=== PATIENT | female | born 1965 | race Caucasian/White ===

== ENCOUNTER 2017-06-27 18:18 | Emergency (ER) | payer MEDICAID ==
[2017-06-27] MEDS ORDERED: Ketorolac 30 MG/ML SDV IVPUSH ONE (18:46)
[2017-06-27] MEDS ORDERED: Sodium Chloride 0.9% 10 ML Syringe FLUSH PRN (18:46)
[2017-06-27] MEDS ORDERED: Haloperidol Lactate 5 MG/ML SDV IVPUSH ONE (18:46)
[2017-06-27] MEDS ORDERED: hydrOXYzine HCl 25 MG/ML SDV IM ONE (18:56)
[2017-06-27] MEDS ORDERED: Sodium Chloride 0.9% 1,000 ML IV ONE (18:57)
[2017-06-27] MEDS ORDERED: Haloperidol Lactate 5 MG/ML SDV IM ONE (19:15)
[2017-06-27] MEDS ORDERED: Ketorolac 60 MG/2 ML SDV IM ONE (19:20)
--- NOTE | 2017-06-27 19:24 | EDM.PDOC ---
ED HPI GENERAL MEDICAL PROBLEM - General Chief Complaint: Headache Stated Complaint: HEADACHE Time Seen by Provider: 06/27/17 18:38 Source of Information: Reports: Patient History Limitations: Reports: No Limitations - History of Present Illness INITIAL COMMENTS - FREE TEXT/NARRATIVE: Patient is a 52-year-old female with a history of CVA, coronary artery disease, migraines, seizures, bipolar, OCD, PTSD, anxiety, and depression who presents to the ED complaining of left-sided migraine headache. Patient states this started approximately 4 days ago. She has taken Excedrin Migraine and also Imitrex with no relief. Headache is mild to moderate intensity similar to previous episodes. It is not described as the worst headache of her life. Patient walked into the ED on her own accord. Has some photosensitivity noted with no hyperacusis. Denies any focalized neurological deficits. No increased stress in life. Has recently moved from [facility] and does not have a PCP here locally. In addition patient suffered a stroke twice last year and has left-sided facial droop with no other lasting effects. She denies any fever, stiff neck, chest pain, shortness of breath, numbness or tingling to extremities , dysuria, abdominal pain, or any additional complaints. She is on no anticoagulants. Treatments PUBLIC HOUSING INTERVIEWER: Reports: Other (see below) Other Treatments PUBLIC HOUSING INTERVIEWER: excedrin Left Headache Pain Score (Numeric/FACES): 9 - Related Data Allergies Allergy/AdvReac Type Severity Reaction Status Date / Time amitriptyline Allergy Cannot Verified 12/13/14 20:30 Remember ammonia Allergy Cannot Verified 05/01/15 10:29 Remember diphenhydramine HCl Allergy Cannot Verified 12/13/14 20:30 [From Benadryl] Remember divalproex sodium Allergy Other Verified 06/27/17 18:34 [From Depakote] gabapentin [From Neurontin] Allergy Cannot Verified 12/13/14 20:30 Remember latex Allergy Shortness Verified 12/13/14 20:30 of Breath perfume Allergy Cannot Verified 04/30/15 13:50 Remember soap Allergy Cannot Verified 04/30/15 13:50 Remember fiberglass luggage molder Allergy Cannot Uncoded 04/30/15 13:50 Remember Home Meds: Home Meds Omeprazole [Prilosec] 20 mg PO DAILY 04/30/15 [History] cloNIDine HCl [Catapres] 0.1 mg PO DAILY 04/30/15 [History] clonazePAM [Clonazepam] 0.5 mg PO BEDTIME 04/30/15 [History] Doxepin [SINEquan] 300 mg PO BEDTIME 06/27/17 [History] Lurasidone HCl [Latuda] 60 mg PO DAILY 06/27/17 [History] QUEtiapine [SEROquel] 300 mg PO DAILY 06/27/17 [History] SUMAtriptan [Imitrex] 1 injection INJECT DAILY PRN 06/27/17 [History] Past Medical History HEENT History: Reports: Impaired Vision Other HEENT History: otitis media, eye surgery, glasses Cardiovascular History: Reports: Hypertension Other Cardiovascular History: angioplasty Respiratory History: Reports: Asthma Gastrointestinal History: Reports: GERD, Hiatal Hernia Genitourinary History: Reports: Urinary Incontinence CUT FILER History: Reports: Other OB/BYN History: cervical mass, chlamydia in 1989; currently S/P TVH Other Musculoskeletal History: Degenerative joint disease, talupes cavus, R Side low back pain and sciatica, back surgery x 2 Neurological History: Reports: CVA, Migraines, Seizure Other Neuro History: hx of seizures; last seizure was 09/2014; not a seizure diagnosis per EEG, but a seizure caused by medications; stroke x 2 a year ago Psychiatric History: Reports: Bipolar, OCD, PTSD Other Psychiatric History: insomnia; Pt. has tremors noted to her head, neck and arms. Pt. states the tremors are from the medication she is on. Dermatologic History: Reports: Decubitus Ulcer Other Dermatologic History: Previously healed decubitus ulcers on thighs due to neuropathy and treated by [facility] in [place], [place]. Decubitus ulcer on heel of right foot treated by legal arbitrator in [place], [place]. A "crack" is noted to very dry skin or callous to Pt.'s heel is still noted - Past Surgical History Female Surgical History: Reports: Endometrial Ablation, Tubal Ligation Social & Family History - Family History HEENT: Reports: Cataract Cardiac: Reports: [place] GI: Reports: Inflammatory Bowel Disease, Other (See Below) Other GI Family History: colitis OBGYN: Reports: Other (See Below) Other OBGYN Family History: cervical cancer Psychiatric: Reports: ADHD, Bipolar, Schizophrenia Endocrine/Metabolic: Reports: Other (See Below) Other Endocrine/Metabolic Family History: several family members with diabetes Oncologic: Reports: Cervix, Uterine - Tobacco Use Smoking Status *Q: Never Smoker Years of Tobacco use: 13 Used Tobacco, but Quit: No Second Hand Smoke Exposure: No - Caffeine Use Caffeine Use: Reports: None - Alcohol Use Days Per Week of Alcohol Use: 0 - Recreational Drug Use Recreational Drug Use: No Drug Use in Last 12 Months: Yes Recreational Drug Type: Reports: Marijuana/Hashish Recreational Drug Use Frequency: Rarely ED ROS GENERAL - Review of Systems Review Of Systems: ROS reveals no pertinent complaints other than HPI. - Physical Exam Exam: See Below Exam Limited By: No Limitations General Appearance: Alert, WD/WN, Mild Distress Eye Exam: Bilateral Eye: EOMI, PERRL Ears: Hearing Grossly Normal Nose: Normal Inspection Throat/Mouth: Normal Inspection, Normal Oropharynx, Normal Voice, No Airway Compromise Head Exam: Atraumatic, Normocephalic. No: Scalp Tenderness, Facial Tenderness Neck: Normal Inspection, Supple, Non-Tender, Full Range of Motion Respiratory/Chest: No Respiratory Distress, Lungs Clear, Normal Breath Sounds, No Accessory Muscle Use Cardiovascular: Normal Peripheral Pulses, Regular Rate, Rhythm GI/Abdominal: Normal Bowel Sounds, Soft, Non-Tender, No Organomegaly, No Distention Neuro Exam (Abbreviated): Alert, Oriented, CN II-XII Intact, Normal Cognition, Normal Gait, No Motor/Sensory Deficits, Other (Patient has mild left-sided facial droop secondary to 2 strokes this past year. Patient has no slurred speech, due with the swelling, uvula deviation, weakness discrepancy is to the upper and lower extremities. Cerebellar function intact including: Finger-nose, rapid alternating movements, and [id number].) Back Exam: Normal Inspection Extremities: Normal Inspection, Normal Range of Motion, Non-Tender, Normal Capillary Refill Psychiatric: Normal Affect, Normal Mood Skin Exam: Warm, Dry, Intact, Normal Color Course - Vital Signs Last Recorded V/S: Last Vital Signs Temp 97.1 F 06/27/17 18:30 Pulse 121 H 06/27/17 18:30 Resp 20 06/27/17 18:30 BP 140/90 06/27/17 20:35 Pulse Ox 99 06/27/17 18:30 - Orders/Labs/Meds Orders: Active Orders 24 hr Category Date Time Status EKG 12 Lead [EKG Documentation Completion] [RC] STAT Care 06/27/17 18:58 Active Peripheral IV Care [RC] . DIRECTED Care 06/27/17 18:46 Inactive Meds: Medications Discontinued Medications Generic Name Dose Route Start Last Admin Trade Name Freq PRN Reason Stop Dose Admin Haloperidol Lactate 5 mg 06/27/17 18:46 Haldol IVPUSH 06/27/17 18:47 ONETIME ONE Haloperidol Lactate 5 mg 06/27/17 19:15 06/27/17 19:28 Haldol IM 06/27/17 19:16 5 mg ONETIME ONE Administration Hydroxyzine HCl 25 mg 06/27/17 18:56 06/27/17 19:29 Vistaril IM 06/27/17 18:57 25 mg ONETIME ONE Administration Sodium Chloride 1,000 mls @ 999 mls/hr 06/27/17 18:57 Normal Saline IV 06/27/17 19:57 ONETIME ONE Ketorolac Tromethamine 30 mg 06/27/17 18:46 Toradol IVPUSH 06/27/17 18:47 ONETIME ONE Ketorolac Tromethamine 60 mg 06/27/17 19:20 06/27/17 19:33 Toradol IM 06/27/17 19:21 60 mg ONETIME ONE Administration Lisinopril 10 mg 06/28/17 20:23 Prinivil PO 06/28/17 20:24 DAILY ONE Lisinopril 10 mg 06/27/17 20:23 06/27/17 20:35 Prinivil PO 06/27/17 20:24 10 mg DAILY ONE Administration Sodium Chloride 10 ml 06/27/17 18:46 Saline Flush FLUSH ASDIRECTED PRN Keep Vein Open - Re-Assessments/Exams Free Text/Narrative Re-Assessment/Exam: EKG obtained sinus rhythm with one PVC. Right atrial hypertrophy. Diffuse early repolarization pattern. No signs of ischemia. QTC 431. For abortive therapy Will go ahead with albuterol 5 mg IM, hydroxyzine 25 mg IM , and Toradol 60 mg IM. No imaging will be obtained at this time. Again this is not the worst headache of her life. Similar to previous episodes. Refractory to home medication therapy. 2007 Reassessment: Patient states the headache has significantly improved. She is ready be discharged home. She does have a ride arranged. Discharge instructions as documented. Pt's BP prior to discharge was 162/101. States she is on lisinopril 10 mg everyday. Will increase to 20mg everyday. Additional 10mg's given in the E.D. Departure - Departure Time of Disposition: 20:09 Disposition: Home, Self-Care 01 Condition: Good Clinical Impression: Migraine - Discharge Information Instructions: Migraine Headache, [id number] Referrals: PCP,Not In Area [Primary Care Provider] - Forms: ED Department Discharge Additional Instructions: Blood pressure continued to be elevated with admission to the ED. Will increase your lisinopril from 10 mg every day to 20 mg every day. Push the fluids. In addition will have you go home find a dark room to sleep with no distractions. May utilize Aleve 1-2 tabs twice a day and also Tylenol 650 mg every 4-6 hours for headache. Take Zofran 4 mg ODT every 6 hours as needed for nausea vomiting. Follow-up with your primary care provider this week for reevaluation. Suggest taking your blood pressure once daily with a log. BRing the log and also blood pressure machine with you to your next appointment. Take the blood pressure at the same time and same way every day for consistency. Return to the ED if you develop any new or worsening symptoms. - My Orders Last 24 Hours: My Active Orders 06/27/17 18:46 Peripheral IV Care [RC] . DIRECTED 06/27/17 18:58 EKG 12 Lead [EKG Documentation Completion] [RC] STAT - Assessment/Plan Last 24 Hours: My Active Orders 06/27/17 18:46 Peripheral IV Care [RC] . DIRECTED 06/27/17 18:58 EKG 12 Lead [EKG Documentation Completion] [RC] STAT
[2017-06-27] MEDS ORDERED: Lisinopril 10 MG Tab PO ONE (20:23)
[2017-06-27 20:37] VITALS: BP 140/90
[2017-06-28] MEDS ORDERED: Lisinopril 10 MG Tab PO ONE (20:23)
== END 2017-06-27 20:35 | disposition home or self-care (01) ==
LOC: JD.ED 18:18
DX: G43.909 Migraine, unspecified, not intractable, without status migrainosus (principal); I10 Essential (primary) hypertension; Z86.73 Personal history of transient ischemic attack (TIA), and cerebral infarction without residual deficits; Z88.8 Allergy status to other drugs, medicaments and biological substances; Z91.040 Latex allergy status; Z91.048 Other nonmedicinal substance allergy status; Z79.899 Other long term (current) drug therapy
CPT/HCPCS: 93005; 96372; 99284; A9270; J1885; J3410; 93010; J1630

== ENCOUNTER 2017-08-26 15:10 | Emergency (ER) | payer MEDICAID ==
[2017-08-26 15:22] VITALS: BP 197/101
[2017-08-26] MEDS ORDERED: Sodium Chloride 0.9% 10 ML Syringe FLUSH PRN (15:38)
[2017-08-26] MEDS ORDERED: Aspirin 81 MG Tab.Chew PO ONE (15:38)
--- NOTE | 2017-08-26 15:39 | EDM.PDOC ---
ED HPI GENERAL MEDICAL PROBLEM - General Chief Complaint: Cardiovascular Problem Stated Complaint: CHEST PAIN Time Seen by Provider: 08/26/17 15:18 Source of Information: Reports: Patient History Limitations: Reports: No Limitations - History of Present Illness INITIAL COMMENTS - FREE TEXT/NARRATIVE: The patient presents with left sided chest pain. This started about 3 weeks ago. The pain is on the left side up to her arm and shoulder. She has no shortness of breath with it. The pain is there most of the time. It is worse at night. She have reflux at night with more pain. She has no fever, chills, cough, abdominal pain, nausea or vomiting. She has no history of asthma and HTN. She also had angioplasty. She has a history of hiatal hernia. Onset: Gradual Duration: Week(s): (3) Location: Reports: Chest Quality: Reports: Sharp Severity: Moderate Improves with: Reports: None Worsens with: Reports: None Associated Symptoms: Reports: Chest Pain. Denies: Cough, Fever/Chills, Headaches, Nausea/Vomiting, Shortness of Breath - Related Data Allergies Allergy/AdvReac Type Severity Reaction Status Date / Time amitriptyline Allergy Cannot Verified 08/26/17 15:22 Remember ammonia Allergy Cannot Verified 08/26/17 15:22 Remember diphenhydramine HCl Allergy Cannot Verified 08/26/17 15:22 [From Benadryl] Remember divalproex sodium Allergy Other Verified 08/26/17 15:22 [From Depakote] gabapentin [From Neurontin] Allergy Cannot Verified 08/26/17 15:22 Remember latex Allergy Shortness Verified 08/26/17 15:22 of Breath perfume Allergy Cannot Verified 08/26/17 15:22 Remember soap Allergy Cannot Verified 08/26/17 15:22 Remember pier hand helper Allergy Cannot Uncoded 08/26/17 15:22 Remember Home Meds: Home Meds Omeprazole [Prilosec] 20 mg PO DAILY 04/30/15 [History] cloNIDine HCl [Catapres] 0.1 mg PO DAILY 04/30/15 [History] clonazePAM [Clonazepam] 0.5 mg PO BEDTIME 04/30/15 [History] Doxepin [SINEquan] 300 mg PO BEDTIME 06/27/17 [History] Lurasidone HCl [Latuda] 60 mg PO DAILY 06/27/17 [History] QUEtiapine [SEROquel] 300 mg PO DAILY 06/27/17 [History] SUMAtriptan [Imitrex] 1 injection INJECT DAILY PRN 06/27/17 [History] Desvenlafaxine Succinate [Pristiq ER] 25 mg PO DAILY 08/26/17 [History] Lisinopril 20 mg PO DAILY 08/26/17 [History] Metoclopramide HCl [Reglan] 5 mg PO Q6HR #30 tablet 08/26/17 [Rx] Sucralfate [Carafate] 1 gm PO Q6H PRN #300 ml 08/26/17 [Rx] Past Medical History HEENT History: Reports: Impaired Vision Other HEENT History: otitis media, eye surgery, glasses Cardiovascular History: Reports: Hypertension Other Cardiovascular History: angioplasty Respiratory History: Reports: Asthma Gastrointestinal History: Reports: GERD, Hiatal Hernia Genitourinary History: Reports: Urinary Incontinence 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 has tremors noted to her head, neck and arms. Pt. states the tremors are from the medication she is on. Endocrine/Metabolic History: Reports: Obesity/BMI 30+ Dermatologic History: Reports: Decubitus Ulcer Other Dermatologic History: Previously healed decubitus ulcers on thighs due to neuropathy and treated by [facility] in [place], [place]. Decubitus ulcer on heel of right foot treated by acoustic intelligence specialist in [place], [place]. A "crack" is noted to very dry skin or callous to Pt.'s heel is still noted - Past Surgical History Female Surgical History: Reports: Endometrial Ablation, Tubal Ligation Social & Family History - Family History HEENT: Reports: Cataract Cardiac: Reports: [place] GI: Reports: Inflammatory Bowel Disease, Other (See Below) Other GI Family History: colitis OBGYN: Reports: Other (See Below) Other OBGYN Family History: cervical cancer Psychiatric: Reports: ADHD, Bipolar, Schizophrenia Endocrine/Metabolic: Reports: Other (See Below) Other Endocrine/Metabolic Family History: several family members with diabetes Oncologic: Reports: Cervix, Uterine - Tobacco Use Smoking Status *Q: Never Smoker Second Hand Smoke Exposure: No - Caffeine Use Caffeine Use: Reports: Coffee - Recreational Drug Use Recreational Drug Use: No ED ROS GENERAL - Review of Systems Review Of Systems: See Below Constitutional: Reports: No Symptoms HEENT: Reports: No Symptoms Respiratory: Reports: No Symptoms Cardiovascular: Reports: Chest Pain Endocrine: Reports: No Symptoms GI/Abdominal: Reports: No Symptoms : Reports: No Symptoms Musculoskeletal: Reports: No Symptoms ED EXAM, GENERAL - Physical Exam Exam: See Below Exam Limited By: No Limitations General Appearance: Alert, No Apparent Distress Ears: Normal External Exam Nose: Normal Inspection Head: Atraumatic, Normocephalic Neck: Normal Inspection Respiratory/Chest: No Respiratory Distress, Lungs Clear, Normal Breath Sounds Cardiovascular: Regular Rate, Rhythm, No Edema, No Murmur GI/Abdominal: Soft, Non-Tender, No Organomegaly, No Mass Back Exam: Normal Inspection Extremities: Normal Inspection Neurological: Alert, Oriented, No Motor/Sensory Deficits EKG INTERPRETATION EKG Date: 08/26/17 Time: 15:17 Rhythm: Other (sinus tachycardia) Rate (Beats/Min): 102 [place]: Normal P-Wave: Present QRS: Normal ST-T: Normal QT: Normal EKG Interpretation Comments: PVC Course - Vital Signs Last Recorded V/S: Last Vital Signs Temp 97.8 F 08/26/17 15:15 Pulse 104 H 08/26/17 15:15 Resp 22 H 08/26/17 15:15 BP 197/101 H 08/26/17 15:15 Pulse Ox 98 08/26/17 15:15 - Orders/Labs/Meds Orders: Active Orders 24 hr Category Date Time Status Cardiac Monitoring [RC] . DIRECTED Care 08/26/17 15:38 Active EKG Documentation Completion [RC] STAT Care 08/26/17 15:30 Active Peripheral IV Care [RC] . DIRECTED Care 08/26/17 15:39 Active Sodium Chloride 0.9% [Saline Flush] Med 08/26/17 15:38 Active 10 ml FLUSH ASDIRECTED PRN Peripheral IV Insertion Adult [OM.PC] Stat Oth 08/26/17 15:38 Ordered Medication Orders Sodium Chloride (Saline Flush) 10 ml FLUSH ASDIRECTED PRN PRN Reason: Keep Vein Open Last Admin: 08/26/17 16:00 Dose: 0.01 ml Labs: Laboratory Tests 08/26/17 08/26/17 08/26/17 Range/Units 15:50 15:50 15:50 WBC 7.45 (3.98-10.04) K/mm3 RBC 4.97 (3.98-5.22) M/mm3 Hgb 13.8 (11.2-15.7) gm/L Hct 42.8 (34.1-44.9) % MCV 86.1 (79.4-94.8) fl MCH 27.8 (25.6-32.2) pg MCHC 32.2 (32.2-35.5) g/dl RDW Std Deviation 44.3 (36.4-46.3) fL Plt Count 264 (182-369) K/mm3 MPV 10.2 (9.4-12.3) fl Neut % (Auto) 46.3 (34.0-71.1) % Lymph % (Auto) 39.6 (19.3-51.7) % [place] % (Auto) 6.4 (4.7-12.5) % Eos % (Auto) 6.8 H (0.7-5.8) Baso % (Auto) 0.4 (0.1-1.2) % Neut # (Auto) 3.44 (1.56-6.13) K/mm3 Lymph # (Auto) 2.95 (1.18-3.74) K/mm3 [place] # (Auto) 0.48 H (0.24-0.36) K/mm3 Eos # (Auto) 0.51 H (0.04-0.36) K/mm3 Baso # (Auto) 0.03 (0.01-0.08) K/mm3 D-Dimer, Quantitative 0.39 (0.19-0.50) mg/L Sodium 139 (136-145) mEq/L Potassium 4.0 (3.5-5.1) mEq/L Chloride 103 (98-107) mEq/L Carbon Dioxide 28 (21-32) mEq/L Anion Gap 12.0 (5-15) BUN 14 (7-18) mg/dL Creatinine 1.3 H (0.55-1.02) mg/dL Est Cr Clr Drug Dosing 57.75 mL/min Estimated GFR (MDRD) 43 (>60) mL/min BUN/Creatinine Ratio 10.8 L (14-18) Glucose 96 (74-106) mg/dL Calcium 8.8 (8.5-10.1) mg/dL Total Bilirubin 0.4 (0.2-1.0) mg/dL AST 17 (15-37) U/L ALT 22 (14-59) U/L Alkaline Phosphatase 118 H (46-116) U/L Troponin I < 0.017 (0.00-0.056) ng/mL Total Protein 8.0 (6.4-8.2) g/dl Albumin 3.8 (3.4-5.0) g/dl Globulin 4.2 gm/dL Albumin/Globulin Ratio 0.9 L (1-2) H. pylori IgG Antibody (NEGATIVE) 08/26/17 Range/Units 15:50 WBC (3.98-10.04) K/mm3 RBC (3.98-5.22) M/mm3 Hgb (11.2-15.7) gm/L Hct (34.1-44.9) % MCV (79.4-94.8) fl MCH (25.6-32.2) pg MCHC (32.2-35.5) g/dl RDW Std Deviation (36.4-46.3) fL Plt Count (182-369) K/mm3 MPV (9.4-12.3) fl Neut % (Auto) (34.0-71.1) % Lymph % (Auto) (19.3-51.7) % [place] % (Auto) (4.7-12.5) % Eos % (Auto) (0.7-5.8) Baso % (Auto) (0.1-1.2) % Neut # (Auto) (1.56-6.13) K/mm3 Lymph # (Auto) (1.18-3.74) K/mm3 [place] # (Auto) (0.24-0.36) K/mm3 Eos # (Auto) (0.04-0.36) K/mm3 Baso # (Auto) (0.01-0.08) K/mm3 D-Dimer, Quantitative (0.19-0.50) mg/L Sodium (136-145) mEq/L Potassium (3.5-5.1) mEq/L Chloride (98-107) mEq/L Carbon Dioxide (21-32) mEq/L Anion Gap (5-15) BUN (7-18) mg/dL Creatinine (0.55-1.02) mg/dL Est Cr Clr Drug Dosing mL/min Estimated GFR (MDRD) (>60) mL/min BUN/Creatinine Ratio (14-18) Glucose (74-106) mg/dL Calcium (8.5-10.1) mg/dL Total Bilirubin (0.2-1.0) mg/dL AST (15-37) U/L ALT (14-59) U/L Alkaline Phosphatase (46-116) U/L Troponin I (0.00-0.056) ng/mL Total Protein (6.4-8.2) g/dl Albumin (3.4-5.0) g/dl Globulin gm/dL Albumin/Globulin Ratio (1-2) H. pylori IgG Antibody Negative (NEGATIVE) Meds: Medications Generic Name Dose Route Start Last Admin Trade Name Frealis PRN Reason Stop Dose Admin Sodium Chloride 10 ml 08/26/17 15:38 08/26/17 16:00 Saline Flush FLUSH 0.01 ml ASDIRECTED PRN Administration Keep Vein Open Discontinued Medications Generic Name Dose Route Start Last Admin Trade Name Abilio PRN Reason Stop Dose Admin Aspirin 324 mg 08/26/17 15:38 08/26/17 16:00 Aspirin PO 08/26/17 15:39 324 mg ONETIME ONE Administration Al Hydroxide/Mg Hydroxide 30 0 ml 08/26/17 16:48 ml/ Lidocaine HCl 15 ml PO 08/26/17 16:49 ONETIME ONE - Re-Assessments/Exams Free Text/Narrative Re-Assessment/Exam: 08/26/17 16:37 I ordered an IV saline lock, EKG, CXR, labs, and aspirin. Her EKG shows a sinus tachycardia with no acute changes. Her CXR looks good. I am waiting on her labs work. 08/26/17 16:53 Her CBC and CMP look good. Her troponin and H-pylori are negative. I will give her a GI cocktail. I feel this is all GI related. I will get her on reglan. She says that has helped in the past. I will also have her take some carafate and prilosec and some pepcid. Departure - Departure Time of Disposition: 16:55 Disposition: Home, Self-Care 01 Condition: Good Clinical Impression: GERD (gastroesophageal reflux disease) Qualifiers: Esophagitis presence: with esophagitis Qualified Code(s): K21.0 - Gastro- esophageal reflux disease with esophagitis Prescriptions: Metoclopramide HCl [Reglan] 5 mg PO Q6HR #30 tablet Sucralfate [Carafate] 1 gm PO Q6H PRN #300 ml PRN Reason: Abdominal Pain Referrals: Taryn Tran SPRING MAKER [Primary Care Provider] - Juan M Sweet MD [Physician] - 1 Week Forms: ED Department Discharge Additional Instructions: Take the reglan every 6 hours as needed. You may also take the carafate every 6 hours. Take pepcid daily for at least 2 weeks. You may also try some prilosec OTC for at least 2 weeks. Follow up with Dr Sweet. You may need a scope of your stomach. Try to not eat late or eat large amounts of food late. Stay upright sitting or standing for about an hour after eating. Please return if you are worse. - My Orders Last 24 Hours: My Active Orders 08/26/17 15:30 EKG Documentation Completion [RC] STAT 08/26/17 15:38 Cardiac Monitoring [RC] . DIRECTED Sodium Chloride 0.9% [Saline Flush] 10 ml FLUSH ASDIRECTED PRN Peripheral IV Insertion Adult [OM.PC] Stat 08/26/17 15:39 Peripheral IV Care [RC] . DIRECTED - Assessment/Plan Last 24 Hours: My Active Orders 08/26/17 15:30 EKG Documentation Completion [RC] STAT 08/26/17 15:38 Cardiac Monitoring [RC] . DIRECTED Sodium Chloride 0.9% [Saline Flush] 10 ml FLUSH ASDIRECTED PRN Peripheral IV Insertion Adult [OM.PC] Stat 08/26/17 15:39 Peripheral IV Care [RC] . DIRECTED
--- NOTE | 2017-08-26 16:26 | CR ---
Chest: Portable view of the chest was obtained. Comparison: Prior chest x-ray of 12/13/14. Heart size and mediastinum are within normal limits for portable technique. Lungs are clear. Slightly prominent costochondral calcification is seen within the first right rib. Bony structures are grossly intact. Impression: 1. Nothing acute is seen on portable chest x-ray. Diagnostic code #2
[2017-08-26] MEDS ORDERED: Alum Hydrox/Mag Hydrox/Simeth 30 ML, Lidocaine 2% 15 ML PO ONE ×2 (16:48)
== END 2017-08-26 17:19 | disposition home or self-care (01) ==
LOC: JD.ED 15:10
DX: K21.0 Gastro-esophageal reflux disease with esophagitis (principal); I10 Essential (primary) hypertension; E66.9 Obesity, unspecified; Z88.8 Allergy status to other drugs, medicaments and biological substances; Z91.040 Latex allergy status; Z79.899 Other long term (current) drug therapy
CPT/HCPCS: 36415; 71045; 80053; 84484; 85025; 85379; 86677; 93005; 99285; A9270; J7050; 93010; 99283

== ENCOUNTER 2017-09-02 18:46 | Inpatient (IN) | payer MEDICAID ==
--- NOTE | 2017-09-02 19:10 | EDM.PDOC ---
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 21:19 nurses report temperatures spiked to 105.4. She'll be placed on a cooling blanket to help bring her temperature down. Will also add Tylenol 975 mg to her treatment plan. 09/02/17: 22:30 Urinalysis obtained by catheterization showed shows 2+ proteinuria 1+ occult blood positive nitrates 2+ leukocyte esterase with 10-20 WBCs per high-power field and a few urine blood cell clumps. Moderate bacteria appreciated. Therefore source of sepsis may well be urinary tract in origin. Urine culture ordered Departure - Departure Time of Disposition: 22:00 Disposition: Admitted As Inpatient 65 Condition: Serious Clinical Impression: Acute febrile illness, Infected open wound Urinary tract infection Qualifiers: Urinary tract infection type: site unspecified Hematuria presence: without hematuria Qualified Code(s): N39.0 - Urinary tract infection, site not specified - Discharge Information - My Orders Last 24 Hours: My Active Orders 09/02/17 19:00 CULTURE BLOOD [BC] Stat 09/02/17 19:10 Chest 1V Frontal [CR] Stat CULTURE BLOOD [BC] Stat 09/02/17 19:11 Foot Comp Min 3V Rt [CR] Stat Blood Culture x2 Reflex Set [OM.PC] Stat 09/02/17 19:15 Sodium Chloride 0.9% [Normal Saline] 1,000 ml IV ASDIRECTED 09/02/17 21:21 Admission Status [Patient Status] [ADT] Routine - Assessment/Plan Last 24 Hours: My Active Orders 09/02/17 19:00 CULTURE BLOOD [BC] Stat 09/02/17 19:10 Chest 1V Frontal [CR] Stat CULTURE BLOOD [BC] Stat 09/02/17 19:11 Foot Comp Min 3V Rt [CR] Stat Blood Culture x2 Reflex Set [OM.PC] Stat 09/02/17 19:15 Sodium Chloride 0.9% [Normal Saline] 1,000 ml IV ASDIRECTED 09/02/17 21:21 Admission Status [Patient Status] [ADT] Routine
[2017-09-02] MEDS ORDERED: Ibuprofen 800 MG Tab PO ONE (19:13)
[2017-09-02] MEDS: Sodium Chloride 0.9% 1,000 ML IV SCH ×2 (19:19→22:57)
[2017-09-02] MEDS ORDERED: Clindamycin Phosphate 900 MG in Sodium Chloride 0.9% 100 ML IV ONE (19:33)
[2017-09-02] MEDS ORDERED: Alum Hydrox/Mag Hydrox/Simeth 30 ML, Lidocaine 2% 15 ML PO ONE ×2 (20:26)
[2017-09-02] MEDS ORDERED: HYDROmorphone 0.5 MG/0.5 ML SYRINGE IVPUSH ONE (20:48)
[2017-09-02] MEDS ORDERED: Metoclopramide 10 MG/2 ML SDV IVPUSH ONE (20:49)
[2017-09-02] MEDS ORDERED: Acetaminophen 325 MG Tab PO ONE (21:19)
[2017-09-02] MEDS ORDERED: Sucralfate Suspension 1 GM/10 ML Cup PO PRN (21:30)
[2017-09-02] MEDS ORDERED: Metoprolol Tartrate 5 MG/5 ML SDV IVPUSH PRN (21:31)
[2017-09-02] MEDS ORDERED: LORazepam 2 MG/ML SDV IVPUSH PRN (21:31)
[2017-09-02] MEDS ORDERED: Docusate Sodium 100 MG Cap PO PRN (21:42)
[2017-09-02] MEDS ORDERED: Promethazine 12.5 MG in Sodium Chloride 0.9% 50 ML IV PRN (21:42)
[2017-09-02] MEDS ORDERED: Temazepam 15 MG Cap PO PRN (21:42)
[2017-09-02] MEDS ORDERED: LORazepam 2 MG/ML SDV IV PRN (21:42)
[2017-09-02] MEDS ORDERED: Albuterol/Ipratropium 3.0-0.5 MG/3 ML Neb Soln NEB PRN (21:42)
[2017-09-02] MEDS ORDERED: Bisacodyl 5 MG Tab PO PRN (21:42)
[2017-09-02] MEDS ORDERED: Polyethylene Glycol 3350 Powder 17 GM Packet PO PRN (21:42)
[2017-09-02] MEDS ORDERED: Ondansetron 4 MG/2 ML SDV IV PRN (21:42)
[2017-09-02] MEDS ORDERED: Vancomycin 500 MG SDV IV SCH (21:45)
--- NOTE | 2017-09-02 22:03 | PCM.HP ---
H&P History of Present Illness - General Date of Service: 09/02/17 Admit Problem/Dx: Admission Diagnosis/Problem Admission Diagnosis/Problem Acute febrile illness Source of Information: Patient, Family, Old Records, Provider, RN Notes Reviewed History Limitations: Reports: Physical Impairment - History of Present Illness Initial Comments - Free Text/Narative: This is a 51-year-old morbidly obese white female with past medical history of Impaired Vision, HTN, HLD, Angioplasty, Asthma, GERD, Hiatal hernia, Urinary Incontinence, S/p TVH, DJD, Talipes Cavus, LBP with Sciatica S/p Surgery x2, Hx/ o CVA, Migraines, Seizures, BPD, OCD, PTSD, Insomnia, Essential Tremors, and Morbid Obesity with BMI of 40+ who comes in the evaluation of increased right lower extremity spasm/pain. She rates her pain at 8-9/10 on pain scale. Her chief complaint is associated with fever,chills, nausea, vomiting, and severe pyrosis/reflux disease. Patient reports having an ulcerated lesion localized to her right heel that has been going on for 6 weeks now. She states having bilateral lower extremity peripheral neuropathy R>>L and paresis after her second back surgery. Her initial workup in emergency department shows a CBC remarkable for WBC of 15.53, neutrophils of 91%, lymphocytes of 5%, and ESR of 1.3. Her chemistry is significant for potassium of 3.4, BUN of 25, creatinine of 1.8, glucose of 142, alkaline phosphatase of 238, CRP of 37.1, proBNP of 238, and albumin of 2.9. Chest and foot x-rays both show no acute abnormal findings. Since being admitted for sepsis secondary to right foot ulcer. She is full code. Right Upper Leg Pain Score (Numeric/FACES): 7 - Related Data Allergies/Adverse Reactions: Allergies Allergy/AdvReac Type Severity Reaction Status Date / Time amitriptyline Allergy Cannot Verified 09/02/17 19:02 Remember ammonia Allergy Cannot Verified 09/02/17 19:02 Remember diphenhydramine HCl Allergy Cannot Verified 09/02/17 19:02 [From Benadryl] Remember divalproex sodium Allergy Other Verified 09/02/17 19:02 [From Depakote] gabapentin [From Neurontin] Allergy Cannot Verified 09/02/17 19:02 Remember latex Allergy Shortness Verified 09/02/17 19:02 of Breath perfume Allergy Cannot Verified 09/02/17 19:02 Remember soap Allergy Cannot Verified 09/02/17 19:02 Remember 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 manager electronics Allergy Cannot Uncoded 08/26/17 15:22 Remember Home Medications: Home Meds cloNIDine HCl [Catapres] 0.1 mg PO DAILY 04/30/15 [History] clonazePAM [Clonazepam] 0.5 mg PO BEDTIME 04/30/15 [History] Lurasidone HCl [Latuda] 60 mg PO DAILY 06/27/17 [History] QUEtiapine [SEROquel] 300 mg PO DAILY 06/27/17 [History] SUMAtriptan [Imitrex] 1 injection INJECT DAILY PRN 06/27/17 [History] Desvenlafaxine Succinate [Pristiq ER] 25 mg PO DAILY 08/26/17 [History] Lisinopril 20 mg PO DAILY 08/26/17 [History] Metoclopramide HCl [Reglan] 5 mg PO Q6HR #30 tablet 08/26/17 [Rx] Sucralfate [Carafate] 1 gm PO Q6H PRN #300 ml 08/26/17 [Rx] Past Medical History HEENT History: Reports: Impaired Vision Other HEENT History: otitis media, eye surgery, glasses Cardiovascular History: Reports: High Cholesterol, Hypertension Other Cardiovascular History: angioplasty Respiratory History: Reports: Asthma Gastrointestinal History: Reports: GERD, Hiatal Hernia Genitourinary History: Reports: Urinary Incontinence 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 has tremors noted to her head, neck and arms. Pt. states the tremors are from the medication she is on. Endocrine/Metabolic History: Reports: Obesity/BMI 30+ Dermatologic History: Reports: Decubitus Ulcer Other Dermatologic History: Previously healed decubitus ulcers on thighs due to neuropathy and treated by [facility] in [place], [place]. Decubitus ulcer on heel of right foot treated by regulatory affairs analyst in [place], [place]. A "crack" is noted to very dry skin or callous to Pt.'s heel is still noted - Past Surgical History Female Surgical History: Reports: Endometrial Ablation, Tubal Ligation Social & Family History - Family History HEENT: Reports: Cataract Cardiac: Reports: DC GI: Reports: Inflammatory Bowel Disease, Other (See Below) Other GI Family History: colitis OBGYN: Reports: Other (See Below) Other OBGYN Family History: cervical cancer Psychiatric: Reports: ADHD, Bipolar, Schizophrenia Endocrine/Metabolic: Reports: Other (See Below) Other Endocrine/Metabolic Family History: several family members with diabetes Oncologic: Reports: Cervix, Uterine - Tobacco Use Smoking Status *Q: Never Smoker Second Hand Smoke Exposure: No - Caffeine Use Caffeine Use: Reports: Coffee - Recreational Drug Use Recreational Drug Use: No - Living Situation & Occupation Living situation: Reports: Single Occupation: Disabled H&P Review of Systems - Review of Systems: Review Of Systems: See Below General: Reports: Fever, Chills, Decreased Appetite HEENT: Reports: No Symptoms, Other (dry mouth) Pulmonary: Denies: Shortness of Breath Cardiovascular: Reports: Palpitations. Denies: Chest Pain, Dyspnea on Exertion , Lightheadedness Gastrointestinal: Reports: Nausea, Vomiting. Denies: Anorexia Genitourinary: Reports: No Symptoms Musculoskeletal: Reports: Muscle Pain, Other (bilateral lower extremity peripheral neuropathy and paresis; diffuse myalgia; wheel chair bound) Skin: Reports: Bruising, Other (deep ulcerated lesion on posterio aspect of her right foot). Denies: Cyanosis, Mottled, Pallor, Diaphoresis Psychiatric: Reports: Depression. Denies: Anxiety, Agitation, Hallucinations, Suicidal Ideation, Homicidal Ideation Neurological: Reports: Difficulty Walking, Weakness, Gait Disturbance. Denies: Confusion, Dizziness, Headache, Pre-Existing Deficit, Tremors Hematologic/Lymphatic: Reports: No Symptoms Immunologic: Reports: No Symptoms Exam - Exam Exam: See Below - Vital Signs Vital Signs: Last Vital Signs Temp 41.1 C H 09/02/17 21:26 Pulse 119 H 09/02/17 18:58 Resp 15 09/02/17 18:58 BP 165/91 H 09/02/17 18:58 Pulse Ox 97 09/02/17 18:58 Weight: 134.717 kg - Exam General: Alert, Oriented, Cooperative, Mild Distress, Other (Morbidly Obese) HEENT: Conjunctiva Clear, EACs Clear, EOMI, Hearing Intact, Mucosa Moist & [place] , Nares Patent, Normal Nasal Septum, Posterior Pharynx Clear, Pupils Equal, Pupils Reactive Neck: Supple, Trachea Midline, +2 Carotid Pulse wo Bruit, Full Range of Motion, Other (short neck) Lungs: Normal Respiratory Effort, Decreased Breath Sounds Cardiovascular: Regular Rhythm, Tachycardia GI/Abdominal Exam: Normal Bowel Sounds, Soft, Non-Tender, No Organomegaly, No Distention, No Abnormal Bruit, No Mass, Other (Obese) (Female) Exam: Deferred Rectal (Female) Exam: Deferred Back Exam: Normal Inspection, Decreased Range of Motion, Muscle Spasm, Vertebral Tenderness Extremities: Normal Range of Motion, Non-Tender, Normal Capillary Refill Peripheral Pulses: 3+: Posterior Tibial (L), Posterior Tibial (R), Dorsalis Pedis (L), Dorsalis Pedis (R) Skin: Warm, Dry, Intact, Ecchymosis (right thigh) Neuro Extensive - Mental Status: Oriented x3, Normal Cognition, Memory Intact Neuro Extensive - Motor, Sensory, Reflexes: Abnormal Gait, Abnormal Sensation ( on bilateral lower extremity), Abnormal Motor, Other (weakness and pain on right posterior thigh). No: Babinski Psychiatric: Alert, Normal Affect, Normal Mood - Patient Data Lab Results Last 24 hrs: Laboratory Results - last 24 hr 09/02/17 09/02/17 09/02/17 Range/Units 19:00 19:00 19:00 WBC 15.53 H (3.98-10.04) K/mm3 RBC 4.23 (3.98-5.22) M/mm3 Hgb 11.6 (11.2-15.7) gm/L Hct 36.0 (34.1-44.9) % MCV 85.1 (79.4-94.8) fl MCH 27.4 (25.6-32.2) pg MCHC 32.2 (32.2-35.5) g/dl RDW Std Deviation 44.0 (36.4-46.3) fL Plt Count 221 (182-369) K/mm3 MPV 11.0 (9.4-12.3) fl Neutrophils % (Manual) 91 H (40-60) % Band Neutrophils % 0 (0-10) % Lymphocytes % (Manual) 5 L (20-40) % Atypical Lymphs % 0 % Monocytes % (Manual) 4 (2-10) % Eosinophils % (Manual) 0 L (0.7-5.8) % Basophils % (Manual) 0 L (0.1-1.2) Platelet Estimate Adequate Plt Morphology Comment Normal RBC Morph Comment Normal ESR (0-20) mm/hr Sodium 137 (136-145) mEq/L Potassium 3.4 L (3.5-5.1) mEq/L Chloride 101 (98-107) mEq/L Carbon Dioxide 25 (21-32) mEq/L Anion Gap 14.4 (5-15) BUN 25 H (7-18) mg/dL Creatinine 1.8 H (0.55-1.02) mg/dL Est Cr Clr Drug Dosing 40.40 mL/min Estimated GFR (MDRD) 29 (>60) mL/min BUN/Creatinine Ratio 13.9 L (14-18) Glucose 142 H (74-106) mg/dL Lactic Acid 0.9 (0.4-2.0) mmol/L Calcium 8.5 (8.5-10.1) mg/dL Magnesium 2.1 (1.8-2.4) mg/dl Total Bilirubin 0.6 (0.2-1.0) mg/dL AST 32 (15-37) U/L ALT 41 (14-59) U/L Alkaline Phosphatase 238 H (46-116) U/L Creatine Kinase 133 (26-192) U/L C-Reactive Protein 37.1 H* (<1.0) mg/dL NT-Pro-B Natriuret Pep (0-125) pg/mL Total Protein 7.9 (6.4-8.2) g/dl Albumin 2.9 L (3.4-5.0) g/dl Globulin 5.0 gm/dL Albumin/Globulin Ratio 0.6 L (1-2) 18 09/02/17 Range/Units 19:00 19:00 WBC (3.98-10.04) K/mm3 RBC (3.98-5.22) M/mm3 Hgb (11.2-15.7) gm/L Hct (34.1-44.9) % MCV (79.4-94.8) fl MCH (25.6-32.2) pg MCHC (32.2-35.5) g/dl RDW Std Deviation (36.4-46.3) fL Plt Count (182-369) K/mm3 MPV (9.4-12.3) fl Neutrophils % (Manual) (40-60) % Band Neutrophils % (0-10) % Lymphocytes % (Manual) (20-40) % Atypical Lymphs % % Monocytes % (Manual) (2-10) % Eosinophils % (Manual) (0.7-5.8) % Basophils % (Manual) (0.1-1.2) Platelet Estimate Plt Morphology Comment RBC Morph Comment ESR 103 H (0-20) mm/hr Sodium (136-145) mEq/L Potassium (3.5-5.1) mEq/L Chloride (98-107) mEq/L Carbon Dioxide (21-32) mEq/L Anion Gap (5-15) BUN (7-18) mg/dL Creatinine (0.55-1.02) mg/dL Est Cr Clr Drug Dosing mL/min Estimated GFR (MDRD) (>60) mL/min BUN/Creatinine Ratio (14-18) Glucose (74-106) mg/dL Lactic Acid (0.4-2.0) mmol/L Calcium (8.5-10.1) mg/dL Magnesium (1.8-2.4) mg/dl Total Bilirubin (0.2-1.0) mg/dL AST (15-37) U/L ALT (14-59) U/L Alkaline Phosphatase (46-116) U/L Creatine Kinase (26-192) U/L C-Reactive Protein (<1.0) mg/dL NT-Pro-B Natriuret Pep 200 H (0-125) pg/mL Total Protein (6.4-8.2) g/dl Albumin (3.4-5.0) g/dl Globulin gm/dL Albumin/Globulin Ratio (1-2) Result Diagrams: 09/03/17 06:05 09/03/17 06:05 EKG INTERPRETATION EKG Date: 09/02/17 Time: 07:18 Rhythm: Other (Sinus Tachycardia) Rate (Beats/Min): 120 QT: Prolonged EKG Interpretation Comments: Q wave in V1-V2i Problem List Initiated/Reviewed/Updated: Yes Orders Last 24hrs: Active Orders 24 hr Category Date Time Status Admission Status [Patient Status] [ADT] Routine ADT 09/02/17 21:21 Active Cardiac Monitoring [RC] CONTINUOUS Care 09/02/17 21:43 Active EKG Documentation Completion [RC] STAT Care 09/02/17 19:11 Active Height and Weight [RC] DAILY Care 09/02/17 21:42 Active Intake and Output [RC] QSHIFT Care 09/02/17 21:43 Active Notify Provider Consults [RC] ASDIRECTED Care 09/02/17 21:53 Active Oxygen Therapy [RC] PRN Care 09/02/17 21:42 Active RT Aerosol Therapy [RC] ASDIRECTED Care 09/02/17 21:46 Active Up With Assistance [RC] ASDIRECTED Care 09/02/17 21:42 Active Up to Chair [RC] ASDIRECTED Care 09/02/17 21:42 Active VTE/DVT Education [RC] PER UNIT ROUTINE Care 09/02/17 21:42 Active Vital Signs [RC] Q4H Care 09/02/17 21:42 Active Consult to Case Management [CONS] Routine Cons 09/02/17 21:47 Active Consult to Public Health Technologist [CONS] Routine Cons 09/02/17 21:47 Active Consult to Physician [CONS] Routine Cons 09/02/17 21:52 Active Consult to Manager Wealth Management [CONS] Routine Cons 09/02/17 21:47 Active OT Evaluation and Treatment [CONS] Routine Cons 09/02/17 21:47 Active PT Evaluation and Treatment [CONS] Routine Cons 09/02/17 21:47 Active Heart Healthy Diet [DIET] Diet 09/02/17 Dinner Active Bone Scan 3 Phase [NM] Routine Exams 09/03/17 07:00 Ordered Chest 1V Frontal [CR] Stat Exams 09/02/17 19:10 Taken Foot Comp Min 3V Rt [CR] Stat Exams 09/02/17 19:11 Taken A1C [GLYCOSYLATED HEMOGLOBIN,HGBA1C] [CHEM] Stat Lab 09/02/17 19:00 Received BASIC METABOLIC PANEL,BMP [CHEM] AM Lab 09/03/17 05:11 Ordered BASIC METABOLIC PANEL,BMP [CHEM] AM Lab 09/04/17 05:11 Ordered BASIC METABOLIC PANEL,BMP [CHEM] AM Lab 09/05/17 05:11 Ordered BASIC METABOLIC PANEL,BMP [CHEM] AM Lab 09/06/17 05:11 Ordered C-REACTIVE PROTEIN [CHEM] AM Lab 09/03/17 05:11 Ordered C-REACTIVE PROTEIN [CHEM] AM Lab 09/04/17 05:11 Ordered C-REACTIVE PROTEIN [CHEM] AM Lab 09/05/17 05:11 Ordered C-REACTIVE PROTEIN [CHEM] AM Lab 09/06/17 05:11 Ordered C-REACTIVE PROTEIN [CHEM] AM Lab 09/07/17 05:11 Ordered CBC WITH AUTO DIFF [HEME] AM Lab 09/03/17 05:11 Ordered CBC WITH AUTO DIFF [HEME] AM Lab 09/04/17 05:11 Ordered CBC WITH AUTO DIFF [HEME] AM Lab 09/05/17 05:11 Ordered CBC WITH AUTO DIFF [HEME] AM Lab 09/06/17 05:11 Ordered CULTURE BLOOD [BC] Stat Lab 09/02/17 19:00 Received CULTURE BLOOD [BC] Stat Lab 09/02/17 19:10 Received CULTURE WOUND [RM] Routine Lab 09/02/17 21:55 Ordered MAGNESIUM [CHEM] AM Lab 09/03/17 05:11 Ordered MAGNESIUM [CHEM] AM Lab 09/04/17 05:11 Ordered MAGNESIUM [CHEM] AM Lab 09/05/17 05:11 Ordered MAGNESIUM [CHEM] AM Lab 09/06/17 05:11 Ordered MAGNESIUM [CHEM] AM Lab 09/07/17 05:11 Ordered T4 FREE [CHEM] Stat Lab 09/02/17 21:35 Ordered TSH [CHEM] Stat Lab 09/02/17 21:35 Ordered Acetaminophen [Tylenol] Med 09/02/17 21:42 Active 650 mg PO Q4H PRN Acetaminophen/HYDROcodone [[place] 325-5 MG] Med 09/02/17 21:42 Active 1 tab PO Q4H PRN Albuterol/Ipratropium [DuoNeb 3.0-0.5 MG/3 ML] Med 09/02/17 21:42 Active 3 ml NEB Q4H PRN Bisacodyl [Dulcolax] Med 09/02/17 21:42 Active 5 mg PO DAILY PRN ClonazePAM [KlonoPIN] Med 09/03/17 21:00 Active 0.5 mg PO BEDTIME Desvenlafaxine Succinate [Pristiq] Med 09/03/17 09:00 Pending 25 mg PO DAILY Docusate Sodium [Colace] Med 09/02/17 21:42 Active 100 mg PO BID PRN Docusate Sodium/Sennosides [Senna Plus] Med 09/02/17 21:42 Active 1 tab PO BID PRN HYDROmorphone [Dilaudid] Med 09/02/17 21:42 Ordered 0.5 mg IVPUSH Q2H PRN Heparin Sodium Med 09/02/17 21:45 Ordered 5,000 units SUBCUT Q8H LORazepam [Ativan] Med 09/02/17 21:42 Ordered 1 mg IV Q6H PRN LORazepam [Ativan] Med 09/02/17 21:31 Active 2 mg IVPUSH Q4H PRN Lisinopril [Prinivil] Med 09/03/17 09:00 Active 20 mg PO DAILY Lurasidone HCl [Latuda] Med 09/03/17 09:00 Pending 60 mg PO DAILY Magnesium Rep Pharmacy to Dose [Pharmacy to Dose - Med 09/02/17 21:45 Pending Magnesium Replacement] 1 dose .XX ASDIRECTED Metoclopramide [Reglan] Med 09/03/17 02:00 Active 5 mg PO Q6H Metoprolol Tartrate [Lopressor] Med 09/02/17 21:31 Active 5 mg IVPUSH Q4H PRN Ondansetron [Zofran] Med 09/02/17 21:42 Ordered 4 mg IV Q6H PRN Piperacillin/Tazobactam [Zosyn] 4.5 gm Med 09/02/17 22:00 Ordered Sodium Chloride 0.9% [Normal Saline] 100 ml IV Q8H Polyethylene Glycol 3350 [MiraLAX] Med 09/02/17 21:42 Ordered 17 gm PO DAILY PRN Potassium Chloride [Klor-Con M20] Med 09/02/17 21:45 Active 40 meq PO Q4H Potassium Rep Pharmacy to Dose [Pharmacy to Dose - Med 09/02/17 21:45 Pending Potassium Replacement] 1 dose .XX ASDIRECTED Promethazine [Phenergan] 12.5 mg Med 09/02/17 21:42 Active Sodium Chloride 0.9% [Normal Saline] 50 ml IV Q6H QUEtiapine [SEROquel] Med 09/03/17 09:00 Active 300 mg PO DAILY SUMAtriptan [Imitrex] Med 09/02/17 21:30 Active 6 mg SUBCUT DAILY PRN Saccharomyces Boulardii [Florastor] Med 09/03/17 09:00 Active 250 mg PO BID Sodium Chloride 0.9% [Normal Saline] 1,000 ml Med 09/02/17 19:15 Active IV ASDIRECTED Sucralfate [Carafate] Med 09/02/17 21:30 Active 1 gm PO Q6H PRN Temazepam [Restoril] Med 09/02/17 21:42 Active 15 mg PO BEDTIME PRN Vancomycin Med 09/02/17 21:45 Ordered 2,020.755 mg IV Q12H Vancomycin 2 gm Med 09/03/17 20:00 Active Sodium Chloride 0.9% [Normal Saline] 500 ml IV Q24H Vancomycin Pharmacy to Dose [Pharmacy to Dose - Med 09/02/17 21:45 Ordered Vancomycin] 1 dose .XX ASDIRECTED cloNIDine [Catapres] Med 09/03/17 09:00 Active 0.1 mg PO DAILY hydrALAZINE [Apresoline] Med 09/02/17 21:31 Active 20 mg IVPUSH Q4H PRN Blood Culture x2 Reflex Set [OM.PC] Stat Oth 09/02/17 19:11 Ordered Resuscitation Status Routine Resus Stat 09/02/17 21:42 Ordered Medication Orders Acetaminophen (Tylenol) 650 mg PO Q4H PRN PRN Reason: Pain (Mild 1-3)/fever Hydrocodone Bitart/Acetaminophen ([place] 325-5 Mg) 1 tab PO Q4H PRN PRN Reason: Pain (moderate 4-6) Albuterol/Ipratropium (Duoneb 3.0-0.5 Mg/3 Ml) 3 ml NEB Q4H PRN PRN Reason: Shortness Of Breath/wheezing Bisacodyl (Dulcolax) 5 mg PO DAILY PRN PRN Reason: Constipation Clonazepam (Klonopin) 0.5 mg PO BEDTIME [facility] Clonidine HCl (Catapres) 0.1 mg PO DAILY [facility] Docusate Sodium (Colace) 100 mg PO BID PRN PRN Reason: Constipation Heparin Sodium (Porcine) (Heparin Sodium) 5,000 units SUBCUT Q8H [facility] Hydralazine HCl (Apresoline) 20 mg IVPUSH Q4H PRN PRN Reason: Hypertension Hydromorphone HCl (Dilaudid) 0.5 mg IVPUSH Q2H PRN PRN Reason: Pain (severe 7-10) Sodium Chloride (Normal Saline) 1,000 mls @ 250 mls/hr IV ASDIRECTED [facility] Last Admin: 09/02/17 19:19 Dose: 250 mls/hr Promethazine HCl 12.5 mg/ (Sodium Chloride) 50.5 mls @ 100 mls/hr IV Q6H PRN PRN Reason: Nausea/Vomiting Piperacillin Sod/Tazobactam (Sod 4.5 gm/ Sodium Chloride) 100 mls @ 25 mls/hr IV Q8H [facility] Vancomycin HCl 2 gm/ Sodium (Chloride) 500 mls @ 250 mls/hr IV Q24H [facility] Lisinopril (Prinivil) 20 mg PO DAILY [facility] Lorazepam (Ativan) 2 mg IVPUSH Q4H PRN PRN Reason: Seizures Lorazepam (Ativan) 1 mg IV Q6H PRN PRN Reason: Anxiety Magnesium Sulfate (Pharmacy To Dose - Magnesium Replacement) 1 dose .XX ASDIRECTED [facility] Metoclopramide HCl (Reglan) 5 mg PO Q6H [facility] Metoprolol Tartrate (Lopressor) 5 mg IVPUSH Q4H PRN PRN Reason: Tachycardia Non-Formulary Medication (Desvenlafaxine Succinate [Pristiq]) 25 mg PO DAILY [facility] Non-Formulary Medication (Lurasidone Hcl [Latuda]) 60 mg PO DAILY [facility] Ondansetron HCl (Zofran) 4 mg IV Q6H PRN PRN Reason: Nausea/Vomiting Polyethylene Glycol (Miralax) 17 gm PO DAILY PRN PRN Reason: Constipation Potassium Chloride (Pharmacy To Dose - Potassium Replacement) 1 dose .XX ASDIRECTED [facility] Potassium Chloride (Klor-Con M20) 40 meq PO Q4H [facility] Stop: 09/03/17 01:46 Quetiapine Fumarate (Seroquel) 300 mg PO DAILY [facility] Saccharomyces Boulardii (Florastor) 250 mg PO BID [facility] Senna/Docusate Sodium (Senna Plus) 1 tab PO BID PRN PRN Reason: Constipation Sucralfate (Carafate) 1 gm PO Q6H PRN PRN Reason: Abdominal Pain Sumatriptan Succinate (Imitrex) 6 mg SUBCUT DAILY PRN PRN Reason: Headache Temazepam (Restoril) 15 mg PO BEDTIME PRN PRN Reason: Sleep Vancomycin HCl (Vancomycin) 2,020.755 mg 15 mg/kg (2020.755 mg) IV Q12H [facility] Vancomycin HCl (Pharmacy To Dose - Vancomycin) 1 dose .XX ASDIRECTED [facility] Assessment/Plan Comment:: Assessment/Plan: Acute: Sepsis 2/2 Right Non-Diabetic Foot Ulcer - Acute on chronic - Has peripheral neuropathy - Leukocytosis, Febrile Illness, Tachycardia and Elevated CRP of 37 - LA is normal - This has been going since her last back surgery; she stumps on it and it breaks her skin on - She has been trying to see a foot doctor scheduled fro tomorrow - Received IV Cleocin in ED; will start IV Vancomycin and Zosyn for pharmacy to dose - Wound culture, Bone scan in AM and GS/Podiatry consult Right Non-Diabetic Foot Ulcer - Awaiting Bone scan to r/o osteomyelitis - Treatment as above Leukocytosis - WBC 15K - 2/2 Above - Treatment as above Mild Hypokalemia - K 3.4 - Likely from inadequate intake - Replete and monitor Chronic: Impaired Vision HTN HLD Angioplasty Asthma GERD Hiatal hernia Urinary Incontinence S/p TVH DJD Talipes Cavus LBP with Sciatica S/p Surgery x2 Hx/o CVA Migraines Seizures BPD OCD PTSD Insomnia Essential Tremors Peripheral Neuropathy R>>L Morbid Obesity with BMI of 40+ Plan: Admit to [facility] with Tele Resume Home Meds Routine AM Labs IV fluids Dietary Consult for weight management Screen for DM and Hypothyroidism PT/OT consult Bone scan in AM GS/Podiatry consult SW/CM for d/c planning Additional orders as above Code status: 1
[2017-09-02] MEDS ORDERED: Piperacillin/Tazobactam 4.5 GM in Sodium Chloride 0.9% 100 ML IV ONE (22:30)
[2017-09-02] MEDS: Potassium Chloride 20 MEQ Tab.ER PO SCH (22:55)
[2017-09-02] MEDS: Heparin Sodium 5,000 Units/ML Vial SUBCUT SCH (22:56)
[2017-09-03] MEDS: Potassium Chloride 20 MEQ Tab.ER PO SCH (02:22)
[2017-09-03] MEDS: Metoclopramide 5 MG Tab PO SCH ×2 (02:22→08:03)
[2017-09-03] MEDS: Sodium Chloride 0.9% 1,000 ML IV SCH ×3 (02:23→22:01)
[2017-09-03] MEDS: Piperacillin/Tazobactam 4.5 GM in Sodium Chloride 0.9% 100 ML IV SCH ×3 (04:36→20:07)
[2017-09-03] MEDS: Acetaminophen 325 MG Tab PO PRN ×3 (06:42→20:53)
[2017-09-03] MEDS: Heparin Sodium 5,000 Units/ML Vial SUBCUT SCH ×3 (06:43→21:00)
[2017-09-03] MEDS ORDERED: Vancomycin 2 GM in Sodium Chloride 0.9% 500 ML IV SCH (08:00)
[2017-09-03] MEDS: Saccharomyces Boulardii (Probiotic) 250 MG Cap PO SCH ×2 (08:02→20:14)
[2017-09-03] MEDS: QUEtiapine 100 MG Tab PO SCH ×3 (08:02→20:10)
[2017-09-03] MEDS: Lisinopril 20 MG Tab PO SCH (08:03)
[2017-09-03] MEDS: cloNIDine 0.1 MG Tab PO SCH (08:03)
[2017-09-03] MEDS: Lurasidone Hcl [Latuda] 60 MG PO SCH (08:05)
[2017-09-03] MEDS: Desvenlafaxine Succinate [Pristiq] 25 MG PO SCH (08:05)
[2017-09-03] MEDS ORDERED: Vancomycin 1.5 GM in Sodium Chloride 0.9% 500 ML IV SCH ×2 (08:11→09:30)
--- NOTE | 2017-09-03 09:43 | PCM.PN ---
- General Info Date of Service: 09/03/17 Admission Dx/Problem (Free Text): Admission Diagnosis/Problem Admission Diagnosis/Problem Acute febrile illness Subjective Update: Follow Up Functional Status: Reports: Pain Controlled, Tolerating Diet, Ambulating, Urinating, New Symptoms Pain Score: 5 - Review of Systems General: Denies: Fever, Weakness, Fatigue, Malaise HEENT: Reports: No Symptoms Pulmonary: Denies: Shortness of Breath Cardiovascular: Denies: Chest Pain, Palpitations, Lightheadedness Gastrointestinal: Reports: Other (GERD). Denies: Abdominal Pain, Nausea, Vomiting Genitourinary: Reports: No Symptoms Musculoskeletal: Reports: Leg Pain (right posterior thigh but now higher or close to her gluteal ) Skin: Reports: Bruising Neurological: Reports: Weakness, Gait Disturbance. Denies: Confusion, Pre- Existing Deficit, Trouble Speaking, Difficulty Walking, Change in Speech Psychiatric: Denies: Depression, Anxiety, Agitation, Hallucinations Systems Review Comment:: Patient did not sleep good last night due to beeping noise from the IV machine. She reports having an episode of pyrosis this AM but improved with anti-acids. This is not new to her and she has had EGD x3 in the past. Her most recent eval was not too long ago in [place]. Her pain is controlled at 5/10 but her pain seemed to have moved up a little higher or closer to her right gluteal region. She has been afebrile and w/o leukocytosis this AM. However her blood culture came back pos for GNR x 2 with a UA suggestive of UTI. Patient appears comfortable and in no acute distress. - Patient Data Vitals - Most Recent: Last Vital Signs Temp 36.8 C 09/03/17 06:42 Pulse 97 09/03/17 04:41 Resp 18 09/03/17 04:41 BP 133/83 09/03/17 08:03 Pulse Ox 99 09/03/17 04:41 Weight - Most Recent: 140.659 kg I&O - Last 24 Hours: Intake & Output 09/02/17 09/03/17 09/03/17 22:59 06:59 14:59 Intake Total 1880 Output Total 1200 Balance 680 Lab Results Last 24 Hours: Laboratory Results - last 24 hr 09/02/17 09/02/17 09/02/17 Range/Units 19:00 19:00 19:00 WBC 15.53 H (3.98-10.04) K/mm3 RBC 4.23 (3.98-5.22) M/mm3 Hgb 11.6 (11.2-15.7) gm/L Hct 36.0 (34.1-44.9) % MCV 85.1 (79.4-94.8) fl MCH 27.4 (25.6-32.2) pg MCHC 32.2 (32.2-35.5) g/dl RDW Std Deviation 44.0 (36.4-46.3) fL Plt Count 221 (182-369) K/mm3 MPV 11.0 (9.4-12.3) fl Neut % (Auto) (34.0-71.1) % Lymph % (Auto) (19.3-51.7) % [place] % (Auto) (4.7-12.5) % Eos % (Auto) (0.7-5.8) Baso % (Auto) (0.1-1.2) % Neut # (Auto) (1.56-6.13) K/mm3 Lymph # (Auto) (1.18-3.74) K/mm3 [place] # (Auto) (0.24-0.36) K/mm3 Eos # (Auto) (0.04-0.36) K/mm3 Baso # (Auto) (0.01-0.08) K/mm3 Neutrophils % (Manual) 91 H (40-60) % Band Neutrophils % 0 (0-10) % Lymphocytes % (Manual) 5 L (20-40) % Atypical Lymphs % 0 % Monocytes % (Manual) 4 (2-10) % Eosinophils % (Manual) 0 L (0.7-5.8) % Basophils % (Manual) 0 L (0.1-1.2) Platelet Estimate Adequate Plt Morphology Comment Normal RBC Morph Comment Normal ESR (0-20) mm/hr Sodium 137 (136-145) mEq/L Potassium 3.4 L (3.5-5.1) mEq/L Chloride 101 (98-107) mEq/L Carbon Dioxide 25 (21-32) mEq/L Anion Gap 14.4 (5-15) BUN 25 H (7-18) mg/dL Creatinine 1.8 H (0.55-1.02) mg/dL Est Cr Clr Drug Dosing 40.40 mL/min Estimated GFR (MDRD) 29 (>60) mL/min BUN/Creatinine Ratio 13.9 L (14-18) Glucose 142 H (74-106) mg/dL Hemoglobin A1c (4.50-6.20) % Lactic Acid 0.9 (0.4-2.0) mmol/L Calcium 8.5 (8.5-10.1) mg/dL Magnesium 2.1 (1.8-2.4) mg/dl Total Bilirubin 0.6 (0.2-1.0) mg/dL AST 32 (15-37) U/L ALT 41 (14-59) U/L Alkaline Phosphatase 238 H (46-116) U/L Creatine Kinase 133 (26-192) U/L C-Reactive Protein 37.1 H* (<1.0) mg/dL NT-Pro-B Natriuret Pep (0-125) pg/mL Total Protein 7.9 (6.4-8.2) g/dl Albumin 2.9 L (3.4-5.0) g/dl Globulin 5.0 gm/dL Albumin/Globulin Ratio 0.6 L (1-2) Triglycerides (<150) mg/dL Cholesterol (<200) mg/dL LDL Cholesterol Direct (<100) mg/dL HDL Cholesterol (40-59) mg/dL Free T4 (0.76-1.46) ng/dL TSH 3rd Generation (0.358-3.74) uIU/mL Urine Color (Yellow) Urine Appearance (Clear) Urine pH (5.0-8.0) Ur Specific [place] (1.005-1.030) Urine Protein (Negative) Urine Glucose (UA) (Negative) Urine Ketones (Negative) Urine Occult Blood (Negative) Urine Nitrite (Negative) Urine Bilirubin (Negative) Urine Urobilinogen (0.2-1.0) Ur Leukocyte Esterase (Negative) Urine RBC (0-5) /hpf Urine WBC (0-5) /hpf Urine WBC Clumps (NOT SEEN) /hpf Ur Epithelial Cells (0-5) /hpf Urine Bacteria (FEW) /hpf Fine Granular Casts (0-5) /lpf Urine Mucus (FEW) /hpf 09/02/17 09/02/17 09/02/17 Range/Units 19:00 19:00 19:00 WBC (3.98-10.04) K/mm3 RBC (3.98-5.22) M/mm3 Hgb (11.2-15.7) gm/L Hct (34.1-44.9) % MCV (79.4-94.8) fl MCH (25.6-32.2) pg MCHC (32.2-35.5) g/dl RDW Std Deviation (36.4-46.3) fL Plt Count (182-369) K/mm3 MPV (9.4-12.3) fl Neut % (Auto) (34.0-71.1) % Lymph % (Auto) (19.3-51.7) % [place] % (Auto) (4.7-12.5) % Eos % (Auto) (0.7-5.8) Baso % (Auto) (0.1-1.2) % Neut # (Auto) (1.56-6.13) K/mm3 Lymph # (Auto) (1.18-3.74) K/mm3 [place] # (Auto) (0.24-0.36) K/mm3 Eos # (Auto) (0.04-0.36) K/mm3 Baso # (Auto) (0.01-0.08) K/mm3 Neutrophils % (Manual) (40-60) % Band Neutrophils % (0-10) % Lymphocytes % (Manual) (20-40) % Atypical Lymphs % % Monocytes % (Manual) (2-10) % Eosinophils % (Manual) (0.7-5.8) % Basophils % (Manual) (0.1-1.2) Platelet Estimate Plt Morphology Comment RBC Morph Comment ESR 103 H (0-20) mm/hr Sodium (136-145) mEq/L Potassium (3.5-5.1) mEq/L Chloride (98-107) mEq/L Carbon Dioxide (21-32) mEq/L Anion Gap (5-15) BUN (7-18) mg/dL Creatinine (0.55-1.02) mg/dL Est Cr Clr Drug Dosing mL/min Estimated GFR (MDRD) (>60) mL/min BUN/Creatinine Ratio (14-18) Glucose (74-106) mg/dL Hemoglobin A1c (4.50-6.20) % Lactic Acid (0.4-2.0) mmol/L Calcium (8.5-10.1) mg/dL Magnesium (1.8-2.4) mg/dl Total Bilirubin (0.2-1.0) mg/dL AST (15-37) U/L ALT (14-59) U/L Alkaline Phosphatase (46-116) U/L Creatine Kinase (26-192) U/L C-Reactive Protein (<1.0) mg/dL NT-Pro-B Natriuret Pep 200 H (0-125) pg/mL Total Protein (6.4-8.2) g/dl Albumin (3.4-5.0) g/dl Globulin gm/dL Albumin/Globulin Ratio (1-2) Triglycerides (<150) mg/dL Cholesterol (<200) mg/dL LDL Cholesterol Direct (<100) mg/dL HDL Cholesterol (40-59) mg/dL Free T4 0.85 (0.76-1.46) ng/dL TSH 3rd Generation 1.968 (0.358-3.74) uIU/mL Urine Color (Yellow) Urine Appearance (Clear) Urine pH (5.0-8.0) Ur Specific [place] (1.005-1.030) Urine Protein (Negative) Urine Glucose (UA) (Negative) Urine Ketones (Negative) Urine Occult Blood (Negative) Urine Nitrite (Negative) Urine Bilirubin (Negative) Urine Urobilinogen (0.2-1.0) Ur Leukocyte Esterase (Negative) Urine RBC (0-5) /hpf Urine WBC (0-5) /hpf Urine WBC Clumps (NOT SEEN) /hpf Ur Epithelial Cells (0-5) /hpf Urine Bacteria (FEW) /hpf Fine Granular Casts (0-5) /lpf Urine Mucus (FEW) /hpf 09/02/17 09/02/17 09/03/17 Range/Units 19:00 22:40 06:05 WBC 9.92 (3.98-10.04) K/mm3 RBC 4.07 (3.98-5.22) M/mm3 Hgb 11.1 L (11.2-15.7) gm/L Hct 34.9 (34.1-44.9) % MCV 85.7 (79.4-94.8) fl MCH 27.3 (25.6-32.2) pg MCHC 31.8 L (32.2-35.5) g/dl RDW Std Deviation 44.9 (36.4-46.3) fL Plt Count 196 (182-369) K/mm3 MPV 11.0 (9.4-12.3) fl Neut % (Auto) 82.2 H (34.0-71.1) % Lymph % (Auto) 10.6 L (19.3-51.7) % [place] % (Auto) 5.1 (4.7-12.5) % Eos % (Auto) 1.8 (0.7-5.8) Baso % (Auto) 0.1 (0.1-1.2) % Neut # (Auto) 8.15 H (1.56-6.13) K/mm3 Lymph # (Auto) 1.05 L (1.18-3.74) K/mm3 [place] # (Auto) 0.51 H (0.24-0.36) K/mm3 Eos # (Auto) 0.18 (0.04-0.36) K/mm3 Baso # (Auto) 0.01 (0.01-0.08) K/mm3 Neutrophils % (Manual) (40-60) % Band Neutrophils % (0-10) % Lymphocytes % (Manual) (20-40) % Atypical Lymphs % % Monocytes % (Manual) (2-10) % Eosinophils % (Manual) (0.7-5.8) % Basophils % (Manual) (0.1-1.2) Platelet Estimate Plt Morphology Comment RBC Morph Comment ESR (0-20) mm/hr Sodium (136-145) mEq/L Potassium (3.5-5.1) mEq/L Chloride (98-107) mEq/L Carbon Dioxide (21-32) mEq/L Anion Gap (5-15) BUN (7-18) mg/dL Creatinine (0.55-1.02) mg/dL Est Cr Clr Drug Dosing mL/min Estimated GFR (MDRD) (>60) mL/min BUN/Creatinine Ratio (14-18) Glucose (74-106) mg/dL Hemoglobin A1c 5.50 (4.50-6.20) % Lactic Acid (0.4-2.0) mmol/L Calcium (8.5-10.1) mg/dL Magnesium (1.8-2.4) mg/dl Total Bilirubin (0.2-1.0) mg/dL AST (15-37) U/L ALT (14-59) U/L Alkaline Phosphatase (46-116) U/L Creatine Kinase (26-192) U/L C-Reactive Protein (<1.0) mg/dL NT-Pro-B Natriuret Pep (0-125) pg/mL Total Protein (6.4-8.2) g/dl Albumin (3.4-5.0) g/dl Globulin gm/dL Albumin/Globulin Ratio (1-2) Triglycerides (<150) mg/dL Cholesterol (<200) mg/dL LDL Cholesterol Direct (<100) mg/dL HDL Cholesterol (40-59) mg/dL Free T4 (0.76-1.46) ng/dL TSH 3rd Generation (0.358-3.74) uIU/mL Urine Color Yellow (Yellow) Urine Appearance Clear (Clear) Urine pH 6.5 (5.0-8.0) Ur Specific [place] 1.020 (1.005-1.030) Urine Protein 2+ H (Negative) Urine Glucose (UA) Negative (Negative) Urine Ketones Negative (Negative) Urine Occult Blood 1+ H (Negative) Urine Nitrite Positive H (Negative) Urine Bilirubin Negative (Negative) Urine Urobilinogen 1.0 (0.2-1.0) Ur Leukocyte Esterase 2+ H (Negative) Urine RBC 0-5 (0-5) /hpf Urine WBC 10-20 H (0-5) /hpf Urine WBC Clumps Few (NOT SEEN) /hpf Ur Epithelial Cells 0-5 (0-5) /hpf Urine Bacteria Moderate H (FEW) /hpf Fine Granular Casts 0-5 (0-5) /lpf Urine Mucus Not seen (FEW) /hpf 09/03/17 Range/Units 06:05 WBC (3.98-10.04) K/mm3 RBC (3.98-5.22) M/mm3 Hgb (11.2-15.7) gm/L Hct (34.1-44.9) % MCV (79.4-94.8) fl MCH (25.6-32.2) pg MCHC (32.2-35.5) g/dl RDW Std Deviation (36.4-46.3) fL Plt Count (182-369) K/mm3 MPV (9.4-12.3) fl Neut % (Auto) (34.0-71.1) % Lymph % (Auto) (19.3-51.7) % [place] % (Auto) (4.7-12.5) % Eos % (Auto) (0.7-5.8) Baso % (Auto) (0.1-1.2) % Neut # (Auto) (1.56-6.13) K/mm3 Lymph # (Auto) (1.18-3.74) K/mm3 [place] # (Auto) (0.24-0.36) K/mm3 Eos # (Auto) (0.04-0.36) K/mm3 Baso # (Auto) (0.01-0.08) K/mm3 Neutrophils % (Manual) (40-60) % Band Neutrophils % (0-10) % Lymphocytes % (Manual) (20-40) % Atypical Lymphs % % Monocytes % (Manual) (2-10) % Eosinophils % (Manual) (0.7-5.8) % Basophils % (Manual) (0.1-1.2) Platelet Estimate Plt Morphology Comment RBC Morph Comment ESR (0-20) mm/hr Sodium 142 (136-145) mEq/L Potassium 3.5 (3.5-5.1) mEq/L Chloride 108 H (98-107) mEq/L Carbon Dioxide 25 (21-32) mEq/L Anion Gap 12.5 (5-15) BUN 22 H (7-18) mg/dL Creatinine 1.6 H (0.55-1.02) mg/dL Est Cr Clr Drug Dosing 45.45 mL/min Estimated GFR (MDRD) 34 (>60) mL/min BUN/Creatinine Ratio 13.8 L (14-18) Glucose 104 (74-106) mg/dL Hemoglobin A1c (4.50-6.20) % Lactic Acid (0.4-2.0) mmol/L Calcium 7.8 L (8.5-10.1) mg/dL Magnesium 2.3 (1.8-2.4) mg/dl Total Bilirubin (0.2-1.0) mg/dL AST (15-37) U/L ALT (14-59) U/L Alkaline Phosphatase (46-116) U/L Creatine Kinase (26-192) U/L C-Reactive Protein 30.9 H* (<1.0) mg/dL NT-Pro-B Natriuret Pep (0-125) pg/mL Total Protein (6.4-8.2) g/dl Albumin (3.4-5.0) g/dl Globulin gm/dL Albumin/Globulin Ratio (1-2) Triglycerides 77 (<150) mg/dL Cholesterol 151 (<200) mg/dL LDL Cholesterol Direct 79 (<100) mg/dL HDL Cholesterol 49.0 (40-59) mg/dL Free T4 (0.76-1.46) ng/dL TSH 3rd Generation (0.358-3.74) uIU/mL Urine Color (Yellow) Urine Appearance (Clear) Urine pH (5.0-8.0) Ur Specific [place] (1.005-1.030) Urine Protein (Negative) Urine Glucose (UA) (Negative) Urine Ketones (Negative) Urine Occult Blood (Negative) Urine Nitrite (Negative) Urine Bilirubin (Negative) Urine Urobilinogen (0.2-1.0) Ur Leukocyte Esterase (Negative) Urine RBC (0-5) /hpf Urine WBC (0-5) /hpf Urine WBC Clumps (NOT SEEN) /hpf Ur Epithelial Cells (0-5) /hpf Urine Bacteria (FEW) /hpf Fine Granular Casts (0-5) /lpf Urine Mucus (FEW) /hpf [place] Results Last 24 Hours: Microbiology 09/02/17 19:00 Anaerobic Blood Culture - Preliminary Blood - Venous Gram Negative Rods 09/02/17 19:10 Anaerobic Blood Culture - Preliminary Blood - Venous - Lab Draw Gram Negative Rods Med Orders - Current: Current Medications Acetaminophen (Tylenol) 650 mg PO Q4H PRN PRN Reason: Pain (Mild 1-3)/fever Last Admin: 09/03/17 06:42 Dose: 650 mg Hydrocodone Bitart/Acetaminophen ([place] 325-5 Mg) 1 tab PO Q4H PRN PRN Reason: Pain (moderate 4-6) Al Hydroxide/Mg Hydroxide (Mag-Al Plus) 30 ml PO Q4H PRN PRN Reason: Heartburn Albuterol/Ipratropium (Duoneb 3.0-0.5 Mg/3 Ml) 3 ml NEB Q4H PRN PRN Reason: Shortness Of Breath/wheezing Bisacodyl (Dulcolax) 5 mg PO DAILY PRN PRN Reason: Constipation Clonazepam (Klonopin) 0.5 mg PO BEDTIME [facility] Clonidine HCl (Catapres) 0.1 mg PO DAILY [facility] Last Admin: 09/03/17 08:03 Dose: 0.1 mg Docusate Sodium (Colace) 100 mg PO BID PRN PRN Reason: Constipation Heparin Sodium (Porcine) (Heparin Sodium) 5,000 units SUBCUT Q8H [facility] Last Admin: 09/03/17 06:43 Dose: 5,000 units Hydralazine HCl (Apresoline) 20 mg IVPUSH Q4H PRN PRN Reason: Hypertension Hydromorphone HCl (Dilaudid) 0.5 mg IVPUSH Q2H PRN PRN Reason: Pain (severe 7-10) Promethazine HCl 12.5 mg/ (Sodium Chloride) 50.5 mls @ 100 mls/hr IV Q6H PRN PRN Reason: Nausea/Vomiting Piperacillin Sod/Tazobactam (Sod 4.5 gm/ Sodium Chloride) 100 mls @ 25 mls/hr IV Q8H [facility] Last Admin: 09/03/17 04:36 Dose: 25 mls/hr Vancomycin HCl 1.5 gm/ Sodium (Chloride) 500 mls @ 250 mls/hr IV Q12H [facility] Sodium Chloride (Normal Saline) 1,000 mls @ 150 mls/hr IV ASDIRECTED [facility] Lisinopril (Prinivil) 20 mg PO DAILY [facility] Last Admin: 09/03/17 08:03 Dose: 20 mg Lorazepam (Ativan) 2 mg IVPUSH Q4H PRN PRN Reason: Seizures Lorazepam (Ativan) 1 mg IV Q6H PRN PRN Reason: Anxiety Magnesium Sulfate (Pharmacy To Dose - Magnesium Replacement) 1 dose .XX ASDIRECTED [facility] Metoclopramide HCl (Reglan) 5 mg PO Q6H [facility] Last Admin: 09/03/17 08:03 Dose: 5 mg Metoprolol Tartrate (Lopressor) 5 mg IVPUSH Q4H PRN PRN Reason: Tachycardia Ondansetron HCl (Zofran) 4 mg IV Q6H PRN PRN Reason: Nausea/Vomiting Desvenlafaxine Succinate [Pristiq] 25 Mg 0 each PO DAILY [facility] Last Admin: 09/03/17 08:05 Dose: Not Given Lurasidone Hcl [ (Latuda] 60 Mg) 0 each PO DAILY [facility] Last Admin: 09/03/17 08:05 Dose: Not Given Polyethylene Glycol (Miralax) 17 gm PO DAILY PRN PRN Reason: Constipation Potassium Chloride (Pharmacy To Dose - Potassium Replacement) 1 dose .XX ASDIRECTED [facility] Quetiapine Fumarate (Seroquel) 300 mg PO BEDTIME [facility] Saccharomyces Boulardii (Florastor) 250 mg PO BID [facility] Last Admin: 09/03/17 08:02 Dose: 250 mg Senna/Docusate Sodium (Senna Plus) 1 tab PO BID PRN PRN Reason: Constipation Sucralfate (Carafate) 1 gm PO Q6H PRN PRN Reason: Abdominal Pain Last Admin: 09/03/17 04:55 Dose: 1 gm Sumatriptan Succinate (Imitrex) 6 mg SUBCUT DAILY PRN PRN Reason: Headache Temazepam (Restoril) 15 mg PO BEDTIME PRN PRN Reason: Sleep Vancomycin HCl (Pharmacy To Dose - Vancomycin) 1 dose .XX ASDIRECTED [facility] Discontinued Medications Acetaminophen (Tylenol) 975 mg PO NOW ONE Stop: 09/02/17 21:20 Last Admin: 09/02/17 21:26 Dose: 975 mg Al Hydroxide/Mg Hydroxide 30 (ml/ Lidocaine HCl 15 ml) 0 ml PO ONETIME ONE Stop: 09/02/17 20:27 Last Admin: 09/02/17 20:29 Dose: 45 ml Hydromorphone HCl (Dilaudid) 0.5 mg IVPUSH ONETIME ONE Stop: 09/02/17 20:49 Last Admin: 09/02/17 21:11 Dose: 0.5 mg Sodium Chloride (Normal Saline) 1,000 mls @ 250 mls/hr IV ASDIRECTED [facility] Last Admin: 09/03/17 02:23 Dose: 250 mls/hr Clindamycin Phosphate 900 mg/ (Sodium Chloride) 106 mls @ 100 mls/hr IV ONETIME ONE Stop: 09/02/17 20:36 Last Admin: 09/02/17 20:02 Dose: 100 mls/hr Vancomycin HCl 2 gm/ Sodium (Chloride) 250 mls @ 250 mls/hr IV ONETIME ONE Stop: 09/02/17 20:33 Last Admin: 09/02/17 20:04 Dose: 250 mls/hr Vancomycin HCl 2 gm/ Sodium (Chloride) 500 mls @ 250 mls/hr IV Q12H [facility] Last Admin: 09/03/17 08:58 Dose: Not Given Piperacillin Sod/Tazobactam (Sod 4.5 gm/ Sodium Chloride) 100 mls @ 200 mls/hr IV ONETIME ONE Stop: 09/02/17 22:59 Last Admin: 09/02/17 22:57 Dose: 200 mls/hr Vancomycin HCl 1.5 gm/ Sodium (Chloride) 500 mls @ 250 mls/hr IV Q12H [facility] Ibuprofen (Motrin) 800 mg PO ONETIME ONE Stop: 09/02/17 19:14 Last Admin: 09/02/17 19:20 Dose: 800 mg Metoclopramide HCl (Reglan) 10 mg IVPUSH ONETIME ONE Stop: 09/02/17 20:50 Last Admin: 09/02/17 21:09 Dose: 10 mg Potassium Chloride (Klor-Con M20) 40 meq PO Q4H [facility] Stop: 09/03/17 01:46 Last Admin: 09/03/17 02:22 Dose: 40 meq Quetiapine Fumarate (Seroquel) 300 mg PO DAILY [facility] Last Admin: 09/03/17 08:06 Dose: Not Given Vancomycin HCl (Vancomycin) 2,020.755 mg 15 mg/kg (2020.755 mg) IV Q12H [facility] Last Admin: 09/03/17 08:58 Dose: Not Given - Exam General: Alert, Oriented, Cooperative, No Acute Distress, Other (Morbidly Obse) HEENT: Pupils Equal, Pupils Reactive, EOMI, Mucous Membr. 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 No: Erythema Neurological: No New Focal Deficit, Other (Baseline bilateral peripheral neuropathy). No: Normal Gait Psy/Mental Status: Alert, Normal Affect, Normal Mood - Problem List Review Problem List Initiated/Reviewed/Updated: Yes - My Orders Last 24 Hours: My Active Orders 09/02/17 21:30 SUMAtriptan [Imitrex] 6 mg SUBCUT DAILY PRN Sucralfate [Carafate] 1 gm PO Q6H PRN 09/02/17 21:31 LORazepam [Ativan] 2 mg IVPUSH Q4H PRN Metoprolol Tartrate [Lopressor] 5 mg IVPUSH Q4H PRN hydrALAZINE [Apresoline] 20 mg IVPUSH Q4H PRN 09/02/17 21:42 Height and Weight [RC] 04 Oxygen Therapy [RC] PRN Up With Assistance [RC] ASDIRECTED Up to Chair [RC] ASDIRECTED VTE/DVT Education [RC] DAILY Vital Signs [RC] Q4HR Acetaminophen [Tylenol] 650 mg PO Q4H PRN Acetaminophen/HYDROcodone [[place] 325-5 MG] 1 tab PO Q4H PRN Albuterol/Ipratropium [DuoNeb 3.0-0.5 MG/3 ML] 3 ml NEB Q4H PRN Bisacodyl [Dulcolax] 5 mg PO DAILY PRN Docusate Sodium [Colace] 100 mg PO BID PRN Docusate Sodium/Sennosides [Senna Plus] 1 tab PO BID PRN HYDROmorphone [Dilaudid] 0.5 mg IVPUSH Q2H PRN LORazepam [Ativan] 1 mg IV Q6H PRN Ondansetron [Zofran] 4 mg IV Q6H PRN Polyethylene Glycol 3350 [MiraLAX] 17 gm PO DAILY PRN Promethazine [Phenergan] 12.5 mg Sodium Chloride 0.9% [Normal Saline] 50 ml IV Q6H Temazepam [Restoril] 15 mg PO BEDTIME PRN Resuscitation Status Routine 09/02/17 21:43 Intake and Output [RC] 04,16 09/02/17 21:45 Magnesium Rep Pharmacy to Dose [Pharmacy to Dose - Magnesium Replacement] 1 dose .XX ASDIRECTED Potassium Rep Pharmacy to Dose [Pharmacy to Dose - Potassium Replacement] 1 dose .XX ASDIRECTED Vancomycin Pharmacy to Dose [Pharmacy to Dose - Vancomycin] 1 dose .XX ASDIRECTED 09/02/17 21:46 RT Aerosol Therapy [RC] ASDIRECTED 09/02/17 21:47 Consult to Case Management [CONS] Routine Consult to [employer] [CONS] Routine Consult to Product Specialist [CONS] Routine OT Evaluation and Treatment [CONS] Routine PT Evaluation and Treatment [CONS] Routine 09/02/17 21:52 Consult to Physician [CONS] Routine 09/02/17 21:53 Notify Provider Consults [RC] ASDIRECTED 09/02/17 22:00 Heparin Sodium 5,000 units SUBCUT Q8H 09/02/17 22:40 CULTURE URINE [RM] Routine UA W/MICROSCOPIC [URIN] Routine 09/02/17 22:50 CULTURE WOUND [RM] Routine 09/02/17 Dinner Heart Healthy Diet [DIET] 09/03/17 02:00 Metoclopramide [Reglan] 5 mg PO Q6H 09/03/17 04:00 Piperacillin/Tazobactam [Zosyn] 4.5 gm Sodium Chloride 0.9% [Normal Saline] 100 ml IV Q8H 09/03/17 06:05 Alum Hydrox/Mag Hydrox/Simeth [Mag-Al Plus] 30 ml PO Q4H PRN 09/03/17 07:00 Bone Scan 3 Phase [NM] Routine 09/03/17 08:30 Sodium Chloride 0.9% [Normal Saline] 1,000 ml IV ASDIRECTED 09/03/17 09:00 Lisinopril [Prinivil] 20 mg PO DAILY Patient's Own Medication [Ptom] 0 each PO DAILY Patient's Own Medication [Ptom] 0 each PO DAILY Saccharomyces Boulardii [Florastor] 250 mg PO BID cloNIDine [Catapres] 0.1 mg PO DAILY 09/03/17 09:21 CULTURE URINE [RM] Stat 09/03/17 09:30 Vancomycin 1.5 gm Sodium Chloride 0.9% [Normal Saline] 500 ml IV Q12H 09/03/17 21:00 ClonazePAM [KlonoPIN] 0.5 mg PO BEDTIME QUEtiapine [SEROquel] 300 mg PO BEDTIME 09/04/17 05:11 BASIC METABOLIC PANEL,BMP [CHEM] AM C-REACTIVE PROTEIN [CHEM] AM CBC WITH AUTO DIFF [HEME] AM MAGNESIUM [CHEM] AM 09/05/17 05:11 BASIC METABOLIC PANEL,BMP [CHEM] AM C-REACTIVE PROTEIN [CHEM] AM CBC WITH AUTO DIFF [HEME] AM MAGNESIUM [CHEM] AM 09/06/17 05:11 BASIC METABOLIC PANEL,BMP [CHEM] AM C-REACTIVE PROTEIN [CHEM] AM CBC WITH AUTO DIFF [HEME] AM MAGNESIUM [CHEM] AM 09/07/17 05:11 C-REACTIVE PROTEIN [CHEM] AM MAGNESIUM [CHEM] AM - Plan Plan:: Assessment/Plan: Acute: GNR Bacteremia - 2/2 Right Non-Diabetic Foot Ulcer vs UTI (More likely more UTI than Foot Ulcer) - Has peripheral neuropathy and UA is pos for UTI - Now afebrile w/o leukocytosis - CRP of 37--> now 30.9 - This has been going since her last back surgery; she stumps on it and it breaks her skin on - She has been trying to see a foot doctor scheduled for tomorrow - Received IV Cleocin in ED - Consider discontinuing IV Vancomycin - Continue IV Zosyn for pharmacy to dose for now until further evaluation by Dr. Kaur/Pelon - Wound culture, Bone scan in AM and GS/Podiatry consult Right Non-Diabetic Foot Ulcer - Awaiting Bone scan to r/o osteomyelitis scheduled to AM - Treatment as above Acute Renal Injury/Renal Insufficiency - Baseline GFR is 43 (Stage 3 08/26/2017);now 29 - BUN 25 and CR 1.8 - Had recent GI loss form nausea and vomiting Resolved: S/p Leukocytosis - WBC 15K - 2/2 Above - Treatment as above S/p Mild Hypokalemia - K 3.4--> 3.5 - Likely from inadequate intake - Replete and monitor Chronic: Impaired Vision HTN HLD, Lipid Panel:within normal limits Angioplasty Asthma GERD Hiatal hernia Urinary Incontinence S/p TVH DJD Talipes Cavus LBP with Sciatica S/p Surgery x2 Hx/o CVA Migraines Seizures BPD OCD PTSD Insomnia Essential Tremors Peripheral Neuropathy R>>L Morbid Obesity with BMI of 40+ Plan: She appears clinically better this morning Continue current treatment Routine AM Labs Thyroid panel- within normal limits A1C is 5.50 Continue PT/OT consult Bone scan to be completed today GS/Podiatry consult SW/CM for d/c planning Additional orders as above Code status: 1
--- NOTE | 2017-09-03 12:38 | PCM.PREANE ---
Preanesthetic Assessment - Anesthesia/Transfusion/Family Hx Anesthesia History: Prior Anesthesia Without Reaction Transfusion History: No Prior Transfusion(s) Intubation History: Unknown - Review of Systems General: Weakness, Fatigue, Malaise Pulmonary: No Symptoms (Asthma) Cardiovascular: No Symptoms (History of MA/angioplasty/HTN) Gastrointestinal: No Symptoms (GERD) Neurological: Headache (Migraines), Numbness (peripheral neuropathy resulting from past lumbar surgery), Seizure (Last seizure noted in 2014/CVA times two within past year (2016)), Tingling (Right lower back pain with sciatica/2002 lumbar spine surgery resulting in chronic spasticity) Other: Reports: Depression, Anxiety - Physical Assessment NPO Status Date: 09/02/17 Pulse: 97 O2 Sat by Pulse Oximetry: 99 Respiratory Rate: 18 Blood Pressure: 133/83 Temperature: 36.8 C Vital Signs: Last Vital Signs Temp 38.5 C H 09/03/17 20:53 Pulse 97 09/03/17 12:40 Resp 18 09/03/17 12:40 BP 133/83 09/03/17 12:40 Pulse Ox 99 09/03/17 12:40 Height: 1.8 m Weight: 140.659 kg ASA Class: 3E Mental Status: Alert & Oriented x3 - Lab Values: Laboratory Last Values WBC 9.92 K/mm3 (3.98-10.04) 09/03/17 06:05 RBC 4.07 M/mm3 (3.98-5.22) 09/03/17 06:05 Hgb 11.1 gm/L (11.2-15.7) L 09/03/17 06:05 Hct 34.9 % (34.1-44.9) 09/03/17 06:05 MCV 85.7 fl (79.4-94.8) 09/03/17 06:05 MCH 27.3 pg (25.6-32.2) 09/03/17 06:05 MCHC 31.8 g/dl (32.2-35.5) L 09/03/17 06:05 RDW Std Deviation 44.9 fL (36.4-46.3) 09/03/17 06:05 Plt Count 196 K/mm3 (182-369) 09/03/17 06:05 MPV 11.0 fl (9.4-12.3) 09/03/17 06:05 Neut % (Auto) 82.2 % (34.0-71.1) H 09/03/17 06:05 Lymph % (Auto) 10.6 % (19.3-51.7) L 09/03/17 06:05 Branch % (Auto) 5.1 % (4.7-12.5) 09/03/17 06:05 Eos % (Auto) 1.8 (0.7-5.8) 09/03/17 06:05 Baso % (Auto) 0.1 % (0.1-1.2) 09/03/17 06:05 Neut # (Auto) 8.15 K/mm3 (1.56-6.13) H 09/03/17 06:05 Lymph # (Auto) 1.05 K/mm3 (1.18-3.74) L 09/03/17 06:05 Branch # (Auto) 0.51 K/mm3 (0.24-0.36) H 09/03/17 06:05 Eos # (Auto) 0.18 K/mm3 (0.04-0.36) 09/03/17 06:05 Baso # (Auto) 0.01 K/mm3 (0.01-0.08) 09/03/17 06:05 Neutrophils % (Manual) 91 % (40-60) H 09/02/17 19:00 Band Neutrophils % 0 % (0-10) 09/02/17 19:00 Lymphocytes % (Manual) 5 % (20-40) L 09/02/17 19:00 Atypical Lymphs % 0 % 09/02/17 19:00 Monocytes % (Manual) 4 % (2-10) 09/02/17 19:00 Eosinophils % (Manual) 0 % (0.7-5.8) L 09/02/17 19:00 Basophils % (Manual) 0 (0.1-1.2) L 09/02/17 19:00 Platelet Estimate Adequate 09/02/17 19:00 Plt Morphology Comment Normal 09/02/17 19:00 RBC Morph Comment Normal 09/02/17 19:00 ESR 103 mm/hr (0-20) H 09/02/17 19:00 Sodium 142 mEq/L (136-145) 09/03/17 06:05 Potassium 3.5 mEq/L (3.5-5.1) 09/03/17 06:05 Chloride 108 mEq/L (98-107) H 09/03/17 06:05 Carbon Dioxide 25 mEq/L (21-32) 09/03/17 06:05 Anion Gap 12.5 (5-15) 09/03/17 06:05 BUN 22 mg/dL (7-18) H 09/03/17 06:05 Creatinine 1.6 mg/dL (0.55-1.02) H 09/03/17 06:05 Est Cr Clr Drug Dosing 45.45 mL/min 09/03/17 06:05 Estimated GFR (MDRD) 34 mL/min (>60) 09/03/17 06:05 BUN/Creatinine Ratio 13.8 (14-18) L 09/03/17 06:05 Glucose 104 mg/dL (74-106) 09/03/17 06:05 Hemoglobin A1c 5.50 % (4.50-6.20) 09/02/17 19:00 Lactic Acid 0.9 mmol/L (0.4-2.0) 09/02/17 19:00 Calcium 7.8 mg/dL (8.5-10.1) L 09/03/17 06:05 Magnesium 2.3 mg/dl (1.8-2.4) 09/03/17 06:05 Total Bilirubin 0.6 mg/dL (0.2-1.0) 09/02/17 19:00 AST 32 U/L (15-37) 09/02/17 19:00 ALT 41 U/L (14-59) 09/02/17 19:00 Alkaline Phosphatase 238 U/L (46-116) H 09/02/17 19:00 Creatine Kinase 133 U/L (26-192) 09/02/17 19:00 C-Reactive Protein 30.9 mg/dL (<1.0) H* 09/03/17 06:05 NT-Pro-B Natriuret Pep 200 pg/mL (0-125) H 09/02/17 19:00 Total Protein 7.9 g/dl (6.4-8.2) 09/02/17 19:00 Albumin 2.9 g/dl (3.4-5.0) L 09/02/17 19:00 Globulin 5.0 gm/dL 09/02/17 19:00 Albumin/Globulin Ratio 0.6 (1-2) L 09/02/17 19:00 Triglycerides 77 mg/dL (<150) 09/03/17 06:05 Cholesterol 151 mg/dL (<200) 09/03/17 06:05 LDL Cholesterol Direct 79 mg/dL (<100) 09/03/17 06:05 HDL Cholesterol 49.0 mg/dL (40-59) 09/03/17 06:05 Free T4 0.85 ng/dL (0.76-1.46) 09/02/17 19:00 TSH 3rd Generation 1.968 uIU/mL (0.358-3.74) 09/02/17 19:00 Urine Color Yellow (Yellow) 09/02/17 22:40 Urine Appearance Clear (Clear) 09/02/17 22:40 Urine pH 6.5 (5.0-8.0) 09/02/17 22:40 Ur Specific [place] 1.020 (1.005-1.030) 09/02/17 22:40 Urine Protein 2+ (Negative) H 09/02/17 22:40 Urine Glucose (UA) Negative (Negative) 09/02/17 22:40 Urine Ketones Negative (Negative) 09/02/17 22:40 Urine Occult Blood 1+ (Negative) H 09/02/17 22:40 Urine Nitrite Positive (Negative) H 09/02/17 22:40 Urine Bilirubin Negative (Negative) 09/02/17 22:40 Urine Urobilinogen 1.0 (0.2-1.0) 09/02/17 22:40 Ur Leukocyte Esterase 2+ (Negative) H 09/02/17 22:40 Urine RBC 0-5 /hpf (0-5) 09/02/17 22:40 Urine WBC 10-20 /hpf (0-5) H 09/02/17 22:40 Urine WBC Clumps Few /hpf (NOT SEEN) 09/02/17 22:40 Ur Epithelial Cells 0-5 /hpf (0-5) 09/02/17 22:40 Urine Bacteria Moderate /hpf (FEW) H 09/02/17 22:40 Fine Granular Casts 0-5 /lpf (0-5) 09/02/17 22:40 Urine Mucus Not seen /hpf (FEW) 09/02/17 22:40 Above lab values reviewed and noted. - Imaging/EKG Impressions: CXR: unremarkable EKG: Q waves noted in V1 and V2-old anteroseptal infarct, prolonged QT interval , Left atrial hypertrophy, rate= 120's - Allergies Allergies/Adverse Reactions: Allergies Allergy/AdvReac Type Severity Reaction Status Date / Time amitriptyline Allergy Cannot Verified 09/02/17 19:02 Remember ammonia Allergy Cannot Verified 09/02/17 19:02 Remember diphenhydramine HCl Allergy Cannot Verified 09/02/17 19:02 [From Benadryl] Remember divalproex sodium Allergy Other Verified 09/02/17 19:02 [From Depakote] gabapentin [From Neurontin] Allergy Cannot Verified 09/02/17 19:02 Remember latex Allergy Shortness Verified 09/02/17 19:02 of Breath perfume Allergy Cannot Verified 09/02/17 19:02 Remember soap Allergy Cannot Verified 09/02/17 19:02 Remember product representative Allergy Cannot Uncoded 08/26/17 15:22 Remember - Anesthesia Plan Pre-Op Medication Ordered: None - Acknowledgements Anesthesia Type Planned: MAC Pt an Appropriate Candidate for the Planned Anesthesia: Yes Alternatives and Risks of Anesthesia Discussed w Pt/Guardian: Yes Pt/Guardian Understands and Agrees with Anesthesia Plan: Yes PreAnesthesia Questionnaire HEENT History: Reports: Impaired Vision Other HEENT History: otitis media, eye surgery, glasses Cardiovascular History: Reports: High Cholesterol, Hypertension Other Cardiovascular History: angioplasty Respiratory History: Reports: Asthma Other Respiratory History: seasonal asthma Gastrointestinal History: Reports: GERD, Hiatal Hernia Other Gastrointestinal History: Chrons disease Genitourinary History: Reports: Urinary Incontinence TAX REPRESENTATIVE History: Reports: Other OB/BYN History: cervical mass, chlamydia in 1989; currently S/P TVH Other Musculoskeletal History: Degenerative joint disease, talupes cavus, R Side low back pain and sciatica, back surgery x 2 Neurological History: Reports: CVA, Migraines, Seizure Other Neuro History: hx of seizures; last seizure was 09/2014; not a seizure diagnosis per EEG, but a seizure caused by medications; stroke x 2 a year ago Psychiatric History: Reports: Bipolar, OCD, PTSD Other Psychiatric History: insomnia; Pt. has tremors noted to her head, neck and arms. Pt. states the tremors are from the medication she is on. Endocrine/Metabolic History: Reports: Obesity/BMI 30+ Dermatologic History: Reports: Decubitus Ulcer Other Dermatologic History: Previously healed decubitus ulcers on thighs due to neuropathy and treated by [facility] in [place], [place]. Decubitus ulcer on heel of right foot treated by outpatient dietitian in [place], [place]. A "crack" is noted to very dry skin or callous to Pt.'s heel is still noted - Past Surgical History Female Surgical History: Reports: Endometrial Ablation, Tubal Ligation - SUBSTANCE USE Smoking Status *Q: Never Smoker Second Hand Smoke Exposure: No Recreational Drug Use History: No - HOME MEDS Home Medications: Home Meds cloNIDine HCl [Catapres] 0.1 mg PO DAILY 04/30/15 [History] clonazePAM [Clonazepam] 0.5 mg PO BEDTIME 04/30/15 [History] Lurasidone HCl [Latuda] 60 mg PO DAILY 06/27/17 [History] QUEtiapine [SEROquel] 300 mg PO DAILY 06/27/17 [History] SUMAtriptan [Imitrex] 1 injection INJECT DAILY PRN 06/27/17 [History] Desvenlafaxine Succinate [Pristiq ER] 25 mg PO DAILY 08/26/17 [History] Lisinopril 20 mg PO DAILY 08/26/17 [History] Metoclopramide HCl [Reglan] 5 mg PO Q6HR #30 tablet 08/26/17 [Rx] Sucralfate [Carafate] 1 gm PO Q6H PRN #300 ml 08/26/17 [Rx] - CURRENT (IN HOUSE) MEDS Current Meds: Current Medications Acetaminophen (Tylenol) 650 mg PO Q4H PRN PRN Reason: Pain (Mild 1-3)/fever Last Admin: 09/03/17 20:53 Dose: 650 mg Hydrocodone Bitart/Acetaminophen ([place] 325-5 Mg) 1 tab PO Q4H PRN PRN Reason: Pain (moderate 4-6) Last Admin: 09/03/17 12:57 Dose: 1 tab Al Hydroxide/Mg Hydroxide (Mag-Al Plus) 30 ml PO Q4H PRN PRN Reason: Heartburn Last Admin: 09/03/17 18:12 Dose: 30 ml Albuterol/Ipratropium (Duoneb 3.0-0.5 Mg/3 Ml) 3 ml NEB Q4H PRN PRN Reason: Shortness Of Breath/wheezing Bisacodyl (Dulcolax) 5 mg PO DAILY PRN PRN Reason: Constipation Clonazepam (Klonopin) 0.5 mg PO BEDTIME [facility] Last Admin: 09/03/17 20:15 Dose: 0.5 mg Clonidine HCl (Catapres) 0.1 mg PO DAILY [facility] Last Admin: 09/03/17 08:03 Dose: 0.1 mg Docusate Sodium (Colace) 100 mg PO BID PRN PRN Reason: Constipation Heparin Sodium (Porcine) (Heparin Sodium) 5,000 units SUBCUT Q8H [facility] Last Admin: 09/03/17 21:00 Dose: 5,000 units Hydralazine HCl (Apresoline) 20 mg IVPUSH Q4H PRN PRN Reason: Hypertension Hydromorphone HCl (Dilaudid) 0.5 mg IVPUSH Q2H PRN PRN Reason: Pain (severe 7-10) Last Admin: 09/03/17 20:00 Dose: 0.5 mg Promethazine HCl 12.5 mg/ (Sodium Chloride) 50.5 mls @ 100 mls/hr IV Q6H PRN PRN Reason: Nausea/Vomiting Piperacillin Sod/Tazobactam (Sod 4.5 gm/ Sodium Chloride) 100 mls @ 25 mls/hr IV Q8H [facility] Last Admin: 09/03/17 20:07 Dose: 25 mls/hr Sodium Chloride (Normal Saline) 1,000 mls @ 150 mls/hr IV ASDIRECTED [facility] Last Admin: 09/03/17 11:33 Dose: 150 mls/hr Lisinopril (Prinivil) 20 mg PO DAILY [facility] Last Admin: 09/03/17 08:03 Dose: 20 mg Lorazepam (Ativan) 2 mg IVPUSH Q4H PRN PRN Reason: Seizures Lorazepam (Ativan) 1 mg IV Q6H PRN PRN Reason: Anxiety Magnesium Sulfate (Pharmacy To Dose - Magnesium Replacement) 1 dose .XX ASDIRECTED [facility] Metoprolol Tartrate (Lopressor) 5 mg IVPUSH Q4H PRN PRN Reason: Tachycardia Ondansetron HCl (Zofran) 4 mg IV Q6H PRN PRN Reason: Nausea/Vomiting Desvenlafaxine Succinate [Pristiq] 25 Mg 0 each PO DAILY [facility] Last Admin: 09/03/17 08:05 Dose: Not Given Lurasidone Hcl [ (Latuda] 60 Mg) 0 each PO DAILY [facility] Last Admin: 09/03/17 08:05 Dose: Not Given Polyethylene Glycol (Miralax) 17 gm PO DAILY PRN PRN Reason: Constipation Potassium Chloride (Pharmacy To Dose - Potassium Replacement) 1 dose .XX ASDIRECTED [facility] Quetiapine Fumarate (Seroquel) 300 mg PO BEDTIME [facility] Last Admin: 09/03/17 20:10 Dose: 300 mg Saccharomyces Boulardii (Florastor) 250 mg PO BID [facility] Last Admin: 09/03/17 20:14 Dose: 250 mg Senna/Docusate Sodium (Senna Plus) 1 tab PO BID PRN PRN Reason: Constipation Sucralfate (Carafate) 1 gm PO Q6H PRN PRN Reason: Abdominal Pain Last Admin: 09/03/17 04:55 Dose: 1 gm Sumatriptan Succinate (Imitrex) 6 mg SUBCUT DAILY PRN PRN Reason: Headache Temazepam (Restoril) 15 mg PO BEDTIME PRN PRN Reason: Sleep Tizanidine HCl (Zanaflex) 4 mg PO Q6H PRN PRN Reason: Spasms Discontinued Medications Acetaminophen (Tylenol) 975 mg PO NOW ONE Stop: 09/02/17 21:20 Last Admin: 09/02/17 21:26 Dose: 975 mg Al Hydroxide/Mg Hydroxide 30 (ml/ Lidocaine HCl 15 ml) 0 ml PO ONETIME ONE Stop: 09/02/17 20:27 Last Admin: 09/02/17 20:29 Dose: 45 ml Hydromorphone HCl (Dilaudid) 0.5 mg IVPUSH ONETIME ONE Stop: 09/02/17 20:49 Last Admin: 09/02/17 21:11 Dose: 0.5 mg Hydromorphone HCl (Dilaudid) 2 mg IVPUSH ONETIME ONE Stop: 09/03/17 16:45 Last Admin: 09/03/17 17:20 Dose: Not Given Hydromorphone HCl (Dilaudid) 2 mg IVPUSH ONETIME ONE Stop: 09/03/17 17:16 Hydromorphone HCl (Dilaudid) 2 mg IVPUSH ONETIME ONE Stop: 09/03/17 17:16 Last Admin: 09/03/17 17:31 Dose: Not Given Hydromorphone HCl (Dilaudid) 2 mg IVPUSH ONETIME ONE Stop: 09/03/17 17:31 Last Admin: 09/03/17 17:31 Dose: Not Given Hydromorphone HCl (Dilaudid) 2 mg IV ONETIME ONE Stop: 09/03/17 17:31 Last Admin: 09/03/17 17:28 Dose: 2 mg Hydromorphone HCl (Dilaudid) 0.5 mg IVPUSH ONETIME ONE Stop: 09/03/17 17:31 Last Admin: 09/03/17 17:32 Dose: Not Given Sodium Chloride (Normal Saline) 1,000 mls @ 250 mls/hr IV ASDIRECTED [facility] Last Admin: 09/03/17 02:23 Dose: 250 mls/hr Clindamycin Phosphate 900 mg/ (Sodium Chloride) 106 mls @ 100 mls/hr IV ONETIME ONE Stop: 09/02/17 20:36 Last Admin: 09/02/17 20:02 Dose: 100 mls/hr Vancomycin HCl 2 gm/ Sodium (Chloride) 250 mls @ 250 mls/hr IV ONETIME ONE Stop: 09/02/17 20:33 Last Admin: 09/02/17 20:04 Dose: 250 mls/hr Vancomycin HCl 2 gm/ Sodium (Chloride) 500 mls @ 250 mls/hr IV Q12H [facility] Last Admin: 09/03/17 08:58 Dose: Not Given Piperacillin Sod/Tazobactam (Sod 4.5 gm/ Sodium Chloride) 100 mls @ 200 mls/hr IV ONETIME ONE Stop: 09/02/17 22:59 Last Admin: 09/02/17 22:57 Dose: 200 mls/hr Vancomycin HCl 1.5 gm/ Sodium (Chloride) 500 mls @ 250 mls/hr IV Q12H [facility] Last Admin: 09/03/17 09:47 Dose: Not Given Vancomycin HCl 1.5 gm/ Sodium (Chloride) 500 mls @ 250 mls/hr IV Q12H [facility] Last Admin: 09/03/17 10:12 Dose: 250 mls/hr Ibuprofen (Motrin) 800 mg PO ONETIME ONE Stop: 09/02/17 19:14 Last Admin: 09/02/17 19:20 Dose: 800 mg Metoclopramide HCl (Reglan) 10 mg IVPUSH ONETIME ONE Stop: 09/02/17 20:50 Last Admin: 09/02/17 21:09 Dose: 10 mg Metoclopramide HCl (Reglan) 5 mg PO Q6H [facility] Last Admin: 09/03/17 08:03 Dose: 5 mg Potassium Chloride (Klor-Con M20) 40 meq PO Q4H [facility] Stop: 09/03/17 01:46 Last Admin: 09/03/17 02:22 Dose: 40 meq Quetiapine Fumarate (Seroquel) 300 mg PO DAILY [facility] Last Admin: 09/03/17 08:06 Dose: Not Given Vancomycin HCl (Vancomycin) 2,020.755 mg 15 mg/kg (2020.755 mg) IV Q12H [facility] Last Admin: 09/03/17 08:58 Dose: Not Given Vancomycin HCl (Pharmacy To Dose - Vancomycin) 1 dose .XX ASDIRECTED [facility]
[2017-09-03] MEDS: Acetaminophen/HYDROcodone 325-5 MG Tab PO PRN (12:57)
--- NOTE | 2017-09-03 13:06 | PCM.CONS ---
H&P History of Present Illness - General Date of Service: 09/03/17 Admit Problem/Dx: Admission Diagnosis/Problem Admission Diagnosis/Problem Acute febrile illness Source of Information: Patient, Family (Patient's daughter in the room, also provided history.), Old Records History Limitations: Reports: No Limitations - History of Present Illness Initial Comments - Free Text/Narative: 52 yo female, h/o multiple medical problems, was admitted through the ER late last night on the hospitalist service, found to have gram negative bacteremia. The main complaints that the patient has, which prompted her to seek medical care emergently, were a stabbing/spasm sensation along the back of her RIGHT thigh, and a fever of 106 degrees F. The patient has a history of peripheral neuropathy secondary to back surgery in 2000. As a result of this peripheral neuropathy, she developed a RIGHT heel wound, which has been present since 2000. This wound undergoes evaluation with podiatry regularly, and about once a year, she undergoes a clinic procedure to ' shave down' the wound. However, in the past few months, the wound has gotten worse (larger and deeper). She is supposed to undergo evaluation by a consulting analyst , but she is still awaiting updates from her [facility]'s nursing staff. Right Upper Leg Pain Score (Numeric/FACES): 7 - Related Data Allergies/Adverse Reactions: Allergies Allergy/AdvReac Type Severity Reaction Status Date / Time amitriptyline Allergy Cannot Verified 09/02/17 19:02 Remember ammonia Allergy Cannot Verified 09/02/17 19:02 Remember diphenhydramine HCl Allergy Cannot Verified 09/02/17 19:02 [From Benadryl] Remember divalproex sodium Allergy Other Verified 09/02/17 19:02 [From Depakote] gabapentin [From Neurontin] Allergy Cannot Verified 09/02/17 19:02 Remember latex Allergy Shortness Verified 09/02/17 19:02 of Breath perfume Allergy Cannot Verified 09/02/17 19:02 Remember soap Allergy Cannot Verified 09/02/17 19:02 Remember park interpretive ranger Allergy Cannot Uncoded 08/26/17 15:22 Remember Home Medications: Home Meds cloNIDine HCl [Catapres] 0.1 mg PO DAILY 04/30/15 [History] clonazePAM [Clonazepam] 0.5 mg PO BEDTIME 04/30/15 [History] Lurasidone HCl [Latuda] 60 mg PO DAILY 06/27/17 [History] QUEtiapine [SEROquel] 300 mg PO DAILY 06/27/17 [History] SUMAtriptan [Imitrex] 1 injection INJECT DAILY PRN 06/27/17 [History] Desvenlafaxine Succinate [Pristiq ER] 25 mg PO DAILY 08/26/17 [History] Lisinopril 20 mg PO DAILY 08/26/17 [History] Metoclopramide HCl [Reglan] 5 mg PO Q6HR #30 tablet 08/26/17 [Rx] Sucralfate [Carafate] 1 gm PO Q6H PRN #300 ml 08/26/17 [Rx] Past Medical History HEENT History: Reports: Impaired Vision Other HEENT History: otitis media, eye surgery, glasses Cardiovascular History: Reports: High Cholesterol, Hypertension Other Cardiovascular History: angioplasty Respiratory History: Reports: Asthma Other Respiratory History: seasonal asthma Gastrointestinal History: Reports: GERD, Hiatal Hernia Other Gastrointestinal History: Chrons disease Genitourinary History: Reports: Urinary Incontinence 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 has tremors noted to her head, neck and arms. Pt. states the tremors are from the medication she is on. Endocrine/Metabolic History: Reports: Obesity/BMI 30+ Dermatologic History: Reports: Decubitus Ulcer Other Dermatologic History: Previously healed decubitus ulcers on thighs due to neuropathy and treated by [facility] in [place], [place]. Decubitus ulcer on heel of right foot treated by consulting analyst in [place], [place]. A "crack" is noted to very dry skin or callous to Pt.'s heel is still noted - Past Surgical History GI Surgical History: Reports: Cholecystectomy Female Surgical History: Reports: Endometrial Ablation, Tubal Ligation Social & Family History - Family History Family Medical History: Noncontributory HEENT: Reports: Cataract Cardiac: Reports: [facility] GI: Reports: Inflammatory Bowel Disease, Other (See Below) Other GI Family History: colitis OBGYN: Reports: Other (See Below) Other OBGYN Family History: cervical cancer Psychiatric: Reports: ADHD, Bipolar, Schizophrenia Endocrine/Metabolic: Reports: Other (See Below) Other Endocrine/Metabolic Family History: several family members with diabetes Oncologic: Reports: Cervix, Uterine - Tobacco Use Smoking Status *Q: Never Smoker Second Hand Smoke Exposure: No - Caffeine Use Caffeine Use: Reports: Coffee Other Caffeine Use: 2 cans/day - Recreational Drug Use Recreational Drug Use: No - Living Situation & Occupation Living situation: Reports: Single Occupation: Disabled H&P Review of Systems - Review of Systems: Review Of Systems: ROS reveals no pertinent complaints other than HPI. Exam - Exam Exam: See Below - Vital Signs Vital Signs: Last Vital Signs Temp 36.8 C 09/03/17 12:40 Pulse 97 09/03/17 12:40 Resp 18 09/03/17 12:40 BP 133/83 09/03/17 12:40 Pulse Ox 99 09/03/17 12:40 Weight: 140.659 kg - Exam HEENT: Conjunctiva Clear GI/Abdominal Exam: Soft, Non-Tender, No Distention Extremities: Other (RIGHT HEEL WITH OPEN THICKENING OF EPIDERMAL LAYER AND DEEP FISSURES. NONTENDER.) Peripheral Pulses: 1+: Posterior Tibial (L), Posterior Tibial (R), 2+: Dorsalis Pedis (L), Dorsalis Pedis (R) Neuro Extensive - Motor, Sensory, Reflexes: Motor/Sensory Deficits (DECREASED SENSATION TO THE RIGHT FOOT/CALF. MOTOR 4/5 LOWER EXTREMITIES.) - Patient Data Lab Results Last 24 hrs: Laboratory Results - last 24 hr 09/02/17 09/02/17 09/02/17 Range/Units 19:00 19:00 19:00 WBC 15.53 H (3.98-10.04) K/mm3 RBC 4.23 (3.98-5.22) M/mm3 Hgb 11.6 (11.2-15.7) gm/L Hct 36.0 (34.1-44.9) % MCV 85.1 (79.4-94.8) fl MCH 27.4 (25.6-32.2) pg MCHC 32.2 (32.2-35.5) g/dl RDW Std Deviation 44.0 (36.4-46.3) fL Plt Count 221 (182-369) K/mm3 MPV 11.0 (9.4-12.3) fl Neut % (Auto) (34.0-71.1) % Lymph % (Auto) (19.3-51.7) % [place] % (Auto) (4.7-12.5) % Eos % (Auto) (0.7-5.8) Baso % (Auto) (0.1-1.2) % Neut # (Auto) (1.56-6.13) K/mm3 Lymph # (Auto) (1.18-3.74) K/mm3 Alger # (Auto) (0.24-0.36) K/mm3 Eos # (Auto) (0.04-0.36) K/mm3 Baso # (Auto) (0.01-0.08) K/mm3 Neutrophils % (Manual) 91 H (40-60) % Band Neutrophils % 0 (0-10) % Lymphocytes % (Manual) 5 L (20-40) % Atypical Lymphs % 0 % Monocytes % (Manual) 4 (2-10) % Eosinophils % (Manual) 0 L (0.7-5.8) % Basophils % (Manual) 0 L (0.1-1.2) Platelet Estimate Adequate Plt Morphology Comment Normal RBC Morph Comment Normal ESR (0-20) mm/hr Sodium 137 (136-145) mEq/L Potassium 3.4 L (3.5-5.1) mEq/L Chloride 101 (98-107) mEq/L Carbon Dioxide 25 (21-32) mEq/L Anion Gap 14.4 (5-15) BUN 25 H (7-18) mg/dL Creatinine 1.8 H (0.55-1.02) mg/dL Est Cr Clr Drug Dosing 40.40 mL/min Estimated GFR (MDRD) 29 (>60) mL/min BUN/Creatinine Ratio 13.9 L (14-18) Glucose 142 H (74-106) mg/dL Hemoglobin A1c (4.50-6.20) % Lactic Acid 0.9 (0.4-2.0) mmol/L Calcium 8.5 (8.5-10.1) mg/dL Magnesium 2.1 (1.8-2.4) mg/dl Total Bilirubin 0.6 (0.2-1.0) mg/dL AST 32 (15-37) U/L ALT 41 (14-59) U/L Alkaline Phosphatase 238 H (46-116) U/L Creatine Kinase 133 (26-192) U/L C-Reactive Protein 37.1 H* (<1.0) mg/dL NT-Pro-B Natriuret Pep (0-125) pg/mL Total Protein 7.9 (6.4-8.2) g/dl Albumin 2.9 L (3.4-5.0) g/dl Globulin 5.0 gm/dL Albumin/Globulin Ratio 0.6 L (1-2) Triglycerides (<150) mg/dL Cholesterol (<200) mg/dL LDL Cholesterol Direct (<100) mg/dL HDL Cholesterol (40-59) mg/dL Free T4 (0.76-1.46) ng/dL TSH 3rd Generation (0.358-3.74) uIU/mL Urine Color (Yellow) Urine Appearance (Clear) Urine pH (5.0-8.0) Ur Specific [place] (1.005-1.030) Urine Protein (Negative) Urine Glucose (UA) (Negative) Urine Ketones (Negative) Urine Occult Blood (Negative) Urine Nitrite (Negative) Urine Bilirubin (Negative) Urine Urobilinogen (0.2-1.0) Ur Leukocyte Esterase (Negative) Urine RBC (0-5) /hpf Urine WBC (0-5) /hpf Urine WBC Clumps (NOT SEEN) /hpf Ur Epithelial Cells (0-5) /hpf Urine Bacteria (FEW) /hpf Fine Granular Casts (0-5) /lpf Urine Mucus (FEW) /hpf 09/02/17 09/02/17 09/02/17 Range/Units 19:00 19:00 19:00 WBC (3.98-10.04) K/mm3 RBC (3.98-5.22) M/mm3 Hgb (11.2-15.7) gm/L Hct (34.1-44.9) % MCV (79.4-94.8) fl MCH (25.6-32.2) pg MCHC (32.2-35.5) g/dl RDW Std Deviation (36.4-46.3) fL Plt Count (182-369) K/mm3 MPV (9.4-12.3) fl Neut % (Auto) (34.0-71.1) % Lymph % (Auto) (19.3-51.7) % [place] % (Auto) (4.7-12.5) % Eos % (Auto) (0.7-5.8) Baso % (Auto) (0.1-1.2) % Neut # (Auto) (1.56-6.13) K/mm3 Lymph # (Auto) (1.18-3.74) K/mm3 Alger # (Auto) (0.24-0.36) K/mm3 Eos # (Auto) (0.04-0.36) K/mm3 Baso # (Auto) (0.01-0.08) K/mm3 Neutrophils % (Manual) (40-60) % Band Neutrophils % (0-10) % Lymphocytes % (Manual) (20-40) % Atypical Lymphs % % Monocytes % (Manual) (2-10) % Eosinophils % (Manual) (0.7-5.8) % Basophils % (Manual) (0.1-1.2) Platelet Estimate Plt Morphology Comment RBC Morph Comment ESR 103 H (0-20) mm/hr Sodium (136-145) mEq/L Potassium (3.5-5.1) mEq/L Chloride (98-107) mEq/L Carbon Dioxide (21-32) mEq/L Anion Gap (5-15) BUN (7-18) mg/dL Creatinine (0.55-1.02) mg/dL Est Cr Clr Drug Dosing mL/min Estimated GFR (MDRD) (>60) mL/min BUN/Creatinine Ratio (14-18) Glucose (74-106) mg/dL Hemoglobin A1c (4.50-6.20) % Lactic Acid (0.4-2.0) mmol/L Calcium (8.5-10.1) mg/dL Magnesium (1.8-2.4) mg/dl Total Bilirubin (0.2-1.0) mg/dL AST (15-37) U/L ALT (14-59) U/L Alkaline Phosphatase (46-116) U/L Creatine Kinase (26-192) U/L C-Reactive Protein (<1.0) mg/dL NT-Pro-B Natriuret Pep 200 H (0-125) pg/mL Total Protein (6.4-8.2) g/dl Albumin (3.4-5.0) g/dl Globulin gm/dL Albumin/Globulin Ratio (1-2) Triglycerides (<150) mg/dL Cholesterol (<200) mg/dL LDL Cholesterol Direct (<100) mg/dL HDL Cholesterol (40-59) mg/dL Free T4 0.85 (0.76-1.46) ng/dL TSH 3rd Generation 1.968 (0.358-3.74) uIU/mL Urine Color (Yellow) Urine Appearance (Clear) Urine pH (5.0-8.0) Ur Specific [place] (1.005-1.030) Urine Protein (Negative) Urine Glucose (UA) (Negative) Urine Ketones (Negative) Urine Occult Blood (Negative) Urine Nitrite (Negative) Urine Bilirubin (Negative) Urine Urobilinogen (0.2-1.0) Ur Leukocyte Esterase (Negative) Urine RBC (0-5) /hpf Urine WBC (0-5) /hpf Urine WBC Clumps (NOT SEEN) /hpf Ur Epithelial Cells (0-5) /hpf Urine Bacteria (FEW) /hpf Fine Granular Casts (0-5) /lpf Urine Mucus (FEW) /hpf 09/02/17 09/02/17 09/03/17 Range/Units 19:00 22:40 06:05 WBC 9.92 (3.98-10.04) K/mm3 RBC 4.07 (3.98-5.22) M/mm3 Hgb 11.1 L (11.2-15.7) gm/L Hct 34.9 (34.1-44.9) % MCV 85.7 (79.4-94.8) fl MCH 27.3 (25.6-32.2) pg MCHC 31.8 L (32.2-35.5) g/dl RDW Std Deviation 44.9 (36.4-46.3) fL Plt Count 196 (182-369) K/mm3 MPV 11.0 (9.4-12.3) fl Neut % (Auto) 82.2 H (34.0-71.1) % Lymph % (Auto) 10.6 L (19.3-51.7) % Alger % (Auto) 5.1 (4.7-12.5) % Eos % (Auto) 1.8 (0.7-5.8) Baso % (Auto) 0.1 (0.1-1.2) % Neut # (Auto) 8.15 H (1.56-6.13) K/mm3 Lymph # (Auto) 1.05 L (1.18-3.74) K/mm3 Alger # (Auto) 0.51 H (0.24-0.36) K/mm3 Eos # (Auto) 0.18 (0.04-0.36) K/mm3 Baso # (Auto) 0.01 (0.01-0.08) K/mm3 Neutrophils % (Manual) (40-60) % Band Neutrophils % (0-10) % Lymphocytes % (Manual) (20-40) % Atypical Lymphs % % Monocytes % (Manual) (2-10) % Eosinophils % (Manual) (0.7-5.8) % Basophils % (Manual) (0.1-1.2) Platelet Estimate Plt Morphology Comment RBC Morph Comment ESR (0-20) mm/hr Sodium (136-145) mEq/L Potassium (3.5-5.1) mEq/L Chloride (98-107) mEq/L Carbon Dioxide (21-32) mEq/L Anion Gap (5-15) BUN (7-18) mg/dL Creatinine (0.55-1.02) mg/dL Est Cr Clr Drug Dosing mL/min Estimated GFR (MDRD) (>60) mL/min BUN/Creatinine Ratio (14-18) Glucose (74-106) mg/dL Hemoglobin A1c 5.50 (4.50-6.20) % Lactic Acid (0.4-2.0) mmol/L Calcium (8.5-10.1) mg/dL Magnesium (1.8-2.4) mg/dl Total Bilirubin (0.2-1.0) mg/dL AST (15-37) U/L ALT (14-59) U/L Alkaline Phosphatase (46-116) U/L Creatine Kinase (26-192) U/L C-Reactive Protein (<1.0) mg/dL NT-Pro-B Natriuret Pep (0-125) pg/mL Total Protein (6.4-8.2) g/dl Albumin (3.4-5.0) g/dl Globulin gm/dL Albumin/Globulin Ratio (1-2) Triglycerides (<150) mg/dL Cholesterol (<200) mg/dL LDL Cholesterol Direct (<100) mg/dL HDL Cholesterol (40-59) mg/dL Free T4 (0.76-1.46) ng/dL TSH 3rd Generation (0.358-3.74) uIU/mL Urine Color Yellow (Yellow) Urine Appearance Clear (Clear) Urine pH 6.5 (5.0-8.0) Ur Specific [place] 1.020 (1.005-1.030) Urine Protein 2+ H (Negative) Urine Glucose (UA) Negative (Negative) Urine Ketones Negative (Negative) Urine Occult Blood 1+ H (Negative) Urine Nitrite Positive H (Negative) Urine Bilirubin Negative (Negative) Urine Urobilinogen 1.0 (0.2-1.0) Ur Leukocyte Esterase 2+ H (Negative) Urine RBC 0-5 (0-5) /hpf Urine WBC 10-20 H (0-5) /hpf Urine WBC Clumps Few (NOT SEEN) /hpf Ur Epithelial Cells 0-5 (0-5) /hpf Urine Bacteria Moderate H (FEW) /hpf Fine Granular Casts 0-5 (0-5) /lpf Urine Mucus Not seen (FEW) /hpf 09/03/17 Range/Units 06:05 WBC (3.98-10.04) K/mm3 RBC (3.98-5.22) M/mm3 Hgb (11.2-15.7) gm/L Hct (34.1-44.9) % MCV (79.4-94.8) fl MCH (25.6-32.2) pg MCHC (32.2-35.5) g/dl RDW Std Deviation (36.4-46.3) fL Plt Count (182-369) K/mm3 MPV (9.4-12.3) fl Neut % (Auto) (34.0-71.1) % Lymph % (Auto) (19.3-51.7) % [place] % (Auto) (4.7-12.5) % Eos % (Auto) (0.7-5.8) Baso % (Auto) (0.1-1.2) % Neut # (Auto) (1.56-6.13) K/mm3 Lymph # (Auto) (1.18-3.74) K/mm3 [place] # (Auto) (0.24-0.36) K/mm3 Eos # (Auto) (0.04-0.36) K/mm3 Baso # (Auto) (0.01-0.08) K/mm3 Neutrophils % (Manual) (40-60) % Band Neutrophils % (0-10) % Lymphocytes % (Manual) (20-40) % Atypical Lymphs % % Monocytes % (Manual) (2-10) % Eosinophils % (Manual) (0.7-5.8) % Basophils % (Manual) (0.1-1.2) Platelet Estimate Plt Morphology Comment RBC Morph Comment ESR (0-20) mm/hr Sodium 142 (136-145) mEq/L Potassium 3.5 (3.5-5.1) mEq/L Chloride 108 H (98-107) mEq/L Carbon Dioxide 25 (21-32) mEq/L Anion Gap 12.5 (5-15) BUN 22 H (7-18) mg/dL Creatinine 1.6 H (0.55-1.02) mg/dL Est Cr Clr Drug Dosing 45.45 mL/min Estimated GFR (MDRD) 34 (>60) mL/min BUN/Creatinine Ratio 13.8 L (14-18) Glucose 104 (74-106) mg/dL Hemoglobin A1c (4.50-6.20) % Lactic Acid (0.4-2.0) mmol/L Calcium 7.8 L (8.5-10.1) mg/dL Magnesium 2.3 (1.8-2.4) mg/dl Total Bilirubin (0.2-1.0) mg/dL AST (15-37) U/L ALT (14-59) U/L Alkaline Phosphatase (46-116) U/L Creatine Kinase (26-192) U/L C-Reactive Protein 30.9 H* (<1.0) mg/dL NT-Pro-B Natriuret Pep (0-125) pg/mL Total Protein (6.4-8.2) g/dl Albumin (3.4-5.0) g/dl Globulin gm/dL Albumin/Globulin Ratio (1-2) Triglycerides 77 (<150) mg/dL Cholesterol 151 (<200) mg/dL LDL Cholesterol Direct 79 (<100) mg/dL HDL Cholesterol 49.0 (40-59) mg/dL Free T4 (0.76-1.46) ng/dL TSH 3rd Generation (0.358-3.74) uIU/mL Urine Color (Yellow) Urine Appearance (Clear) Urine pH (5.0-8.0) Ur Specific [place] (1.005-1.030) Urine Protein (Negative) Urine Glucose (UA) (Negative) Urine Ketones (Negative) Urine Occult Blood (Negative) Urine Nitrite (Negative) Urine Bilirubin (Negative) Urine Urobilinogen (0.2-1.0) Ur Leukocyte Esterase (Negative) Urine RBC (0-5) /hpf Urine WBC (0-5) /hpf Urine WBC Clumps (NOT SEEN) /hpf Ur Epithelial Cells (0-5) /hpf Urine Bacteria (FEW) /hpf Fine Granular Casts (0-5) /lpf Urine Mucus (FEW) /hpf Result Diagrams: 09/03/17 06:05 09/03/17 06:05 Davon Results Last 24 hrs: Microbiology 09/02/17 19:00 Anaerobic Blood Culture - Preliminary Blood - Venous Gram Negative Rods 09/02/17 19:10 Anaerobic Blood Culture - Preliminary Blood - Venous - Lab Draw Gram Negative Rods Consult PN Assessment/Plan Procedures: Procedures ASSAY OF ACETAMINOPHEN (03/12/14) ASSAY OF CREATININE (02/15/14) ASSAY OF ETHANOL (03/12/14) ASSAY OF MAGNESIUM (12/13/14) ASSAY OF PHOSPHORUS (12/13/14) ASSAY OF SALICYLATE (03/12/14) ASSAY OF TROPONIN QUANT (08/26/17) BLOOD TYPING SEROLOGIC ABO (05/01/15) BLOOD TYPING SEROLOGIC RH(D) (05/01/15) C-REACTIVE PROTEIN (01/29/14) CHEST X-RAY 1 VIEW FRONTAL (12/13/14) COMPLETE CBC AUTOMATED (05/01/15) COMPLETE CBC W/AUTO DIFF WBC (08/26/17) COMPREHEN METABOLIC PANEL (08/26/17) CREATINE MB FRACTION (01/29/14) CT HEAD/BRAIN W/O DYE (07/13/14) CT NECK SPINE W/O DYE (07/13/14) ELECTROCARDIOGRAM TRACING (08/26/17) EMERGENCY DEPT VISIT (08/26/17) EMERGENCY DEPT VISIT (06/27/17) EMERGENCY DEPT VISIT (12/13/14) EMERGENCY DEPT VISIT (08/01/14) EMERGENCY DEPT VISIT (03/12/14) EMERGENCY DEPT VISIT (01/22/14) FIBRIN DEGRADATION QUANT (08/26/17) HELICOBACTER PYLORI ANTIBODY (08/26/17) HYDRATE IV INFUSION ADD-ON (03/12/14) HYDRATION IV INFUSION INIT (03/12/14) METABOLIC PANEL TOTAL CA (05/01/15) MRI LUMBAR SPINE W/O & W/DYE (02/15/14) POLYSOM 6/> YRS 4/> KEYSHAWN (03/14/15) RBC ANTIBODY SCREEN (05/01/15) ROUTINE VENIPUNCTURE (08/26/17) THER/PROPH/DIAG INJ IV PUSH (05/01/15) THER/PROPH/DIAG INJ SC/IM (06/27/17) TISSUE EXAM BY PATHOLOGIST (05/01/15) TX/PRO/DX INJ NEW DRUG ADDON (06/04/14) TX/PRO/DX INJ SAME DRUG CLIENT SUCCESS SPECIALIST (05/01/15) URINALYSIS AUTO W/SCOPE (08/01/14) VAGINAL HYSTERECTOMY (05/01/15) X-RAY EXAM CHEST 1 VIEW (08/26/17) X-RAY EXAM OF ANKLE (07/13/14) X-RAY EXAM OF HIP (07/13/14) X-RAY EXAM OF HUMERUS (07/13/14) X-RAY EXAM OF PELVIS (07/13/14) Problem List Initiated/Reviewed/Updated: Yes Plan: 52 yo female, h/o multiple medical problems, including peripheral neuropathy ( from multiple back surgeries almost 20 years ago) and RIGHT foot chronic wound, bipolar disorder, obesity, CKD, GERD, admitted on the hospitalist service with gram negative bacteremia, on broad-spectrum antibiotics (Zosyn/vancomycin). Patient also with a chronic RIGHT foot wound. Good peripheral pulses. Results of bone scan reviewed - no evidence of osteomyelitis. - Agree with broad spectrum antibiotics for now. - Unclear if this RIGHT heel wound is the source of infection. Potential UTI suspected. Will follow-up on final cultures results. - No indication for urgent wound debridement at this time. - Will plan to re-evaluate the wound in 24 hours. - Recommend NPO after midnight in case requires wound debridement in the OR. - Recommend Podiatry consultation. Rogelio Mendoza M.D., F.A.C.S. General Surgery Pager: [phone]
--- NOTE | 2017-09-03 14:12 | NM ---
Three-phase bone scan Technique: 21.1 mCi of technetium 99 M MDP was given intravenously. Three-phase bone scan study was then performed over both ankles and feet. Findings: No abnormal blood flow is seen. No abnormal soft tissue activity is seen. Delayed images shows minimal activity within the tibiotalar joint on the left side compatible with degenerative change. Minimal activity is seen within the left distal first toe compatible with degenerative change. Nothing seen to indicate osteomyelitis. Impression: 1. Delayed images shows mild activity as described above compatible with degenerative change. 2. Nothing is seen to indicate osteomyelitis. Diagnostic code #2
[2017-09-03] MEDS: HYDROmorphone 0.5 MG/0.5 ML SYRINGE IVPUSH PRN ×2 (15:45→20:00)
[2017-09-03] MEDS ORDERED: HYDROmorphone 1 MG/ML Syringe IVPUSH ONE ×2 (16:44→17:15)
[2017-09-03] MEDS ORDERED: HYDROmorphone 0.5 MG/0.5 ML Syringe IVPUSH ONE ×3 (17:15→17:30)
[2017-09-03] MEDS ORDERED: HYDROmorphone 0.5 MG/0.5 ML SYRINGE IV ONE (17:30)
[2017-09-03] MEDS: Aluminum Hydroxide/Magnesium Hydroxide/Simethicone Susp 30 ML Cup PO PRN (18:12)
[2017-09-03] MEDS: ClonazePAM 0.5 MG Tab PO SCH (20:15)
[2017-09-04] MEDS: Sodium Chloride 0.9% 1,000 ML IV SCH ×2 (04:31→11:38)
[2017-09-04] MEDS: Piperacillin/Tazobactam 4.5 GM in Sodium Chloride 0.9% 100 ML IV SCH ×2 (04:32→11:38)
[2017-09-04] MEDS: Acetaminophen/HYDROcodone 325-5 MG Tab PO PRN ×2 (04:44→16:58)
[2017-09-04] MEDS: Heparin Sodium 5,000 Units/ML Vial SUBCUT SCH ×4 (07:00→23:03)
--- NOTE | 2017-09-04 07:26 | PCM.PN ---
- General Info Date of Service: 09/04/17 Admission Dx/Problem (Free Text): Admission Diagnosis/Problem Admission Diagnosis/Problem Acute febrile illness Subjective Update: Follow Up Functional Status: Reports: Pain Controlled, Tolerating Diet, Urinating, New Symptoms Pain Score: 5 - Review of Systems General: Reports: Weakness (but improved). Denies: Fever, Fatigue, Malaise, Chills HEENT: Reports: No Symptoms Pulmonary: Reports: Shortness of Breath. Denies: Cough, Sputum, Wheezing Cardiovascular: Denies: Chest Pain, Palpitations, Dyspnea on Exertion, Lightheadedness Gastrointestinal: Denies: Abdominal Pain, Decreased Appetite, Nausea, Vomiting Genitourinary: Reports: No Symptoms Musculoskeletal: Reports: Back Pain Skin: Denies: Cyanosis, Mottled, Pallor, Diaphoresis Neurological: Reports: Pre-Existing Deficit, Weakness, Gait Disturbance. Denies : Confusion Psychiatric: Denies: Depression, Anxiety, Agitation, Hallucinations Systems Review Comment:: No significant overnight or acute issues. She slept good. Her pain is controlled. She has no new complaints. She remains afebrile w/o leukocytosis. Her CRP is now down to 29K. However her blood pressure are not well controlled. Her heart burn is better but she feels short of breath this am. She denies having chest pain or dyspnea. - Patient Data Vitals - Most Recent: Last Vital Signs Temp 38.1 C 09/04/17 04:36 Pulse 111 H 09/04/17 04:36 Resp 18 09/04/17 04:36 BP 148/76 H 09/04/17 04:36 Pulse Ox 97 09/04/17 04:36 Weight - Most Recent: 144.56 kg I&O - Last 24 Hours: Intake & Output 09/03/17 09/04/17 09/04/17 22:59 06:59 14:59 Intake Total 3078 1365 Output Total 200 Balance 2878 1365 Lab Results Last 24 Hours: Laboratory Results - last 24 hr 09/03/17 09/04/17 Range/Units 06:05 05:58 WBC 7.68 (3.98-10.04) K/mm3 RBC 3.75 L (3.98-5.22) M/mm3 Hgb 10.4 L (11.2-15.7) gm/L Hct 32.2 L (34.1-44.9) % MCV 85.9 (79.4-94.8) fl MCH 27.7 (25.6-32.2) pg MCHC 32.3 (32.2-35.5) g/dl RDW Std Deviation 45.5 (36.4-46.3) fL Plt Count 224 (182-369) K/mm3 MPV 11.0 (9.4-12.3) fl Neut % (Auto) 72.9 H (34.0-71.1) % Lymph % (Auto) 17.6 L (19.3-51.7) % [place] % (Auto) 7.0 (4.7-12.5) % Eos % (Auto) 1.7 (0.7-5.8) Baso % (Auto) 0.3 (0.1-1.2) % Neut # (Auto) 5.60 (1.56-6.13) K/mm3 Lymph # (Auto) 1.35 (1.18-3.74) K/mm3 [place] # (Auto) 0.54 H (0.24-0.36) K/mm3 Eos # (Auto) 0.13 (0.04-0.36) K/mm3 Baso # (Auto) 0.02 (0.01-0.08) K/mm3 Sodium 142 (136-145) mEq/L Potassium 3.5 (3.5-5.1) mEq/L Chloride 108 H (98-107) mEq/L Carbon Dioxide 25 (21-32) mEq/L Anion Gap 12.5 (5-15) BUN 22 H (7-18) mg/dL Creatinine 1.6 H (0.55-1.02) mg/dL Est Cr Clr Drug Dosing 45.45 mL/min Estimated GFR (MDRD) 34 (>60) mL/min BUN/Creatinine Ratio 13.8 L (14-18) Glucose 104 (74-106) mg/dL Calcium 7.8 L (8.5-10.1) mg/dL Magnesium 2.3 (1.8-2.4) mg/dl C-Reactive Protein 30.9 H* (<1.0) mg/dL Triglycerides 77 (<150) mg/dL Cholesterol 151 (<200) mg/dL LDL Cholesterol Direct 79 (<100) mg/dL HDL Cholesterol 49.0 (40-59) mg/dL [place] Results Last 24 Hours: Microbiology 09/02/17 19:10 Aerobic Blood Culture - Preliminary Blood - Venous - Lab Draw NO GROWTH AFTER 1 DAY Anaerobic Blood Culture - Preliminary Gram Negative Rods 09/02/17 19:00 Aerobic Blood Culture - Preliminary Blood - Venous NO GROWTH AFTER 1 DAY Anaerobic Blood Culture - Preliminary Gram Negative Rods 09/02/17 22:40 Urine Culture - Preliminary Urine, Voided Gram Negative Rods Med Orders - Current: Current Medications Acetaminophen (Tylenol) 650 mg PO Q4H PRN PRN Reason: Pain (Mild 1-3)/fever Last Admin: 09/03/17 20:53 Dose: 650 mg Hydrocodone Bitart/Acetaminophen ([place] 325-5 Mg) 1 tab PO Q4H PRN PRN Reason: Pain (moderate 4-6) Last Admin: 09/04/17 04:44 Dose: 1 tab Al Hydroxide/Mg Hydroxide (Mag-Al Plus) 30 ml PO Q4H PRN PRN Reason: Heartburn Last Admin: 09/03/17 18:12 Dose: 30 ml Albuterol/Ipratropium (Duoneb 3.0-0.5 Mg/3 Ml) 3 ml NEB Q4H PRN PRN Reason: Shortness Of Breath/wheezing Bisacodyl (Dulcolax) 5 mg PO DAILY PRN PRN Reason: Constipation Clonazepam (Klonopin) 0.5 mg PO BEDTIME [facility] Last Admin: 09/03/17 20:15 Dose: 0.5 mg Clonidine HCl (Catapres) 0.1 mg PO DAILY [facility] Last Admin: 09/03/17 08:03 Dose: 0.1 mg Docusate Sodium (Colace) 100 mg PO BID PRN PRN Reason: Constipation Heparin Sodium (Porcine) (Heparin Sodium) 5,000 units SUBCUT Q8H [facility] Last Admin: 09/04/17 07:00 Dose: Not Given Hydralazine HCl (Apresoline) 20 mg IVPUSH Q4H PRN PRN Reason: Hypertension Hydromorphone HCl (Dilaudid) 0.5 mg IVPUSH Q2H PRN PRN Reason: Pain (severe 7-10) Last Admin: 09/03/17 20:00 Dose: 0.5 mg Promethazine HCl 12.5 mg/ (Sodium Chloride) 50.5 mls @ 100 mls/hr IV Q6H PRN PRN Reason: Nausea/Vomiting Piperacillin Sod/Tazobactam (Sod 4.5 gm/ Sodium Chloride) 100 mls @ 25 mls/hr IV Q8H [facility] Last Admin: 09/04/17 04:32 Dose: 25 mls/hr Sodium Chloride (Normal Saline) 1,000 mls @ 150 mls/hr IV ASDIRECTED [facility] Last Admin: 09/04/17 04:31 Dose: 150 mls/hr Lisinopril (Prinivil) 20 mg PO DAILY [facility] Last Admin: 09/03/17 08:03 Dose: 20 mg Lorazepam (Ativan) 2 mg IVPUSH Q4H PRN PRN Reason: Seizures Lorazepam (Ativan) 1 mg IV Q6H PRN PRN Reason: Anxiety Magnesium Sulfate (Pharmacy To Dose - Magnesium Replacement) 1 dose .XX ASDIRECTED [facility] Metoprolol Tartrate (Lopressor) 5 mg IVPUSH Q4H PRN PRN Reason: Tachycardia Ondansetron HCl (Zofran) 4 mg IV Q6H PRN PRN Reason: Nausea/Vomiting Desvenlafaxine Succinate [Pristiq] 25 Mg 0 each PO DAILY [facility] Last Admin: 09/03/17 08:05 Dose: Not Given Lurasidone Hcl [ (Latuda] 60 Mg) 0 each PO DAILY [facility] Last Admin: 09/03/17 08:05 Dose: Not Given Polyethylene Glycol (Miralax) 17 gm PO DAILY PRN PRN Reason: Constipation Potassium Chloride (Pharmacy To Dose - Potassium Replacement) 1 dose .XX ASDIRECTED [facility] Quetiapine Fumarate (Seroquel) 300 mg PO BEDTIME [facility] Last Admin: 09/03/17 20:10 Dose: 300 mg Saccharomyces Boulardii (Florastor) 250 mg PO BID [facility] Last Admin: 09/03/17 20:14 Dose: 250 mg Senna/Docusate Sodium (Senna Plus) 1 tab PO BID PRN PRN Reason: Constipation Sucralfate (Carafate) 1 gm PO Q6H PRN PRN Reason: Abdominal Pain Last Admin: 09/03/17 04:55 Dose: 1 gm Sumatriptan Succinate (Imitrex) 6 mg SUBCUT DAILY PRN PRN Reason: Headache Temazepam (Restoril) 15 mg PO BEDTIME PRN PRN Reason: Sleep Tizanidine HCl (Zanaflex) 2 mg PO Q6H PRN PRN Reason: Spasms Discontinued Medications Acetaminophen (Tylenol) 975 mg PO NOW ONE Stop: 09/02/17 21:20 Last Admin: 09/02/17 21:26 Dose: 975 mg Al Hydroxide/Mg Hydroxide 30 (ml/ Lidocaine HCl 15 ml) 0 ml PO ONETIME ONE Stop: 09/02/17 20:27 Last Admin: 09/02/17 20:29 Dose: 45 ml Hydromorphone HCl (Dilaudid) 0.5 mg IVPUSH ONETIME ONE Stop: 09/02/17 20:49 Last Admin: 09/02/17 21:11 Dose: 0.5 mg Hydromorphone HCl (Dilaudid) 2 mg IVPUSH ONETIME ONE Stop: 09/03/17 16:45 Last Admin: 09/03/17 17:20 Dose: Not Given Hydromorphone HCl (Dilaudid) 2 mg IVPUSH ONETIME ONE Stop: 09/03/17 17:16 Hydromorphone HCl (Dilaudid) 2 mg IVPUSH ONETIME ONE Stop: 09/03/17 17:16 Last Admin: 09/03/17 17:31 Dose: Not Given Hydromorphone HCl (Dilaudid) 2 mg IVPUSH ONETIME ONE Stop: 09/03/17 17:31 Last Admin: 09/03/17 17:31 Dose: Not Given Hydromorphone HCl (Dilaudid) 2 mg IV ONETIME ONE Stop: 09/03/17 17:31 Last Admin: 09/03/17 17:28 Dose: 2 mg Hydromorphone HCl (Dilaudid) 0.5 mg IVPUSH ONETIME ONE Stop: 09/03/17 17:31 Last Admin: 09/03/17 17:32 Dose: Not Given Sodium Chloride (Normal Saline) 1,000 mls @ 250 mls/hr IV ASDIRECTED [facility] Last Admin: 09/03/17 02:23 Dose: 250 mls/hr Clindamycin Phosphate 900 mg/ (Sodium Chloride) 106 mls @ 100 mls/hr IV ONETIME ONE Stop: 06/07/18 20:36 Last Admin: 09/02/17 20:02 Dose: 100 mls/hr Vancomycin HCl 2 gm/ Sodium (Chloride) 250 mls @ 250 mls/hr IV ONETIME ONE Stop: 09/02/17 20:33 Last Admin: 09/02/17 20:04 Dose: 250 mls/hr Vancomycin HCl 2 gm/ Sodium (Chloride) 500 mls @ 250 mls/hr IV Q12H [facility] Last Admin: 09/03/17 08:58 Dose: Not Given Piperacillin Sod/Tazobactam (Sod 4.5 gm/ Sodium Chloride) 100 mls @ 200 mls/hr IV ONETIME ONE Stop: 09/02/17 22:59 Last Admin: 09/02/17 22:57 Dose: 200 mls/hr Vancomycin HCl 1.5 gm/ Sodium (Chloride) 500 mls @ 250 mls/hr IV Q12H [facility] Last Admin: 09/03/17 09:47 Dose: Not Given Vancomycin HCl 1.5 gm/ Sodium (Chloride) 500 mls @ 250 mls/hr IV Q12H [facility] Last Admin: 09/03/17 10:12 Dose: 250 mls/hr Ibuprofen (Motrin) 800 mg PO ONETIME ONE Stop: 09/02/17 19:14 Last Admin: 09/02/17 19:20 Dose: 800 mg Metoclopramide HCl (Reglan) 10 mg IVPUSH ONETIME ONE Stop: 09/02/17 20:50 Last Admin: 09/02/17 21:09 Dose: 10 mg Metoclopramide HCl (Reglan) 5 mg PO Q6H [facility] Last Admin: 09/03/17 08:03 Dose: 5 mg Potassium Chloride (Klor-Con M20) 40 meq PO Q4H [facility] Stop: 09/03/17 01:46 Last Admin: 09/03/17 02:22 Dose: 40 meq Quetiapine Fumarate (Seroquel) 300 mg PO DAILY [facility] Last Admin: 09/03/17 08:06 Dose: Not Given Vancomycin HCl (Vancomycin) 2,020.755 mg 15 mg/kg (2020.755 mg) IV Q12H [facility] Last Admin: 09/03/17 08:58 Dose: Not Given Vancomycin HCl (Pharmacy To Dose - Vancomycin) 1 dose .XX ASDIRECTED [facility] - Exam General: Alert, Oriented, No Acute Distress, Other ([place] Obese) HEENT: Pupils Equal, Pupils Reactive, EOMI, Mucous Membr. Moist/[place] Neck: Supple, Trachea Midline, No JVD, No Thyromegaly, Other (Short neck) Lungs: Clear to Auscultation, Normal Respiratory Effort Cardiovascular: Regular Rate, Regular Rhythm GI/Abdominal Exam: Normal Bowel Sounds, Soft, Non-Tender, No Organomegaly, No Distention, No Abnormal Bruit (Female) Exam: Deferred Back Exam: Normal Inspection, Decreased Range of Motion Extremities: Normal Inspection, Normal Range of Motion, Non-Tender, No Pedal Edema, Normal Capillary Refill Peripheral Pulses: 2+: Dorsalis Pedis (L), Dorsalis Pedis (R) Skin: Warm, Dry, Intact Wound/Incisions: Dressing Dry and Intact, No Drainage. No: Erythema Neurological: No New Focal Deficit. No: Normal Gait, Strength Equal Bilateral, Reflexes Equal Bilateral, Sensation Intact Psy/Mental Status: Alert, Normal Affect, Normal Mood - Problem List Review Problem List Initiated/Reviewed/Updated: Yes - My Orders Last 24 Hours: My Active Orders 09/03/17 08:30 Sodium Chloride 0.9% [Normal Saline] 1,000 ml IV ASDIRECTED 09/03/17 09:00 Lisinopril [Prinivil] 20 mg PO DAILY Patient's Own Medication [Ptom] 0 each PO DAILY Patient's Own Medication [Ptom] 0 each PO DAILY Saccharomyces Boulardii [Florastor] 250 mg PO BID cloNIDine [Catapres] 0.1 mg PO DAILY 09/03/17 12:05 Consult to Physician [CONS] Routine 09/03/17 12:06 Notify Provider Consults [RC] ASDIRECTED 09/03/17 15:54 VL Duplex Lwr Ext Veins Ltd Rt [US] Urgent 09/03/17 21:00 ClonazePAM [KlonoPIN] 0.5 mg PO BEDTIME QUEtiapine [SEROquel] 300 mg PO BEDTIME 09/03/17 21:32 tiZANidine [Zanaflex] 2 mg PO Q6H PRN 09/04/17 05:58 BASIC METABOLIC PANEL,BMP [CHEM] AM C-REACTIVE PROTEIN [CHEM] AM MAGNESIUM [CHEM] AM 09/05/17 05:11 BASIC METABOLIC PANEL,BMP [CHEM] AM C-REACTIVE PROTEIN [CHEM] AM CBC WITH AUTO DIFF [HEME] AM MAGNESIUM [CHEM] AM 09/06/17 05:11 BASIC METABOLIC PANEL,BMP [CHEM] AM C-REACTIVE PROTEIN [CHEM] AM CBC WITH AUTO DIFF [HEME] AM MAGNESIUM [CHEM] AM 09/07/17 05:11 C-REACTIVE PROTEIN [CHEM] AM MAGNESIUM [CHEM] AM - Plan Plan:: Assessment/Plan: Acute: E. coli Bacteremia - 2/2 UTI - She is Asymptomatic - Has Urinary Incontinence and UA is pos for UTI - Now afebrile w/o leukocytosis - CRP of 37--> 30.9--> no 29 - Received IV Vancomycin and IV Zosyn; will switch to IV Levaquin pending d/c - UA is sensitive to Levaquin - Repeat blood culture Right Non-Diabetic Foot Ulcer - This has been going since her last back surgery; she stumps on it and it breaks her skin on - She has been trying to see a foot doctor scheduled outpatient - Consulted Podiatry but unable to get a hold of specialist - Consulted Dr. Kaur deferred to Podiatry outpatient - Received IV Cleocin in ED x1 - Received IV Vancomycin and IV Zosyn but will d/c it - Wound culture is pos for gram positive--> has coverage with Levaquin - Bone scan revealed no osteomyelitis Acute Renal Injury/Renal Insufficiency, Improving - Baseline GFR is 43 (Stage 3 08/26/2017); now 39 - BUN 25 and CR 1.8--> BUN 13/Cr 1.4 - Will hold ACEI - Had recent GI loss form nausea and vomiting HTN - Carries a hx/o HTN - Currently receiving aggressive fluid hydration at 250 cc/hr--> KVO 15-20 cc /hr - Change Clonidin 0.1 mg po mg daily to BID and add Bumex 1 mg IVP x1 now and oral Lasix starting in AM - Continue PRN Hydralazine Right Thigh Pain/Spasm - Pin is better - Continue Pain and Anti-spastic Meds - PT/OT for conservative management Resolved: S/p Leukocytosis - WBC 15K - 2/2 Above - Treatment as above S/p Mild Hypokalemia - K 3.4--> 3.5 - Likely from inadequate intake - Replete and monitor Chronic: Impaired Vision HTN HLD, Lipid Panel:within normal limits Angioplasty Asthma GERD, Stable at this time Hiatal hernia Urinary Incontinence S/p TVH DJD [place] Cavus LBP with Sciatica S/p Surgery x2 Hx/o CVA Migraines Seizures BPD OCD PTSD Insomnia Essential Tremors Peripheral Neuropathy R>>L Morbid Obesity with BMI of 40+ Plan: She appears clinically better this morning Continue current treatment Routine AM Labs Chest x-ray for shortness of breath Continue PT/OT consult GS following Podiatry eval outpatient SW/CM for d/c planning Additional orders as above Code status: 1 D/c pending repeat blood culture
[2017-09-04] MEDS: Saccharomyces Boulardii (Probiotic) 250 MG Cap PO SCH ×2 (09:15→20:31)
[2017-09-04] MEDS: cloNIDine 0.1 MG Tab PO SCH ×2 (09:16→20:32)
[2017-09-04] MEDS: Lisinopril 20 MG Tab PO SCH (09:16)
[2017-09-04] MEDS: Lurasidone Hcl [Latuda] 60 MG PO SCH (09:17)
[2017-09-04] MEDS: Desvenlafaxine Succinate [Pristiq] 25 MG PO SCH (09:17)
--- NOTE | 2017-09-04 10:10 | PCM.CONSN ---
- General Info Date of Service: 09/04/17 Admission Dx/Problem (Free Text): Admission Diagnosis/Problem Admission Diagnosis/Problem Acute febrile illness Subjective Update: Patient had fever overnight and this morning. Patient continues to have pain in the RIGHT thigh region intermittently. She has been taking Percocet and Dilaudid PRN for pain control. She denies any pain in the RIGHT foot, especially at the RIGHT heel wound, where she lacks sensation. - Patient Data Vitals - Most Recent: Last Vital Signs Temp 36.8 C 09/04/17 07:50 Pulse 110 H 09/04/17 07:50 Resp 20 09/04/17 07:50 BP 145/73 H 09/04/17 09:16 Pulse Ox 93 L 09/04/17 07:50 Weight - Most Recent: 144.56 kg I&O - Last 24 Hours: Intake & Output 09/03/17 09/04/17 09/04/17 22:59 06:59 14:59 Intake Total 3078 1365 Output Total 200 Balance 2878 1365 Lab Results Last 24 Hours: Laboratory Results - last 24 hr 09/04/17 09/04/17 Range/Units 05:58 05:58 WBC 7.68 (3.98-10.04) K/mm3 RBC 3.75 L (3.98-5.22) M/mm3 Hgb 10.4 L (11.2-15.7) gm/L Hct 32.2 L (34.1-44.9) % MCV 85.9 (79.4-94.8) fl MCH 27.7 (25.6-32.2) pg MCHC 32.3 (32.2-35.5) g/dl RDW Std Deviation 45.5 (36.4-46.3) fL Plt Count 224 (182-369) K/mm3 MPV 11.0 (9.4-12.3) fl Neut % (Auto) 72.9 H (34.0-71.1) % Lymph % (Auto) 17.6 L (19.3-51.7) % [place] % (Auto) 7.0 (4.7-12.5) % Eos % (Auto) 1.7 (0.7-5.8) Baso % (Auto) 0.3 (0.1-1.2) % Neut # (Auto) 5.60 (1.56-6.13) K/mm3 Lymph # (Auto) 1.35 (1.18-3.74) K/mm3 Preston # (Auto) 0.54 H (0.24-0.36) K/mm3 Eos # (Auto) 0.13 (0.04-0.36) K/mm3 Baso # (Auto) 0.02 (0.01-0.08) K/mm3 Sodium 138 (136-145) mEq/L Potassium 4.1 (3.5-5.1) mEq/L Chloride 106 (98-107) mEq/L Carbon Dioxide 19 L (21-32) mEq/L Anion Gap 17.1 H (5-15) BUN 13 (7-18) mg/dL Creatinine 1.4 H (0.55-1.02) mg/dL Est Cr Clr Drug Dosing 51.94 mL/min Estimated GFR (MDRD) 39 (>60) mL/min BUN/Creatinine Ratio 9.3 L (14-18) Glucose 97 (74-106) mg/dL Calcium 7.6 L (8.5-10.1) mg/dL Magnesium 2.3 (1.8-2.4) mg/dl C-Reactive Protein 29.0 H* (<1.0) mg/dL [place] Results Last 24 Hours: Microbiology 09/02/17 19:10 Aerobic Blood Culture - Preliminary Blood - Venous - Lab Draw NO GROWTH AFTER 1 DAY Anaerobic Blood Culture - Preliminary Gram Negative Rods 09/02/17 19:00 Aerobic Blood Culture - Preliminary Blood - Venous NO GROWTH AFTER 1 DAY Anaerobic Blood Culture - Preliminary Gram Negative Rods 09/02/17 22:40 Urine Culture - Preliminary Urine, Voided Gram Negative Rods Med Orders - Current: Current Medications Acetaminophen (Tylenol) 650 mg PO Q4H PRN PRN Reason: Pain (Mild 1-3)/fever Last Admin: 09/03/17 20:53 Dose: 650 mg Hydrocodone Bitart/Acetaminophen ([place] 325-5 Mg) 1 tab PO Q4H PRN PRN Reason: Pain (moderate 4-6) Last Admin: 09/04/17 04:44 Dose: 1 tab Al Hydroxide/Mg Hydroxide (Mag-Al Plus) 30 ml PO Q4H PRN PRN Reason: Heartburn Last Admin: 09/03/17 18:12 Dose: 30 ml Albuterol/Ipratropium (Duoneb 3.0-0.5 Mg/3 Ml) 3 ml NEB Q4H PRN PRN Reason: Shortness Of Breath/wheezing Bisacodyl (Dulcolax) 5 mg PO DAILY PRN PRN Reason: Constipation Clonazepam (Klonopin) 0.5 mg PO BEDTIME [facility] Last Admin: 09/03/17 20:15 Dose: 0.5 mg Clonidine HCl (Catapres) 0.1 mg PO DAILY [facility] Last Admin: 09/04/17 09:16 Dose: 0.1 mg Docusate Sodium (Colace) 100 mg PO BID PRN PRN Reason: Constipation Heparin Sodium (Porcine) (Heparin Sodium) 5,000 units SUBCUT Q8H [facility] Last Admin: 09/04/17 07:00 Dose: Not Given Hydralazine HCl (Apresoline) 20 mg IVPUSH Q4H PRN PRN Reason: Hypertension Hydromorphone HCl (Dilaudid) 0.5 mg IVPUSH Q2H PRN PRN Reason: Pain (severe 7-10) Last Admin: 09/03/17 20:00 Dose: 0.5 mg Promethazine HCl 12.5 mg/ (Sodium Chloride) 50.5 mls @ 100 mls/hr IV Q6H PRN PRN Reason: Nausea/Vomiting Piperacillin Sod/Tazobactam (Sod 4.5 gm/ Sodium Chloride) 100 mls @ 25 mls/hr IV Q8H [facility] Last Admin: 09/04/17 04:32 Dose: 25 mls/hr Sodium Chloride (Normal Saline) 1,000 mls @ 150 mls/hr IV ASDIRECTED [facility] Last Admin: 09/04/17 04:31 Dose: 150 mls/hr Lisinopril (Prinivil) 20 mg PO DAILY [facility] Last Admin: 09/04/17 09:16 Dose: 20 mg Lorazepam (Ativan) 2 mg IVPUSH Q4H PRN PRN Reason: Seizures Lorazepam (Ativan) 1 mg IV Q6H PRN PRN Reason: Anxiety Magnesium Sulfate (Pharmacy To Dose - Magnesium Replacement) 1 dose .XX ASDIRECTED [facility] Metoprolol Tartrate (Lopressor) 5 mg IVPUSH Q4H PRN PRN Reason: Tachycardia Ondansetron HCl (Zofran) 4 mg IV Q6H PRN PRN Reason: Nausea/Vomiting Desvenlafaxine Succinate [Pristiq] 25 Mg 0 each PO DAILY [facility] Last Admin: 09/04/17 09:17 Dose: Not Given Lurasidone Hcl [ (Latuda] 60 Mg) 0 each PO DAILY [facility] Last Admin: 09/04/17 09:17 Dose: Not Given Polyethylene Glycol (Miralax) 17 gm PO DAILY PRN PRN Reason: Constipation Potassium Chloride (Pharmacy To Dose - Potassium Replacement) 1 dose .XX ASDIRECTED [facility] Quetiapine Fumarate (Seroquel) 300 mg PO BEDTIME [facility] Last Admin: 09/03/17 20:10 Dose: 300 mg Saccharomyces Boulardii (Florastor) 250 mg PO BID [facility] Last Admin: 09/04/17 09:15 Dose: 250 mg Senna/Docusate Sodium (Senna Plus) 1 tab PO BID PRN PRN Reason: Constipation Sucralfate (Carafate) 1 gm PO Q6H PRN PRN Reason: Abdominal Pain Last Admin: 09/03/17 04:55 Dose: 1 gm Sumatriptan Succinate (Imitrex) 6 mg SUBCUT DAILY PRN PRN Reason: Headache Temazepam (Restoril) 15 mg PO BEDTIME PRN PRN Reason: Sleep Tizanidine HCl (Zanaflex) 2 mg PO Q6H PRN PRN Reason: Spasms Discontinued Medications Acetaminophen (Tylenol) 975 mg PO NOW ONE Stop: 09/02/17 21:20 Last Admin: 09/02/17 21:26 Dose: 975 mg Al Hydroxide/Mg Hydroxide 30 (ml/ Lidocaine HCl 15 ml) 0 ml PO ONETIME ONE Stop: 09/02/17 20:27 Last Admin: 09/02/17 20:29 Dose: 45 ml Hydromorphone HCl (Dilaudid) 0.5 mg IVPUSH ONETIME ONE Stop: 09/02/17 20:49 Last Admin: 09/02/17 21:11 Dose: 0.5 mg Hydromorphone HCl (Dilaudid) 2 mg IVPUSH ONETIME ONE Stop: 09/03/17 16:45 Last Admin: 09/03/17 17:20 Dose: Not Given Hydromorphone HCl (Dilaudid) 2 mg IVPUSH ONETIME ONE Stop: 09/03/17 17:16 Hydromorphone HCl (Dilaudid) 2 mg IVPUSH ONETIME ONE Stop: 09/03/17 17:16 Last Admin: 09/03/17 17:31 Dose: Not Given Hydromorphone HCl (Dilaudid) 2 mg IVPUSH ONETIME ONE Stop: 09/03/17 17:31 Last Admin: 09/03/17 17:31 Dose: Not Given Hydromorphone HCl (Dilaudid) 2 mg IV ONETIME ONE Stop: 09/03/17 17:31 Last Admin: 09/03/17 17:28 Dose: 2 mg Hydromorphone HCl (Dilaudid) 0.5 mg IVPUSH ONETIME ONE Stop: 09/03/17 17:31 Last Admin: 09/03/17 17:32 Dose: Not Given Sodium Chloride (Normal Saline) 1,000 mls @ 250 mls/hr IV ASDIRECTED [facility] Last Admin: 09/03/17 02:23 Dose: 250 mls/hr Clindamycin Phosphate 900 mg/ (Sodium Chloride) 106 mls @ 100 mls/hr IV ONETIME ONE Stop: 09/02/17 20:36 Last Admin: 09/02/17 20:02 Dose: 100 mls/hr Vancomycin HCl 2 gm/ Sodium (Chloride) 250 mls @ 250 mls/hr IV ONETIME ONE Stop: 09/02/17 20:33 Last Admin: 09/02/17 20:04 Dose: 250 mls/hr Vancomycin HCl 2 gm/ Sodium (Chloride) 500 mls @ 250 mls/hr IV Q12H [facility] Last Admin: 09/03/17 08:58 Dose: Not Given Piperacillin Sod/Tazobactam (Sod 4.5 gm/ Sodium Chloride) 100 mls @ 200 mls/hr IV ONETIME ONE Stop: 09/02/17 22:59 Last Admin: 09/02/17 22:57 Dose: 200 mls/hr Vancomycin HCl 1.5 gm/ Sodium (Chloride) 500 mls @ 250 mls/hr IV Q12H [facility] Last Admin: 09/03/17 09:47 Dose: Not Given Vancomycin HCl 1.5 gm/ Sodium (Chloride) 500 mls @ 250 mls/hr IV Q12H [facility] Last Admin: 09/03/17 10:12 Dose: 250 mls/hr Ibuprofen (Motrin) 800 mg PO ONETIME ONE Stop: 09/02/17 19:14 Last Admin: 09/02/17 19:20 Dose: 800 mg Metoclopramide HCl (Reglan) 10 mg IVPUSH ONETIME ONE Stop: 09/02/17 20:50 Last Admin: 09/02/17 21:09 Dose: 10 mg Metoclopramide HCl (Reglan) 5 mg PO Q6H [facility] Last Admin: 09/03/17 08:03 Dose: 5 mg Potassium Chloride (Klor-Con M20) 40 meq PO Q4H [facility] Stop: 09/03/17 01:46 Last Admin: 09/03/17 02:22 Dose: 40 meq Quetiapine Fumarate (Seroquel) 300 mg PO DAILY [facility] Last Admin: 09/03/17 08:06 Dose: Not Given Vancomycin HCl (Vancomycin) 2,020.755 mg 15 mg/kg (2020.755 mg) IV Q12H [facility] Last Admin: 09/03/17 08:58 Dose: Not Given Vancomycin HCl (Pharmacy To Dose - Vancomycin) 1 dose .XX ASDIRECTED [facility] - Exam Extremities: Other (NO CHANGES TO THE APPEARANCE OF THE RIGHT HEEL WOUND. NO ERTYHEMA. NO WARMTH. NONTENDER.) Consult PN Assessment/Plan Procedures: Procedures ASSAY OF ACETAMINOPHEN (03/12/14) ASSAY OF CREATININE (02/15/14) ASSAY OF ETHANOL (03/12/14) ASSAY OF MAGNESIUM (12/13/14) ASSAY OF PHOSPHORUS (12/13/14) ASSAY OF SALICYLATE (03/12/14) ASSAY OF TROPONIN QUANT (08/26/17) BLOOD TYPING SEROLOGIC ABO (05/01/15) BLOOD TYPING SEROLOGIC RH(D) (05/01/15) C-REACTIVE PROTEIN (01/29/14) CHEST X-RAY 1 VIEW FRONTAL (12/13/14) COMPLETE CBC AUTOMATED (05/01/15) COMPLETE CBC W/AUTO DIFF WBC (08/26/17) COMPREHEN METABOLIC PANEL (08/26/17) CREATINE MB FRACTION (01/29/14) CT HEAD/BRAIN W/O DYE (07/13/14) CT NECK SPINE W/O DYE (07/13/14) ELECTROCARDIOGRAM TRACING (08/26/17) EMERGENCY DEPT VISIT (08/26/17) EMERGENCY DEPT VISIT (06/27/17) EMERGENCY DEPT VISIT (12/13/14) EMERGENCY DEPT VISIT (08/01/14) EMERGENCY DEPT VISIT (03/12/14) EMERGENCY DEPT VISIT (01/22/14) FIBRIN DEGRADATION QUANT (08/26/17) HELICOBACTER PYLORI ANTIBODY (08/26/17) HYDRATE IV INFUSION ADD-ON (03/12/14) HYDRATION IV INFUSION INIT (03/12/14) METABOLIC PANEL TOTAL CA (05/01/15) MRI LUMBAR SPINE W/O & W/DYE (02/15/14) POLYSOM 6/> YRS 4/> KEYSHAWN (03/14/15) RBC ANTIBODY SCREEN (05/01/15) ROUTINE VENIPUNCTURE (08/26/17) THER/PROPH/DIAG INJ IV PUSH (05/01/15) THER/PROPH/DIAG INJ SC/IM (06/27/17) TISSUE EXAM BY PATHOLOGIST (05/01/15) TX/PRO/DX INJ NEW DRUG ADDON (06/04/14) TX/PRO/DX INJ SAME DRUG TRACK WELDER (05/01/15) URINALYSIS AUTO W/SCOPE (08/01/14) VAGINAL HYSTERECTOMY (05/01/15) X-RAY EXAM CHEST 1 VIEW (08/26/17) X-RAY EXAM OF ANKLE (07/13/14) X-RAY EXAM OF HIP (07/13/14) X-RAY EXAM OF HUMERUS (07/13/14) X-RAY EXAM OF PELVIS (07/13/14) Problem List Initiated/Reviewed/Updated: Yes Plan: 52 yo female, h/o multiple medical problems, including peripheral neuropathy ( from multiple back surgeries almost 20 years ago) and RIGHT foot chronic wound, bipolar disorder, obesity, CKD, GERD, admitted on the hospitalist service ( [id number]) with gram negative bacteremia, with also gram negative rods seen in her urine culture. Patient also with a chronic RIGHT foot wound. - I don't believe the RIGHT foot wound is related to her bacteremia. Likely UTI as source. Will follow-up on final cultures results. - No indication for urgent wound debridement at this time. - Recommend Podiatry consultation to evaluate the RIGHT heel. Rogelio Mendoza M.D., F.A.C.S. General Surgery Pager: [phone]
[2017-09-04] MEDS: Acetaminophen 325 MG Tab PO PRN ×2 (11:51→17:07)
[2017-09-04] MEDS: tiZANidine 4 MG Tab PO PRN (11:52)
[2017-09-04] MEDS: hydrALAZINE 20 MG/ML SDV IVPUSH PRN ×2 (16:11→20:50)
[2017-09-04] MEDS ORDERED: Levofloxacin/Dextrose 5%-Water 500 MG in Premix Bag 1 BAG IV ONE (17:35)
[2017-09-04] MEDS ORDERED: Bumetanide 1 MG/4 ML MDV IVPUSH ONE (17:41)
[2017-09-04] MEDS ORDERED: Sodium Chloride 0.9% 1,000 ML IV SCH (18:00)
[2017-09-04] MEDS: SUMAtriptan 6 MG/0.5 ML SDV SUBCUT PRN (20:29)
[2017-09-04] MEDS: QUEtiapine 100 MG Tab PO SCH (20:34)
[2017-09-04] MEDS: ClonazePAM 0.5 MG Tab PO SCH (20:37)
[2017-09-04] MEDS ORDERED: Metoprolol Tartrate 50 MG Tab PO ONE (23:26)
[2017-09-05] MEDS: Sodium Chloride 0.9% 250 ML IV SCH ×2 (00:45→01:38)
[2017-09-05] MEDS ORDERED: Iopamidol 755 MG/ML 50 ML Bottle IVPUSH ONE (00:56)
[2017-09-05] MEDS ORDERED: Iopamidol 755 Mg/ML 100 ML Bottle IVPUSH ONE (00:56)
[2017-09-05] MEDS ORDERED: Sodium Chloride 0.9% 10 ML Syringe FLUSH PRN (00:56)
[2017-09-05] MEDS ORDERED: Sodium Chloride 0.9% 100 ML IV SCH (01:00)
[2017-09-05] MEDS: Acetaminophen 325 MG Tab PO PRN ×3 (01:45→20:59)
[2017-09-05] MEDS: Heparin Sodium 5,000 Units/ML Vial SUBCUT SCH ×3 (05:02→21:00)
--- NOTE | 2017-09-05 06:45 | PCM.PN ---
- General Info Date of Service: 09/05/17 Admission Dx/Problem (Free Text): Admission Diagnosis/Problem Admission Diagnosis/Problem Acute febrile illness Subjective Update: Follow Up Functional Status: Reports: Pain Controlled, Tolerating Diet, Urinating - Review of Systems General: Reports: Weakness (baseline weakness). Denies: Fever, Fatigue, Malaise , Chills HEENT: Reports: No Symptoms Pulmonary: Reports: Shortness of Breath (intermittent-recently new for her). Denies: Cough Cardiovascular: Denies: Chest Pain, Palpitations, Dyspnea on Exertion, Lightheadedness Gastrointestinal: Reports: Other (no pyrosis). Denies: Abdominal Pain, Constipation, Decreased Appetite, Diarrhea, Difficulty Swallowing, Nausea, Vomiting Genitourinary: Reports: No Symptoms Musculoskeletal: Reports: Leg Pain (right leg with 1/10 pain scale ) Skin: Denies: Cyanosis, Mottled, Pallor, Diaphoresis Neurological: Reports: Difficulty Walking, Weakness, Gait Disturbance. Denies: Confusion Psychiatric: Denies: Depression, Anxiety, Agitation, Hallucinations Systems Review Comment:: She was febrile and tachycardic last night with HRs in the low hundreds to 120s. She was asymptomatic however. Her D-dimer was markedly elevated at 3.90 but her chest CTA was negative for PE. She did respond to rate control medication and so far her HRs have been mostly controlled. She remains w/o leukocytosis and now afebrile. Her vitals area stable and she appears comfortable sitting up in chair. Her renal function continues to improve and her most recent CRP is now at 22.6. She reports no new complaints. - Patient Data Vitals - Most Recent: Last Vital Signs Temp 36.4 C 09/05/17 04:44 Pulse 87 09/05/17 04:44 Resp 18 09/05/17 04:44 BP 139/71 09/05/17 04:44 Pulse Ox 93 L 09/05/17 04:44 Weight - Most Recent: 140.75 kg I&O - Last 24 Hours: Intake & Output 09/04/17 09/04/17 09/05/17 14:59 22:59 06:59 Intake Total 120 2349 300 Output Total 200 Balance 120 2149 300 Lab Results Last 24 Hours: Laboratory Results - last 24 hr 09/04/17 09/04/17 09/05/17 Range/Units 05:58 23:47 05:34 WBC 7.83 (3.98-10.04) K/mm3 RBC 3.75 L (3.98-5.22) M/mm3 Hgb 10.3 L (11.2-15.7) gm/L Hct 31.9 L (34.1-44.9) % MCV 85.1 (79.4-94.8) fl MCH 27.5 (25.6-32.2) pg MCHC 32.3 (32.2-35.5) g/dl RDW Std Deviation 45.2 (36.4-46.3) fL Plt Count 262 (182-369) K/mm3 MPV 10.5 (9.4-12.3) fl Neut % (Auto) 64.9 (34.0-71.1) % Lymph % (Auto) 24.5 (19.3-51.7) % [place] % (Auto) 8.4 (4.7-12.5) % Eos % (Auto) 0.8 (0.7-5.8) Baso % (Auto) 0.3 (0.1-1.2) % Neut # (Auto) 5.08 (1.56-6.13) K/mm3 Lymph # (Auto) 1.92 (1.18-3.74) K/mm3 [place] # (Auto) 0.66 H (0.24-0.36) K/mm3 Eos # (Auto) 0.06 (0.04-0.36) K/mm3 Baso # (Auto) 0.02 (0.01-0.08) K/mm3 D-Dimer, Quantitative 3.90 H (0.19-0.50) mg/L Sodium 138 (136-145) mEq/L Potassium 4.1 (3.5-5.1) mEq/L Chloride 106 (98-107) mEq/L Carbon Dioxide 19 L (21-32) mEq/L Anion Gap 17.1 H (5-15) BUN 13 (7-18) mg/dL Creatinine 1.4 H (0.55-1.02) mg/dL Est Cr Clr Drug Dosing 51.94 mL/min Estimated GFR (MDRD) 39 (>60) mL/min BUN/Creatinine Ratio 9.3 L (14-18) Glucose 97 (74-106) mg/dL Calcium 7.6 L (8.5-10.1) mg/dL Magnesium 2.3 (1.8-2.4) mg/dl C-Reactive Protein 29.0 H* (<1.0) mg/dL [place]on Results Last 24 Hours: Microbiology 09/02/17 19:10 Aerobic Blood Culture - Preliminary Blood - Venous - Lab Draw NO GROWTH AFTER 2 DAYS Anaerobic Blood Culture - Preliminary Gram Negative Rods 09/02/17 19:00 Aerobic Blood Culture - Preliminary Blood - Venous NO GROWTH AFTER 2 DAYS Anaerobic Blood Culture - Preliminary Gram Negative Rods 09/02/17 22:50 Wound Culture - Preliminary Foot, Right Staphylococcus Aureus 09/02/17 22:40 Urine Culture - Final Urine, Voided Escherichia Coli Med Orders - Current: Current Medications Acetaminophen (Tylenol) 650 mg PO Q4H PRN PRN Reason: Pain (Mild 1-3)/fever Last Admin: 09/05/17 01:45 Dose: 650 mg Hydrocodone Bitart/Acetaminophen ([facility] 325-5 Mg) 1 tab PO Q4H PRN PRN Reason: Pain (moderate 4-6) Last Admin: 09/04/17 16:58 Dose: 1 tab Al Hydroxide/Mg Hydroxide (Mag-Al Plus) 30 ml PO Q4H PRN PRN Reason: Heartburn Last Admin: 09/03/17 18:12 Dose: 30 ml Albuterol/Ipratropium (Duoneb 3.0-0.5 Mg/3 Ml) 3 ml NEB Q4H PRN PRN Reason: Shortness Of Breath/wheezing Bisacodyl (Dulcolax) 5 mg PO DAILY PRN PRN Reason: Constipation Clonazepam (Klonopin) 0.5 mg PO BEDTIME [facility] Last Admin: 09/04/17 20:37 Dose: 0.5 mg Clonidine HCl (Catapres) 0.1 mg PO BID [facility] Last Admin: 09/04/17 20:32 Dose: 0.1 mg Docusate Sodium (Colace) 100 mg PO BID PRN PRN Reason: Constipation Last Admin: 09/04/17 18:09 Dose: 100 mg Furosemide (Lasix) 40 mg PO DAILY [facility] Heparin Sodium (Porcine) (Heparin Sodium) 5,000 units SUBCUT Q8H [facility] Last Admin: 09/05/17 05:02 Dose: 5,000 units Hydralazine HCl (Apresoline) 20 mg IVPUSH Q4H PRN PRN Reason: Hypertension Last Admin: 09/04/17 20:50 Dose: 20 mg Hydromorphone HCl (Dilaudid) 0.5 mg IVPUSH Q2H PRN PRN Reason: Pain (severe 7-10) Last Admin: 09/03/17 20:00 Dose: 0.5 mg Promethazine HCl 12.5 mg/ (Sodium Chloride) 50.5 mls @ 100 mls/hr IV Q6H PRN PRN Reason: Nausea/Vomiting Sodium Chloride (Normal Saline) 1,000 mls @ 20 mls/hr IV ASDIRECTED [facility] Stop: 09/08/17 17:54 Last Admin: 09/04/17 20:37 Dose: 20 mls/hr Levofloxacin/Dextrose 500 mg/ (Premix) 100 mls @ 100 mls/hr IV Q24H [facility] Sodium Chloride (Normal Saline) 100 mls @ 65 mls/hr IV ASDIRECTED [facility] Stop: 09/06/19 06:00 Last Admin: 09/05/17 01:30 Dose: 65 mls/hr Lisinopril (Prinivil) 20 mg PO DAILY [facility] Last Admin: 09/04/17 09:16 Dose: 20 mg Lorazepam (Ativan) 2 mg IVPUSH Q4H PRN PRN Reason: Seizures Lorazepam (Ativan) 1 mg IV Q6H PRN PRN Reason: Anxiety Magnesium Sulfate (Pharmacy To Dose - Magnesium Replacement) 1 dose .XX ASDIRECTED [facility] Metoprolol Tartrate (Lopressor) 5 mg IVPUSH Q4H PRN PRN Reason: Tachycardia Last Admin: 09/04/17 17:07 Dose: 5 mg Metoprolol Tartrate (Lopressor) 25 mg PO Q12HR [facility] Ondansetron HCl (Zofran) 4 mg IV Q6H PRN PRN Reason: Nausea/Vomiting Desvenlafaxine Succinate [Pristiq] 25 Mg 0 each PO DAILY [facility] Last Admin: 09/04/17 09:17 Dose: Not Given Lurasidone Hcl [ (Latuda] 60 Mg) 0 each PO DAILY [facility] Last Admin: 09/04/17 09:17 Dose: Not Given Polyethylene Glycol (Miralax) 17 gm PO DAILY PRN PRN Reason: Constipation Potassium Chloride (Pharmacy To Dose - Potassium Replacement) 1 dose .XX ASDIRECTED [facility] Quetiapine Fumarate (Seroquel) 300 mg PO BEDTIME [facility] Last Admin: 09/04/17 20:34 Dose: 300 mg Saccharomyces Boulardii (Florastor) 250 mg PO BID [facility] Last Admin: 09/04/17 20:31 Dose: 250 mg Senna/Docusate Sodium (Senna Plus) 1 tab PO BID PRN PRN Reason: Constipation Sodium Chloride (Saline Flush) 10 ml FLUSH ONETIME PRN PRN Reason: IV FLUSH Last Admin: 09/05/17 01:30 Dose: 10 ml Sucralfate (Carafate) 1 gm PO Q6H PRN PRN Reason: Abdominal Pain Last Admin: 09/03/17 04:55 Dose: 1 gm Sumatriptan Succinate (Imitrex) 6 mg SUBCUT DAILY PRN PRN Reason: Headache Last Admin: 09/04/17 20:29 Dose: 6 mg Temazepam (Restoril) 15 mg PO BEDTIME PRN PRN Reason: Sleep Tizanidine HCl (Zanaflex) 2 mg PO Q6H PRN PRN Reason: Spasms Last Admin: 09/04/17 11:52 Dose: 2 mg Discontinued Medications Acetaminophen (Tylenol) 975 mg PO NOW ONE Stop: 09/02/17 21:20 Last Admin: 09/02/17 21:26 Dose: 975 mg Bumetanide (Bumex) 1 mg IVPUSH ONETIME ONE Stop: 09/04/17 17:42 Last Admin: 09/04/17 18:09 Dose: 1 mg Clonidine HCl (Catapres) 0.1 mg PO DAILY [facility] Last Admin: 09/04/17 09:16 Dose: 0.1 mg Al Hydroxide/Mg Hydroxide 30 (ml/ Lidocaine HCl 15 ml) 0 ml PO ONETIME ONE Stop: 09/02/17 20:27 Last Admin: 09/02/17 20:29 Dose: 45 ml Hydromorphone HCl (Dilaudid) 0.5 mg IVPUSH ONETIME ONE Stop: 09/02/17 20:49 Last Admin: 09/02/17 21:11 Dose: 0.5 mg Hydromorphone HCl (Dilaudid) 2 mg IVPUSH ONETIME ONE Stop: 09/03/17 16:45 Last Admin: 09/03/17 17:20 Dose: Not Given Hydromorphone HCl (Dilaudid) 2 mg IVPUSH ONETIME ONE Stop: 09/03/17 17:16 Hydromorphone HCl (Dilaudid) 2 mg IVPUSH ONETIME ONE Stop: 09/03/17 17:16 Last Admin: 09/03/17 17:31 Dose: Not Given Hydromorphone HCl (Dilaudid) 2 mg IVPUSH ONETIME ONE Stop: 09/03/17 17:31 Last Admin: 09/03/17 17:31 Dose: Not Given Hydromorphone HCl (Dilaudid) 2 mg IV ONETIME ONE Stop: 09/03/17 17:31 Last Admin: 09/03/17 17:28 Dose: 2 mg Hydromorphone HCl (Dilaudid) 0.5 mg IVPUSH ONETIME ONE Stop: 09/03/17 17:31 Last Admin: 09/03/17 17:32 Dose: Not Given Sodium Chloride (Normal Saline) 1,000 mls @ 250 mls/hr IV ASDIRECTED [facility] Last Admin: 09/03/17 02:23 Dose: 250 mls/hr Clindamycin Phosphate 900 mg/ (Sodium Chloride) 106 mls @ 100 mls/hr IV ONETIME ONE Stop: 09/02/17 20:36 Last Admin: 09/02/17 20:02 Dose: 100 mls/hr Vancomycin HCl 2 gm/ Sodium (Chloride) 250 mls @ 250 mls/hr IV ONETIME ONE Stop: 09/02/17 20:33 Last Admin: 09/02/17 20:04 Dose: 250 mls/hr Piperacillin Sod/Tazobactam (Sod 4.5 gm/ Sodium Chloride) 100 mls @ 25 mls/hr IV Q8H [facility] Last Admin: 09/04/17 11:38 Dose: 25 mls/hr Vancomycin HCl 2 gm/ Sodium (Chloride) 500 mls @ 250 mls/hr IV Q12H [facility] Last Admin: 09/03/17 08:58 Dose: Not Given Piperacillin Sod/Tazobactam (Sod 4.5 gm/ Sodium Chloride) 100 mls @ 200 mls/hr IV ONETIME ONE Stop: 09/02/17 22:59 Last Admin: 09/02/17 22:57 Dose: 200 mls/hr Vancomycin HCl 1.5 gm/ Sodium (Chloride) 500 mls @ 250 mls/hr IV Q12H [facility] Last Admin: 09/03/17 09:47 Dose: Not Given Vancomycin HCl 1.5 gm/ Sodium (Chloride) 500 mls @ 250 mls/hr IV Q12H [facility] Last Admin: 09/03/17 10:12 Dose: 250 mls/hr Sodium Chloride (Normal Saline) 1,000 mls @ 150 mls/hr IV ASDIRECTED [facility] Last Admin: 09/04/17 11:38 Dose: 150 mls/hr Levofloxacin/Dextrose 500 mg/ (Premix) 100 mls @ 100 mls/hr IV ONETIME ONE Stop: 09/04/17 18:34 Last Admin: 09/04/17 18:09 Dose: 100 mls/hr Levofloxacin/Dextrose 500 mg/ (Premix) 100 mls @ 100 mls/hr IV Q24H [facility] Sodium Chloride (Normal Saline) 250 mls @ 999 mls/hr IV ASDIRECTED [facility] Stop: 09/05/17 06:00 Last Admin: 09/05/17 01:38 Dose: 999 mls/hr Ibuprofen (Motrin) 800 mg PO ONETIME ONE Stop: 09/02/17 19:14 Last Admin: 09/02/17 19:20 Dose: 800 mg Iopamidol (Isovue-370 (76%)) 100 ml IVPUSH ONETIME ONE Stop: 09/05/17 00:57 Last Admin: 09/05/17 01:30 Dose: 100 ml Iopamidol (Isovue-370 (76%)) 50 ml IVPUSH ONETIME ONE Stop: 09/05/17 00:57 Last Admin: 09/05/17 01:30 Dose: 50 ml Metoclopramide HCl (Reglan) 10 mg IVPUSH ONETIME ONE Stop: 09/02/17 20:50 Last Admin: 09/02/17 21:09 Dose: 10 mg Metoclopramide HCl (Reglan) 5 mg PO Q6H [facility] Last Admin: 09/03/17 08:03 Dose: 5 mg Metoprolol Tartrate (Lopressor) 50 mg PO ONETIME ONE Stop: 09/04/17 23:27 Last Admin: 09/04/17 23:41 Dose: 50 mg Potassium Chloride (Klor-Con M20) 40 meq PO Q4H [facility] Stop: 09/03/17 01:46 Last Admin: 09/03/17 02:22 Dose: 40 meq Quetiapine Fumarate (Seroquel) 300 mg PO DAILY [facility] Last Admin: 09/03/17 08:06 Dose: Not Given Vancomycin HCl (Vancomycin) 2,020.755 mg 15 mg/kg (2020.755 mg) IV Q12H [facility] Last Admin: 09/03/17 08:58 Dose: Not Given Vancomycin HCl (Pharmacy To Dose - Vancomycin) 1 dose .XX ASDIRECTED [facility] - Exam General: Alert, Oriented, Cooperative, No Acute Distress, Other (Morbidly Obese) HEENT: Pupils Equal, Pupils Reactive, EOMI, Mucous Membr. Moist/[place] Neck: Supple, Trachea Midline, No JVD, No Thyromegaly Lungs: Normal Respiratory Effort, Decreased Breath Sounds Cardiovascular: Regular Rate, Regular Rhythm GI/Abdominal Exam: Normal Bowel Sounds, Soft, Non-Tender, No Organomegaly, No Distention, No Abnormal Bruit, No Mass, Other (Obese) (Female) Exam: Deferred Back Exam: Normal Inspection, Decreased Range of Motion, Vertebral Tenderness Extremities: Normal Inspection (left lower extremity), Normal Range of Motion, Non-Tender, No Pedal Edema, Normal Capillary Refill Peripheral Pulses: 2+: Dorsalis Pedis (L), Dorsalis Pedis (R) Skin: Warm, Dry, Intact Wound/Incisions: No Drainage, Other (deep fissure ulcer on right posterior heel - no changes) Neurological: No New Focal Deficit. No: Normal Gait Psy/Mental Status: Alert, Normal Affect, Normal Mood - Problem List Review Problem List Initiated/Reviewed/Updated: Yes - My Orders Last 24 Hours: My Active Orders 09/04/17 17:19 Heart Failure Education [OM.PC] Routine 09/04/17 18:00 Sodium Chloride 0.9% [Normal Saline] 1,000 ml IV ASDIRECTED 09/04/17 18:10 Chest 1V Frontal [CR] Routine 09/04/17 20:00 Blood Culture x2 Reflex Set [OM.PC] ONETIME 09/04/17 20:05 CULTURE BLOOD [BC] Routine 09/04/17 20:20 CULTURE BLOOD [BC] Routine 09/04/17 21:00 cloNIDine [Catapres] 0.1 mg PO BID 09/04/17 23:02 EKG 12 Lead [EK] Stat 09/05/17 00:45 CTA Chest W WO Contrast [Ang Chest] [CT] Urgent 09/05/17 00:56 Sodium Chloride 0.9% [Saline Flush] 10 ml FLUSH ONETIME PRN 09/05/17 01:00 Sodium Chloride 0.9% [Normal Saline] 100 ml IV ASDIRECTED 09/05/17 01:48 Communication Order [RC] ROUTINE 09/05/17 05:34 BASIC METABOLIC PANEL,BMP [CHEM] AM C-REACTIVE PROTEIN [CHEM] AM MAGNESIUM [CHEM] AM 09/05/17 09:00 Furosemide [Lasix] 40 mg PO DAILY Metoprolol Tartrate [Lopressor] 25 mg PO Q12HR 09/05/17 16:00 Levofloxacin/Dextrose 5%-Water [Levaquin in D5W 500 MG/100 ML] 500 mg Premix Bag 1 bag IV Q24H 09/05/17 Breakfast Heart Healthy Diet [DIET] 09/05/17 Dinner Fluid Restriction [DIET] 09/06/17 05:11 BASIC METABOLIC PANEL,BMP [CHEM] AM C-REACTIVE PROTEIN [CHEM] AM CBC WITH AUTO DIFF [HEME] AM MAGNESIUM [CHEM] AM 09/07/17 05:11 C-REACTIVE PROTEIN [CHEM] AM MAGNESIUM [CHEM] AM - Plan Plan:: Assessment/Plan: Acute: E. coli Bacteremia - 2/2 UTI - She was Asymptomatic - Has Urinary Incontinence and UA is pos for UTI - Afebrile w/o leukocytosis - CRP of 37--> 30.9--> 29 --> now 22.6 - Received IV Vancomycin and IV Zosyn; Continue IV Levaquin Daily - UA is sensitive to Levaquin - Pending Repeat blood culture Right Non-Diabetic Foot Ulcer, Stable - This has been going since her last back surgery; she stumps on it and it breaks her skin on - She has been trying to see a foot doctor scheduled outpatient - Consulted Podiatry but unable to get a hold of specialist; defer further eval outpatient - Consulted Dr. Kaur deferred to Podiatry outpatient - Received IV Cleocin in ED x1 - Received IV Vancomycin and IV Zosyn but will d/c it - Wound culture is pos for gram positive--> has coverage with Levaquin - Bone scan revealed no osteomyelitis Acute Renal Injury/Renal Insufficiency, Continues to Improve - Baseline GFR is 43 (Stage 3 08/26/2017); now 43 - BUN 25 and CR 1.8--> BUN 13/Cr 1.4--> BUN 12/Cr 1.3 - Continue to hold ACEI - Had recent GI loss form nausea and vomiting HTN, Improved - Carries a hx/o HTN - Currently receiving aggressive fluid hydration at 250 cc/hr--> KVO 15-20 cc /hr - Continue Clonidin 0.1 mg po BID, Lasix 60 mg po Daily and PRN IV Hydralazine Right Thigh Pain/Spasm, Significantly Improved - Pain is now 04/07 - Continue Pain and Anti-spastic Meds - PT/OT for conservative management Elevated D-Dimer - CTA ruled out PE - Continue Heparin 5000 units SubQ TID for DVT prophylaxis CTA Additional Findings: abnormal findings discussed with patients at bedside - Subtle patchy areas of perihilar infiltrate: Pulmonary fibrosis vs CHF - Small Bilateral Pleural Effusions - Small Pericardial Effusion Resolved: S/p Leukocytosis - WBC 15K - 2/2 Above - Treatment as above S/p Mild Hypokalemia - K 3.4--> 3.5 - Likely from inadequate intake - Replete and monitor S/p Sinus Tachycardia - Likely 2/2 Bacteremia - EKG and Telemetry both show sinus tachycardia - Received rate control medications - Has PRN IV Metoprolol Chronic: Impaired Vision HTN HLD, Lipid Panel:within normal limits Angioplasty Asthma GERD, Stable at this time Hiatal hernia Urinary Incontinence S/p TVH DJD [place] Cavus LBP with Sciatica S/p Surgery x2 Hx/o CVA Migraines Seizures BPD OCD PTSD Insomnia Essential Tremors Peripheral Neuropathy R>>L Morbid Obesity with BMI of 40+ Plan: She is clinically stable Continue current treatment Routine AM Labs Continue PT/OT consult GS following 2D echo in AM for baseline and to r/o undiagnosed HF Podiatry eval outpatient SW/CM for d/c planning Additional orders as above Code status: 1 LOS anticipate > 96 hrs pending results of repeat blood culture
[2017-09-05] MEDS: cloNIDine 0.1 MG Tab PO SCH ×2 (08:39→20:23)
[2017-09-05] MEDS: Saccharomyces Boulardii (Probiotic) 250 MG Cap PO SCH ×2 (08:39→20:22)
[2017-09-05] MEDS: Metoprolol Tartrate 25 MG Tab PO SCH ×2 (08:40→20:20)
[2017-09-05] MEDS: Furosemide 40 MG Tab PO SCH (08:40)
[2017-09-05] MEDS: Lurasidone Hcl [Latuda] 60 MG PO SCH (09:15)
[2017-09-05] MEDS: Desvenlafaxine Succinate [Pristiq] 25 MG PO SCH (09:15)
--- NOTE | 2017-09-05 10:41 | PCM.CONSN ---
- General Info Date of Service: 09/05/17 Subjective Update: Overnight, patient had cardiac issues with elevated HR and dypsnea, which prompted further work-up, including a chest CT scan. Patient reports resolution of RIGHT thigh pain. No fevers today. - Patient Data Vitals - Most Recent: Last Vital Signs Temp 37.3 C 09/05/17 08:36 Pulse 85 09/05/17 08:40 Resp 20 09/05/17 08:36 BP 131/77 09/05/17 08:40 Pulse Ox 96 09/05/17 08:36 Weight - Most Recent: 140.75 kg I&O - Last 24 Hours: Intake & Output 09/04/17 09/05/17 09/05/17 22:59 06:59 14:59 Intake Total 2349 1088 Output Total 200 Balance 2149 1088 Lab Results Last 24 Hours: Laboratory Results - last 24 hr 09/04/17 09/05/17 09/05/17 Range/Units 23:47 05:34 05:34 WBC 7.83 (3.98-10.04) K/mm3 RBC 3.75 L (3.98-5.22) M/mm3 Hgb 10.3 L (11.2-15.7) gm/L Hct 31.9 L (34.1-44.9) % MCV 85.1 (79.4-94.8) fl MCH 27.5 (25.6-32.2) pg MCHC 32.3 (32.2-35.5) g/dl RDW Std Deviation 45.2 (36.4-46.3) fL Plt Count 262 (182-369) K/mm3 MPV 10.5 (9.4-12.3) fl Neut % (Auto) 64.9 (34.0-71.1) % Lymph % (Auto) 24.5 (19.3-51.7) % Divide % (Auto) 8.4 (4.7-12.5) % Eos % (Auto) 0.8 (0.7-5.8) Baso % (Auto) 0.3 (0.1-1.2) % Neut # (Auto) 5.08 (1.56-6.13) K/mm3 Lymph # (Auto) 1.92 (1.18-3.74) K/mm3 Divide # (Auto) 0.66 H (0.24-0.36) K/mm3 Eos # (Auto) 0.06 (0.04-0.36) K/mm3 Baso # (Auto) 0.02 (0.01-0.08) K/mm3 D-Dimer, Quantitative 3.90 H (0.19-0.50) mg/L Sodium 140 (136-145) mEq/L Potassium 3.7 (3.5-5.1) mEq/L Chloride 107 (98-107) mEq/L Carbon Dioxide 21 (21-32) mEq/L Anion Gap 15.7 H (5-15) BUN 12 (7-18) mg/dL Creatinine 1.3 H (0.55-1.02) mg/dL Est Cr Clr Drug Dosing 55.94 mL/min Estimated GFR (MDRD) 43 (>60) mL/min BUN/Creatinine Ratio 9.2 L (14-18) Glucose 94 (74-106) mg/dL Calcium 8.1 L (8.5-10.1) mg/dL Magnesium 2.3 (1.8-2.4) mg/dl C-Reactive Protein 22.6 H* (<1.0) mg/dL Davon Results Last 24 Hours: Microbiology 09/02/17 19:00 Aerobic Blood Culture - Preliminary Blood - Venous NO GROWTH AFTER 2 DAYS Anaerobic Blood Culture - Preliminary Gram Negative Rods 09/02/17 19:10 Aerobic Blood Culture - Preliminary Blood - Venous - Lab Draw NO GROWTH AFTER 2 DAYS Anaerobic Blood Culture - Preliminary Escherichia Coli 09/02/17 22:50 Wound Culture - Preliminary Foot, Right Staphylococcus Aureus 09/02/17 22:40 Urine Culture - Final Urine, Voided Escherichia Coli Med Orders - Current: Current Medications Acetaminophen (Tylenol) 650 mg PO Q4H PRN PRN Reason: Pain (Mild 1-3)/fever Last Admin: 09/05/17 01:45 Dose: 650 mg Hydrocodone Bitart/Acetaminophen ([place] 325-5 Mg) 1 tab PO Q4H PRN PRN Reason: Pain (moderate 4-6) Last Admin: 09/04/17 16:58 Dose: 1 tab Al Hydroxide/Mg Hydroxide (Mag-Al Plus) 30 ml PO Q4H PRN PRN Reason: Heartburn Last Admin: 09/03/17 18:12 Dose: 30 ml Albuterol/Ipratropium (Duoneb 3.0-0.5 Mg/3 Ml) 3 ml NEB Q4H PRN PRN Reason: Shortness Of Breath/wheezing Bisacodyl (Dulcolax) 5 mg PO DAILY PRN PRN Reason: Constipation Clonazepam (Klonopin) 0.5 mg PO BEDTIME [facility] Last Admin: 09/04/17 20:37 Dose: 0.5 mg Clonidine HCl (Catapres) 0.1 mg PO BID [facility] Last Admin: 09/05/17 08:39 Dose: 0.1 mg Docusate Sodium (Colace) 100 mg PO BID PRN PRN Reason: Constipation Last Admin: 09/04/17 18:09 Dose: 100 mg Furosemide (Lasix) 40 mg PO DAILY [facility] Last Admin: 09/05/17 08:40 Dose: 40 mg Heparin Sodium (Porcine) (Heparin Sodium) 5,000 units SUBCUT Q8H [facility] Last Admin: 09/05/17 05:02 Dose: 5,000 units Hydralazine HCl (Apresoline) 20 mg IVPUSH Q4H PRN PRN Reason: Hypertension Last Admin: 09/04/17 20:50 Dose: 20 mg Hydromorphone HCl (Dilaudid) 0.5 mg IVPUSH Q2H PRN PRN Reason: Pain (severe 7-10) Last Admin: 09/03/17 20:00 Dose: 0.5 mg Promethazine HCl 12.5 mg/ (Sodium Chloride) 50.5 mls @ 100 mls/hr IV Q6H PRN PRN Reason: Nausea/Vomiting Sodium Chloride (Normal Saline) 1,000 mls @ 20 mls/hr IV ASDIRECTED [facility] Stop: 09/08/17 17:54 Last Admin: 09/04/17 20:37 Dose: 20 mls/hr Levofloxacin/Dextrose 500 mg/ (Premix) 100 mls @ 100 mls/hr IV Q24H [facility] Lisinopril (Prinivil) 20 mg PO DAILY [facility] Last Admin: 09/04/17 09:16 Dose: 20 mg Lorazepam (Ativan) 2 mg IVPUSH Q4H PRN PRN Reason: Seizures Lorazepam (Ativan) 1 mg IV Q6H PRN PRN Reason: Anxiety Magnesium Sulfate (Pharmacy To Dose - Magnesium Replacement) 1 dose .XX ASDIRECTED [facility] Metoprolol Tartrate (Lopressor) 5 mg IVPUSH Q4H PRN PRN Reason: Tachycardia Last Admin: 09/04/17 17:07 Dose: 5 mg Metoprolol Tartrate (Lopressor) 25 mg PO Q12HR [facility] Last Admin: 09/05/17 08:40 Dose: 25 mg Ondansetron HCl (Zofran) 4 mg IV Q6H PRN PRN Reason: Nausea/Vomiting Desvenlafaxine Succinate [Pristiq] 25 Mg 0 each PO DAILY [facility] Last Admin: 09/05/17 09:15 Dose: Not Given Lurasidone Hcl [ (Latuda] 60 Mg) 0 each PO DAILY [facility] Last Admin: 09/05/17 09:15 Dose: Not Given Polyethylene Glycol (Miralax) 17 gm PO DAILY PRN PRN Reason: Constipation Potassium Chloride (Pharmacy To Dose - Potassium Replacement) 1 dose .XX ASDIRECTED [facility] Quetiapine Fumarate (Seroquel) 300 mg PO BEDTIME [facility] Last Admin: 09/04/17 20:34 Dose: 300 mg Saccharomyces Boulardii (Florastor) 250 mg PO BID [facility] Last Admin: 09/05/17 08:39 Dose: 250 mg Senna/Docusate Sodium (Senna Plus) 1 tab PO BID PRN PRN Reason: Constipation Sodium Chloride (Saline Flush) 10 ml FLUSH ONETIME PRN PRN Reason: IV FLUSH Last Admin: 09/05/17 01:30 Dose: 10 ml Sucralfate (Carafate) 1 gm PO Q6H PRN PRN Reason: Abdominal Pain Last Admin: 09/03/17 04:55 Dose: 1 gm Sumatriptan Succinate (Imitrex) 6 mg SUBCUT DAILY PRN PRN Reason: Headache Last Admin: 09/04/17 20:29 Dose: 6 mg Temazepam (Restoril) 15 mg PO BEDTIME PRN PRN Reason: Sleep Tizanidine HCl (Zanaflex) 2 mg PO Q6H PRN PRN Reason: Spasms Last Admin: 09/04/17 11:52 Dose: 2 mg Discontinued Medications Acetaminophen (Tylenol) 975 mg PO NOW ONE Stop: 09/02/17 21:20 Last Admin: 09/02/17 21:26 Dose: 975 mg Bumetanide (Bumex) 1 mg IVPUSH ONETIME ONE Stop: 09/04/17 17:42 Last Admin: 09/04/17 18:09 Dose: 1 mg Clonidine HCl (Catapres) 0.1 mg PO DAILY [facility] Last Admin: 09/04/17 09:16 Dose: 0.1 mg Al Hydroxide/Mg Hydroxide 30 (ml/ Lidocaine HCl 15 ml) 0 ml PO ONETIME ONE Stop: 09/02/17 20:27 Last Admin: 09/02/17 20:29 Dose: 45 ml Hydromorphone HCl (Dilaudid) 0.5 mg IVPUSH ONETIME ONE Stop: 09/02/17 20:49 Last Admin: 09/02/17 21:11 Dose: 0.5 mg Hydromorphone HCl (Dilaudid) 2 mg IVPUSH ONETIME ONE Stop: 09/03/17 16:45 Last Admin: 09/03/17 17:20 Dose: Not Given Hydromorphone HCl (Dilaudid) 2 mg IVPUSH ONETIME ONE Stop: 09/03/17 17:16 Hydromorphone HCl (Dilaudid) 2 mg IVPUSH ONETIME ONE Stop: 09/03/17 17:16 Last Admin: 09/03/17 17:31 Dose: Not Given Hydromorphone HCl (Dilaudid) 2 mg IVPUSH ONETIME ONE Stop: 09/03/17 17:31 Last Admin: 09/03/17 17:31 Dose: Not Given Hydromorphone HCl (Dilaudid) 2 mg IV ONETIME ONE Stop: 09/03/17 17:31 Last Admin: 09/03/17 17:28 Dose: 2 mg Hydromorphone HCl (Dilaudid) 0.5 mg IVPUSH ONETIME ONE Stop: 09/03/17 17:31 Last Admin: 09/03/17 17:32 Dose: Not Given Sodium Chloride (Normal Saline) 1,000 mls @ 250 mls/hr IV ASDIRECTED [facility] Last Admin: 09/03/17 02:23 Dose: 250 mls/hr Clindamycin Phosphate 900 mg/ (Sodium Chloride) 106 mls @ 100 mls/hr IV ONETIME ONE Stop: 09/02/17 20:36 Last Admin: 09/02/17 20:02 Dose: 100 mls/hr Vancomycin HCl 2 gm/ Sodium (Chloride) 250 mls @ 250 mls/hr IV ONETIME ONE Stop: 09/02/17 20:33 Last Admin: 09/02/17 20:04 Dose: 250 mls/hr Piperacillin Sod/Tazobactam (Sod 4.5 gm/ Sodium Chloride) 100 mls @ 25 mls/hr IV Q8H [facility] Last Admin: 09/04/17 11:38 Dose: 25 mls/hr Vancomycin HCl 2 gm/ Sodium (Chloride) 500 mls @ 250 mls/hr IV Q12H [facility] Last Admin: 09/03/17 08:58 Dose: Not Given Piperacillin Sod/Tazobactam (Sod 4.5 gm/ Sodium Chloride) 100 mls @ 200 mls/hr IV ONETIME ONE Stop: 09/02/17 22:59 Last Admin: 09/02/17 22:57 Dose: 200 mls/hr Vancomycin HCl 1.5 gm/ Sodium (Chloride) 500 mls @ 250 mls/hr IV Q12H [facility] Last Admin: 09/03/17 09:47 Dose: Not Given Vancomycin HCl 1.5 gm/ Sodium (Chloride) 500 mls @ 250 mls/hr IV Q12H [facility] Last Admin: 09/03/17 10:12 Dose: 250 mls/hr Sodium Chloride (Normal Saline) 1,000 mls @ 150 mls/hr IV ASDIRECTED [facility] Last Admin: 09/04/17 11:38 Dose: 150 mls/hr Levofloxacin/Dextrose 500 mg/ (Premix) 100 mls @ 100 mls/hr IV ONETIME ONE Stop: 09/04/17 18:34 Last Admin: 09/04/17 18:09 Dose: 100 mls/hr Levofloxacin/Dextrose 500 mg/ (Premix) 100 mls @ 100 mls/hr IV Q24H [facility] Sodium Chloride (Normal Saline) 250 mls @ 999 mls/hr IV ASDIRECTED [facility] Stop: 09/05/17 06:00 Last Admin: 09/05/17 01:38 Dose: 999 mls/hr Sodium Chloride (Normal Saline) 100 mls @ 65 mls/hr IV ASDIRECTED [facility] Stop: 09/06/19 06:00 Last Admin: 09/05/17 01:30 Dose: 65 mls/hr Ibuprofen (Motrin) 800 mg PO ONETIME ONE Stop: 09/02/17 19:14 Last Admin: 09/02/17 19:20 Dose: 800 mg Iopamidol (Isovue-370 (76%)) 100 ml IVPUSH ONETIME ONE Stop: 09/05/17 00:57 Last Admin: 09/05/17 01:30 Dose: 100 ml Iopamidol (Isovue-370 (76%)) 50 ml IVPUSH ONETIME ONE Stop: 09/05/17 00:57 Last Admin: 09/05/17 01:30 Dose: 50 ml Metoclopramide HCl (Reglan) 10 mg IVPUSH ONETIME ONE Stop: 09/02/17 20:50 Last Admin: 09/02/17 21:09 Dose: 10 mg Metoclopramide HCl (Reglan) 5 mg PO Q6H [facility] Last Admin: 09/03/17 08:03 Dose: 5 mg Metoprolol Tartrate (Lopressor) 50 mg PO ONETIME ONE Stop: 09/04/17 23:27 Last Admin: 09/04/17 23:41 Dose: 50 mg Potassium Chloride (Klor-Con M20) 40 meq PO Q4H [facility] Stop: 09/03/17 01:46 Last Admin: 09/03/17 02:22 Dose: 40 meq Quetiapine Fumarate (Seroquel) 300 mg PO DAILY [facility] Last Admin: 09/03/17 08:06 Dose: Not Given Vancomycin HCl (Vancomycin) 2,020.755 mg 15 mg/kg (2020.755 mg) IV Q12H [facility] Last Admin: 09/03/17 08:58 Dose: Not Given Vancomycin HCl (Pharmacy To Dose - Vancomycin) 1 dose .XX ASDIRECTED [facility] - Exam Extremities: Other (RIGHT HEEL WOUND UNCHANGED. NONTENDER. NO WARMTH/ERYTHEMA.) Consult PN Assessment/Plan Procedures: Procedures ASSAY OF ACETAMINOPHEN (03/12/14) ASSAY OF CREATININE (02/15/14) ASSAY OF ETHANOL (03/12/14) ASSAY OF MAGNESIUM (12/13/14) ASSAY OF PHOSPHORUS (12/13/14) ASSAY OF SALICYLATE (03/12/14) ASSAY OF TROPONIN QUANT (08/26/17) BLOOD TYPING SEROLOGIC ABO (05/01/15) BLOOD TYPING SEROLOGIC RH(D) (05/01/15) C-REACTIVE PROTEIN (01/29/14) CHEST X-RAY 1 VIEW FRONTAL (12/13/14) COMPLETE CBC AUTOMATED (05/01/15) COMPLETE CBC W/AUTO DIFF WBC (08/26/17) COMPREHEN METABOLIC PANEL (08/26/17) CREATINE MB FRACTION (01/29/14) CT HEAD/BRAIN W/O DYE (07/13/14) CT NECK SPINE W/O DYE (07/13/14) ELECTROCARDIOGRAM TRACING (08/26/17) EMERGENCY DEPT VISIT (08/26/17) EMERGENCY DEPT VISIT (06/27/17) EMERGENCY DEPT VISIT (12/13/14) EMERGENCY DEPT VISIT (08/01/14) EMERGENCY DEPT VISIT (03/12/14) EMERGENCY DEPT VISIT (01/22/14) FIBRIN DEGRADATION QUANT (08/26/17) HELICOBACTER PYLORI ANTIBODY (08/26/17) HYDRATE IV INFUSION ADD-ON (03/12/14) HYDRATION IV INFUSION INIT (03/12/14) METABOLIC PANEL TOTAL CA (05/01/15) MRI LUMBAR SPINE W/O & W/DYE (02/15/14) POLYSOM 6/> YRS 4/> KEYSHAWN (03/14/15) RBC ANTIBODY SCREEN (05/01/15) ROUTINE VENIPUNCTURE (08/26/17) THER/PROPH/DIAG INJ IV PUSH (05/01/15) THER/PROPH/DIAG INJ SC/IM (06/27/17) TISSUE EXAM BY PATHOLOGIST (05/01/15) TX/PRO/DX INJ NEW DRUG ADDON (06/04/14) TX/PRO/DX INJ SAME DRUG SENIOR [employer] TEAM LEAD (05/01/15) URINALYSIS AUTO W/SCOPE (08/01/14) VAGINAL HYSTERECTOMY (05/01/15) X-RAY EXAM CHEST 1 VIEW (08/26/17) X-RAY EXAM OF ANKLE (07/13/14) X-RAY EXAM OF HIP (07/13/14) X-RAY EXAM OF HUMERUS (07/13/14) X-RAY EXAM OF PELVIS (07/13/14) Problem List Initiated/Reviewed/Updated: Yes Plan: 52 yo female, h/o multiple medical problems, including peripheral neuropathy ( from multiple back surgeries almost 20 years ago) and RIGHT foot chronic wound, bipolar disorder, obesity, CKD, GERD, admitted on the hospitalist service ( [id number]) with gram negative bacteremia, with also gram negative rods seen in her urine culture. Patient also with a chronic RIGHT foot wound, no changes in the past 2 days. - I don't believe the RIGHT foot wound is related to her bacteremia. It dose not appear infected. UTI is likely source. - No indication for urgent wound debridement at this time. - Recommend Podiatry consultation to evaluate the RIGHT heel. - No acute surgical issues at this time. Will sign off. Please call with further concerns or questions. Rogelio Mendoza M.D., F.A.C.S. General Surgery Pager: [phone]
[2017-09-05] MEDS: Aluminum Hydroxide/Magnesium Hydroxide/Simethicone Susp 30 ML Cup PO PRN ×2 (11:03→20:59)
[2017-09-05] MEDS ORDERED: Levofloxacin/Dextrose 5%-Water 500 MG in Premix Bag 1 BAG IV SCH ×2 (12:00→16:00)
[2017-09-05] MEDS: SUMAtriptan 6 MG/0.5 ML SDV SUBCUT PRN (15:23)
[2017-09-05] MEDS: hydrALAZINE 20 MG/ML SDV IVPUSH PRN (16:24)
[2017-09-05] MEDS: QUEtiapine 100 MG Tab PO SCH (20:22)
[2017-09-05] MEDS: ClonazePAM 0.5 MG Tab PO SCH (20:23)
[2017-09-05] MEDS: tiZANidine 4 MG Tab PO PRN (21:35)
[2017-09-05] MEDS: Acetaminophen/HYDROcodone 325-5 MG Tab PO PRN (21:36)
[2017-09-06] MEDS: Acetaminophen/HYDROcodone 325-5 MG Tab PO PRN (04:00)
[2017-09-06] MEDS: SUMAtriptan 6 MG/0.5 ML SDV SUBCUT PRN (06:00)
[2017-09-06] MEDS: Heparin Sodium 5,000 Units/ML Vial SUBCUT SCH ×3 (06:02→21:04)
--- NOTE | 2017-09-06 07:29 | CR ---
Right foot: Four views of the right foot were obtained. Comparison: No prior exam. Soft tissue swelling is noted. Soft tissue ulceration is noted within the posterior heel. No acute fracture, dislocation or other bony abnormality is seen. No focal erosive change is seen. Impression: 1. Soft tissue swelling and soft tissue ulceration within the posterior heel. 2. No acute bony abnormality is identified. Diagnostic code #3
--- NOTE | 2017-09-06 07:29 | CR ---
Chest: Portable view of the chest was obtained. Comparison: Prior chest x-ray of 08/26/17. Heart size and mediastinum are normal. Lungs are clear. Bony structures are grossly intact. Impression: 1. Nothing acute is seen on portable chest x-ray. Diagnostic code #1
[2017-09-06] MEDS ORDERED: Naproxen 500 MG Tab PO ONE (07:32)
[2017-09-06] MEDS ORDERED: Metoclopramide 10 MG/2 ML SDV IVPUSH ONE (07:34)
[2017-09-06] MEDS: Saccharomyces Boulardii (Probiotic) 250 MG Cap PO SCH ×2 (08:25→21:04)
[2017-09-06] MEDS: Metoprolol Tartrate 25 MG Tab PO SCH ×2 (08:25→21:07)
[2017-09-06] MEDS: Desvenlafaxine Succinate [Pristiq] 25 MG PO SCH (08:26)
[2017-09-06] MEDS: cloNIDine 0.1 MG Tab PO SCH ×2 (08:26→21:05)
[2017-09-06] MEDS: Furosemide 40 MG Tab PO SCH (08:26)
[2017-09-06] MEDS: Lurasidone Hcl [Latuda] 60 MG PO SCH (08:27)
--- NOTE | 2017-09-06 08:58 | PCM.PN ---
- General Info Date of Service: 09/06/17 Admission Dx/Problem (Free Text): Admission Diagnosis/Problem Admission Diagnosis/Problem Acute febrile illness Subjective Update: In to see Tisha. She is lying in bed and family is at bedside. We discussed results thus far and plan of care. Awaiting blood cultures and echo results. She otherwise has no concerns. Nursing has no concerns. She feels much improved today. Functional Status: Reports: Pain Controlled, Tolerating Diet, Ambulating, Urinating. Denies: New Symptoms - Review of Systems General: Reports: Weakness (at baseline currently ). Denies: Fever, Fatigue, Malaise, Chills HEENT: Reports: No Symptoms. Denies: Ear Pain, Eye Pain, Sinus Congestion, Sore Throat Pulmonary: Reports: Shortness of Breath (occasional - none now ). Denies: Cough , Sputum, Hemoptysis, Wheezing Cardiovascular: Reports: No Symptoms. Denies: Chest Pain, Dyspnea on Exertion, Edema, Lightheadedness Gastrointestinal: Reports: No Symptoms. Denies: Abdominal Pain, Constipation, Diarrhea, Nausea, Vomiting Genitourinary: Reports: No Symptoms Musculoskeletal: Reports: No Symptoms Skin: Reports: No Symptoms Neurological: Reports: Difficulty Walking (improving ), Gait Disturbance ( improving ). Denies: Confusion, Dizziness, Numbness, Tingling, Trouble Speaking Psychiatric: Reports: No Symptoms - Patient Data Vitals - Most Recent: Last Vital Signs Temp 99.7 F 09/06/17 08:25 Pulse 83 09/06/17 08:25 Resp 14 09/06/17 08:25 BP 148/78 H 09/06/17 08:26 Pulse Ox 93 L 09/06/17 08:25 Weight - Most Recent: 304 lb I&O - Last 24 Hours: Intake & Output 09/05/17 09/06/17 09/06/17 22:59 06:59 14:59 Intake Total 1690 400 Balance 1690 400 Lab Results Last 24 Hours: Laboratory Results - last 24 hr 09/06/17 09/06/17 Range/Units 05:49 05:49 WBC 8.78 (3.98-10.04) K/mm3 RBC 4.05 (3.98-5.22) M/mm3 Hgb 11.0 L (11.2-15.7) gm/L Hct 34.4 (34.1-44.9) % MCV 84.9 (79.4-94.8) fl MCH 27.2 (25.6-32.2) pg MCHC 32.0 L (32.2-35.5) g/dl RDW Std Deviation 45.5 (36.4-46.3) fL Plt Count 316 (182-369) K/mm3 MPV 10.0 (9.4-12.3) fl Neut % (Auto) 60.6 (34.0-71.1) % Lymph % (Auto) 25.2 (19.3-51.7) % Bent % (Auto) 9.0 (4.7-12.5) % Eos % (Auto) 1.8 (0.7-5.8) Baso % (Auto) 0.7 (0.1-1.2) % Neut # (Auto) 5.32 (1.56-6.13) K/mm3 Lymph # (Auto) 2.21 (1.18-3.74) K/mm3 Bent # (Auto) 0.79 H (0.24-0.36) K/mm3 Eos # (Auto) 0.16 (0.04-0.36) K/mm3 Baso # (Auto) 0.06 (0.01-0.08) K/mm3 Manual Slide Review Normal smear Sodium 139 (136-145) mEq/L Potassium 3.9 (3.5-5.1) mEq/L Chloride 105 (98-107) mEq/L Carbon Dioxide 23 (21-32) mEq/L Anion Gap 14.9 (5-15) BUN 14 (7-18) mg/dL Creatinine 1.3 H (0.55-1.02) mg/dL Est Cr Clr Drug Dosing 55.94 mL/min Estimated GFR (MDRD) 43 (>60) mL/min BUN/Creatinine Ratio 10.8 L (14-18) Glucose 111 H (74-106) mg/dL Calcium 8.4 L (8.5-10.1) mg/dL Magnesium 2.4 (1.8-2.4) mg/dl C-Reactive Protein 19.4 H* (<1.0) mg/dL [facility] Results Last 24 Hours: Microbiology 09/04/17 20:05 Aerobic Blood Culture - Preliminary Blood - Venous NO GROWTH AFTER 1 DAY Anaerobic Blood Culture - Preliminary NO GROWTH AFTER 1 DAY 09/04/17 20:20 Aerobic Blood Culture - Preliminary Blood - Venous - Lab Draw NO GROWTH AFTER 1 DAY Anaerobic Blood Culture - Preliminary NO GROWTH AFTER 1 DAY 09/02/17 19:10 Aerobic Blood Culture - Preliminary Blood - Venous - Lab Draw NO GROWTH AFTER 3 DAYS Anaerobic Blood Culture - Preliminary Escherichia Coli 09/02/17 19:00 Aerobic Blood Culture - Preliminary Blood - Venous NO GROWTH AFTER 3 DAYS Anaerobic Blood Culture - Preliminary Escherichia Coli 09/02/17 22:50 Wound Culture - Final Foot, Right Staphylococcus Aureus Med Orders - Current: Current Medications Acetaminophen (Tylenol) 650 mg PO Q4H PRN PRN Reason: Pain (Mild 1-3)/fever Last Admin: 09/05/17 20:59 Dose: 650 mg Hydrocodone Bitart/Acetaminophen ([place]ison 325-5 Mg) 1 tab PO Q4H PRN PRN Reason: Pain (moderate 4-6) Last Admin: 09/06/17 04:00 Dose: 1 tab Al Hydroxide/Mg Hydroxide (Mag-Al Plus) 30 ml PO Q4H PRN PRN Reason: Heartburn Last Admin: 09/05/17 20:59 Dose: 30 ml Albuterol/Ipratropium (Duoneb 3.0-0.5 Mg/3 Ml) 3 ml NEB Q4H PRN PRN Reason: Shortness Of Breath/wheezing Bisacodyl (Dulcolax) 5 mg PO DAILY PRN PRN Reason: Constipation Clonazepam (Klonopin) 0.5 mg PO BEDTIME [facility] Last Admin: 09/05/17 20:23 Dose: 0.5 mg Clonidine HCl (Catapres) 0.1 mg PO BID [facility] Last Admin: 09/06/17 08:26 Dose: 0.1 mg Docusate Sodium (Colace) 100 mg PO BID PRN PRN Reason: Constipation Last Admin: 09/04/17 18:09 Dose: 100 mg Furosemide (Lasix) 40 mg PO DAILY [facility] Last Admin: 09/06/17 08:26 Dose: 40 mg Heparin Sodium (Porcine) (Heparin Sodium) 5,000 units SUBCUT Q8H [facility] Last Admin: 09/06/17 06:02 Dose: 5,000 units Hydralazine HCl (Apresoline) 20 mg IVPUSH Q4H PRN PRN Reason: Hypertension Last Admin: 09/05/17 16:24 Dose: 20 mg Hydromorphone HCl (Dilaudid) 0.5 mg IVPUSH Q2H PRN PRN Reason: Pain (severe 7-10) Last Admin: 09/03/17 20:00 Dose: 0.5 mg Promethazine HCl 12.5 mg/ (Sodium Chloride) 50.5 mls @ 100 mls/hr IV Q6H PRN PRN Reason: Nausea/Vomiting Levofloxacin/Dextrose 500 mg/ (Premix) 100 mls @ 100 mls/hr IV Q24H [facility] Last Admin: 09/05/17 16:23 Dose: 100 mls/hr Lisinopril (Prinivil) 20 mg PO DAILY [facility] Last Admin: 09/04/17 09:16 Dose: 20 mg Lorazepam (Ativan) 2 mg IVPUSH Q4H PRN PRN Reason: Seizures Lorazepam (Ativan) 1 mg IV Q6H PRN PRN Reason: Anxiety Magnesium Sulfate (Pharmacy To Dose - Magnesium Replacement) 1 dose .XX ASDIRECTED [facility] Metoprolol Tartrate (Lopressor) 5 mg IVPUSH Q4H PRN PRN Reason: Tachycardia Last Admin: 09/04/17 17:07 Dose: 5 mg Metoprolol Tartrate (Lopressor) 25 mg PO Q12HR [facility] Last Admin: 09/06/17 08:25 Dose: 25 mg Ondansetron HCl (Zofran) 4 mg IV Q6H PRN PRN Reason: Nausea/Vomiting Desvenlafaxine Succinate [Pristiq] 25 Mg 0 each PO DAILY [facility] Last Admin: 09/06/17 08:26 Dose: Not Given Lurasidone Hcl [ (Latuda] 60 Mg) 0 each PO DAILY [facility] Last Admin: 09/06/17 08:27 Dose: Not Given Polyethylene Glycol (Miralax) 17 gm PO DAILY PRN PRN Reason: Constipation Potassium Chloride (Pharmacy To Dose - Potassium Replacement) 1 dose .XX ASDIRECTED [facility] Quetiapine Fumarate (Seroquel) 300 mg PO BEDTIME [facility] Last Admin: 09/05/17 20:22 Dose: 300 mg Saccharomyces Boulardii (Florastor) 250 mg PO BID [facility] Last Admin: 09/06/17 08:25 Dose: 250 mg Senna/Docusate Sodium (Senna Plus) 1 tab PO BID PRN PRN Reason: Constipation Sodium Chloride (Saline Flush) 10 ml FLUSH ONETIME PRN PRN Reason: IV FLUSH Last Admin: 09/05/17 01:30 Dose: 10 ml Sucralfate (Carafate) 1 gm PO Q6H PRN PRN Reason: Abdominal Pain Last Admin: 09/03/17 04:55 Dose: 1 gm Sumatriptan Succinate (Imitrex) 6 mg SUBCUT DAILY PRN PRN Reason: Headache Last Admin: 09/06/17 06:00 Dose: 6 mg Temazepam (Restoril) 15 mg PO BEDTIME PRN PRN Reason: Sleep Last Admin: 09/05/17 21:36 Dose: 15 mg Tizanidine HCl (Zanaflex) 2 mg PO Q6H PRN PRN Reason: Spasms Last Admin: 09/05/17 21:35 Dose: 2 mg Discontinued Medications Acetaminophen (Tylenol) 975 mg PO NOW ONE Stop: 09/02/17 21:20 Last Admin: 09/02/17 21:26 Dose: 975 mg Bumetanide (Bumex) 1 mg IVPUSH ONETIME ONE Stop: 09/04/17 17:42 Last Admin: 09/04/17 18:09 Dose: 1 mg Clonidine HCl (Catapres) 0.1 mg PO DAILY [facility] Last Admin: 09/04/17 09:16 Dose: 0.1 mg Al Hydroxide/Mg Hydroxide 30 (ml/ Lidocaine HCl 15 ml) 0 ml PO ONETIME ONE Stop: 09/02/17 20:27 Last Admin: 09/02/17 20:29 Dose: 45 ml Hydromorphone HCl (Dilaudid) 0.5 mg IVPUSH ONETIME ONE Stop: 09/02/17 20:49 Last Admin: 09/02/17 21:11 Dose: 0.5 mg Hydromorphone HCl (Dilaudid) 2 mg IVPUSH ONETIME ONE Stop: 09/03/17 16:45 Last Admin: 09/03/17 17:20 Dose: Not Given Hydromorphone HCl (Dilaudid) 2 mg IVPUSH ONETIME ONE Stop: 09/03/17 17:16 Hydromorphone HCl (Dilaudid) 2 mg IVPUSH ONETIME ONE Stop: 09/03/17 17:16 Last Admin: 09/03/17 17:31 Dose: Not Given Hydromorphone HCl (Dilaudid) 2 mg IVPUSH ONETIME ONE Stop: 09/03/17 17:31 Last Admin: 09/03/17 17:31 Dose: Not Given Hydromorphone HCl (Dilaudid) 2 mg IV ONETIME ONE Stop: 09/03/17 17:31 Last Admin: 09/03/17 17:28 Dose: 2 mg Hydromorphone HCl (Dilaudid) 0.5 mg IVPUSH ONETIME ONE Stop: 09/03/17 17:31 Last Admin: 09/03/17 17:32 Dose: Not Given Sodium Chloride (Normal Saline) 1,000 mls @ 250 mls/hr IV ASDIRECTED [facility] Last Admin: 09/03/17 02:23 Dose: 250 mls/hr Clindamycin Phosphate 900 mg/ (Sodium Chloride) 106 mls @ 100 mls/hr IV ONETIME ONE Stop: 09/02/17 20:36 Last Admin: 09/02/17 20:02 Dose: 100 mls/hr Vancomycin HCl 2 gm/ Sodium (Chloride) 250 mls @ 250 mls/hr IV ONETIME ONE Stop: 09/02/17 20:33 Last Admin: 09/02/17 20:04 Dose: 250 mls/hr Piperacillin Sod/Tazobactam (Sod 4.5 gm/ Sodium Chloride) 100 mls @ 25 mls/hr IV Q8H [facility] Last Admin: 09/04/17 11:38 Dose: 25 mls/hr Vancomycin HCl 2 gm/ Sodium (Chloride) 500 mls @ 250 mls/hr IV Q12H [facility] Last Admin: 09/03/17 08:58 Dose: Not Given Piperacillin Sod/Tazobactam (Sod 4.5 gm/ Sodium Chloride) 100 mls @ 200 mls/hr IV ONETIME ONE Stop: 09/02/17 22:59 Last Admin: 09/02/17 22:57 Dose: 200 mls/hr Vancomycin HCl 1.5 gm/ Sodium (Chloride) 500 mls @ 250 mls/hr IV Q12H [facility] Last Admin: 09/03/17 09:47 Dose: Not Given Vancomycin HCl 1.5 gm/ Sodium (Chloride) 500 mls @ 250 mls/hr IV Q12H [facility] Last Admin: 09/03/17 10:12 Dose: 250 mls/hr Sodium Chloride (Normal Saline) 1,000 mls @ 150 mls/hr IV ASDIRECTED [facility] Last Admin: 09/04/17 11:38 Dose: 150 mls/hr Levofloxacin/Dextrose 500 mg/ (Premix) 100 mls @ 100 mls/hr IV ONETIME ONE Stop: 09/04/17 18:34 Last Admin: 09/04/17 18:09 Dose: 100 mls/hr Levofloxacin/Dextrose 500 mg/ (Premix) 100 mls @ 100 mls/hr IV Q24H [facility] Sodium Chloride (Normal Saline) 1,000 mls @ 20 mls/hr IV ASDIRECTED [facility] Stop: 09/08/17 17:54 Last Admin: 09/04/17 20:37 Dose: 20 mls/hr Sodium Chloride (Normal Saline) 250 mls @ 999 mls/hr IV ASDIRECTED [facility] Stop: 09/05/17 06:00 Last Admin: 09/05/17 01:38 Dose: 999 mls/hr Sodium Chloride (Normal Saline) 100 mls @ 65 mls/hr IV ASDIRECTED [facility] Stop: 09/06/19 06:00 Last Admin: 09/05/17 01:30 Dose: 65 mls/hr Ibuprofen (Motrin) 800 mg PO ONETIME ONE Stop: 09/02/17 19:14 Last Admin: 09/02/17 19:20 Dose: 800 mg Iopamidol (Isovue-370 (76%)) 100 ml IVPUSH ONETIME ONE Stop: 09/05/17 00:57 Last Admin: 09/05/17 01:30 Dose: 100 ml Iopamidol (Isovue-370 (76%)) 50 ml IVPUSH ONETIME ONE Stop: 09/05/17 00:57 Last Admin: 09/05/17 01:30 Dose: 50 ml Metoclopramide HCl (Reglan) 10 mg IVPUSH ONETIME ONE Stop: 09/02/17 20:50 Last Admin: 09/02/17 21:09 Dose: 10 mg Metoclopramide HCl (Reglan) 5 mg PO Q6H [facility] Last Admin: 09/03/17 08:03 Dose: 5 mg Metoclopramide HCl (Reglan) 5 mg IVPUSH ONETIME ONE Stop: 09/06/17 07:35 Last Admin: 09/06/17 08:24 Dose: 5 mg Metoprolol Tartrate (Lopressor) 50 mg PO ONETIME ONE Stop: 09/04/17 23:27 Last Admin: 09/04/17 23:41 Dose: 50 mg Naproxen (Naprosyn) 500 mg PO ONETIME ONE Stop: 09/06/17 07:33 Last Admin: 09/06/17 08:26 Dose: 500 mg Potassium Chloride (Klor-Con M20) 40 meq PO Q4H [facility] Stop: 09/03/17 01:46 Last Admin: 09/03/17 02:22 Dose: 40 meq Quetiapine Fumarate (Seroquel) 300 mg PO DAILY [facility] Last Admin: 09/03/17 08:06 Dose: Not Given Vancomycin HCl (Vancomycin) 2,020.755 mg 15 mg/kg (2020.755 mg) IV Q12H [facility] Last Admin: 09/03/17 08:58 Dose: Not Given Vancomycin HCl (Pharmacy To Dose - Vancomycin) 1 dose .XX ASDIRECTED [facility] - Exam Quality Assessment: DVT Prophylaxis General: Alert, Oriented, Cooperative, No Acute Distress, Other (obease) HEENT: Pupils Equal, Pupils Reactive, EOMI, Mucous Membr. Moist/[place] Neck: Supple, Trachea Midline Lungs: Clear to Auscultation, Normal Respiratory Effort, Decreased Breath Sounds Cardiovascular: Regular Rate, Regular Rhythm GI/Abdominal Exam: Normal Bowel Sounds, Soft, Non-Tender, No Distention (Female) Exam: Deferred Back Exam: Normal Inspection, Full Range of Motion Extremities: Normal Range of Motion, Non-Tender, No Pedal Edema, Normal Capillary Refill, Other (Large fissure on right heel. ) Peripheral Pulses: 2+: Radial (L), Radial (R), Posterior Tibial (L), Posterior Tibial (R), Dorsalis Pedis (L), Dorsalis Pedis (R) Skin: Warm, Dry, Intact Wound/Incisions: No Drainage. No: Erythema Neurological: No New Focal Deficit Psy/Mental Status: Alert, Normal Affect, Normal Mood - Problem List & Annotations (1) Acute febrile illness SNOMED Code(s): 320129852 Code(s): R50.9 - FEVER, UNSPECIFIED Status: Acute Priority: High Current Visit: Yes (2) Urinary tract infection SNOMED Code(s): 56164823 Code(s): N39.0 - URINARY TRACT INFECTION, SITE NOT SPECIFIED Status: Acute Priority: High Current Visit: Yes Qualifiers: Urinary tract infection type: site unspecified Hematuria presence: without hematuria Qualified Code(s): N39.0 - Urinary tract infection, site not specified (3) GERD (gastroesophageal reflux disease) SNOMED Code(s): 421025735 Code(s): K21.9 - GASTRO-ESOPHAGEAL REFLUX DISEASE WITHOUT ESOPHAGITIS Status: Chronic Priority: Medium Current Visit: No Qualifiers: Esophagitis presence: with esophagitis Qualified Code(s): K21.0 - Gastro- esophageal reflux disease with esophagitis (4) Hypertension SNOMED Code(s): 47273822 Code(s): I10 - ESSENTIAL (PRIMARY) HYPERTENSION Status: Acute Priority: Medium Current Visit: No Qualifiers: Hypertension type: essential hypertension Qualified Code(s): I10 - Essential (primary) hypertension (5) Migraine SNOMED Code(s): 80687687 Code(s): G43.909 - MIGRAINE, UNSP, NOT INTRACTABLE, WITHOUT STATUS MIGRAINOSUS Status: Acute Priority: High Current Visit: Yes (6) Bacteremia SNOMED Code(s): 3299020 Code(s): R78.81 - BACTEREMIA Status: Acute Priority: High Current Visit : Yes (7) Ulcer of left heel SNOMED Code(s): 286287686 Code(s): L97.429 - NON-PRS CHRONIC ULCER OF LEFT HEEL AND MIDFOOT W UNSP SEVERT Status: Acute Priority: High Current Visit: Yes Qualifiers: Non-pressure ulcer stage: unspecified non-pressure ulcer stage Qualified Code(s): L97.429 - Non-pressure chronic ulcer of left heel and midfoot with unspecified severity (8) Acute renal insufficiency SNOMED Code(s): 724508162 Code(s): N28.9 - DISORDER OF KIDNEY AND URETER, UNSPECIFIED Status: Acute Priority: High Current Visit: Yes (9) Elevated d-dimer SNOMED Code(s): 090221793 Code(s): R79.89 - OTHER SPECIFIED ABNORMAL FINDINGS OF BLOOD CHEMISTRY Status: Acute Priority: High Current Visit: Yes (10) Morbid obesity with BMI of 40.0-44.9, adult SNOMED Code(s): 817595818 Code(s): E66.01 - MORBID (SEVERE) OBESITY DUE TO EXCESS CALORIES; Z68.41 - BODY MASS INDEX (BMI) 40.0-44.9, ADULT Status: Chronic Priority: Medium Current Visit: Yes - Problem List Review Problem List Initiated/Reviewed/Updated: Yes - Plan Plan:: Assessment/Plan: Acute: E. coli Bacteremia - 2/2 UTI - She was Asymptomatic - Has Urinary Incontinence and UA is pos for UTI - Afebrile w/o leukocytosis - CRP of 37--> 30.9--> 29 --> now 22.6 - Received IV Vancomycin and IV Zosyn; Continue IV Levaquin Daily-> Switch to PO levaquin - UA E. Coli, Blood culture positive for E. coli - both sensitive to Levaquin - Pending Repeat blood culture - negative after one day Right Non-Diabetic Foot Ulcer, Stable - This has been going since her last back surgery; she stumps on it and it breaks her skin on - She has been trying to see a foot doctor scheduled outpatient - Consulted Podiatry but unable to get a hold of specialist; defer further eval outpatient - Consulted Dr. Kaur deferred to Podiatry outpatient - Received IV Cleocin in ED x1 - Received IV Vancomycin and IV Zosyn but will d/c it - Wound culture is pos for Staph Aureus--> has good coverage with Levaquin - Bone scan revealed no osteomyelitis Acute Renal Injury/Renal Insufficiency, Continues to Improve - Baseline GFR is 43 (Stage 3 08/26/2017); now 43 - BUN 25 and CR 1.8--> BUN 13/Cr 1.4--> BUN 12/Cr 1.3 --> BUN14/Cr 1.3 - Continue to hold ACEI - Had recent GI loss form nausea and vomiting HTN, Improved - Carries a hx/o HTN - Currently receiving aggressive fluid hydration at 250 cc/hr--> KVO 15-20 cc /hr - Continue Clonidin 0.1 mg po BID, Lasix 60 mg po Daily and PRN IV Hydralazine Elevated D-Dimer - CTA ruled out PE - Continue Heparin 5000 units SubQ TID for DVT prophylaxis CTA Additional Findings: abnormal findings discussed with patients at bedside - Subtle patchy areas of perihilar infiltrate: Pulmonary fibrosis vs CHF - Small Bilateral Pleural Effusions - Small Pericardial Effusion Resolved: S/p Leukocytosis - WBC 15K - 2/2 Above - Treatment as above S/p Mild Hypokalemia - K 3.4--> 3.5 - Likely from inadequate intake - Replete and monitor S/p Sinus Tachycardia - Likely 2/2 Bacteremia - EKG and Telemetry both show sinus tachycardia - Received rate control medications - Has PRN IV Metoprolol Right Thigh Pain/Spasm - Pain is now 04/07 - Continue Pain and Anti-spastic Meds - PT/OT for conservative management Chronic: Impaired Vision HTN HLD, Lipid Panel:within normal limits Angioplasty Asthma GERD, Stable at this time Hiatal hernia Urinary Incontinence S/p TVH DJD Talipes Cavus LBP with Sciatica S/p Surgery x2 Hx/o CVA Migraines Seizures BPD OCD PTSD Insomnia Essential Tremors Peripheral Neuropathy R>>L Morbid Obesity with BMI of 40+ Plan: She remains clinically stable Continue current treatment Routine AM Labs Continue PT/OT consult Will need outpatient podiatry follow-up GS following 2D echo in AM for baseline and to r/o undiagnosed HF Podiatry eval outpatient SW/CM for d/c planning Additional orders as above Code status: 1; PCP: Taryn Tran Nurse practitioner LOS anticipate > 96 hrs pending results of repeat blood culture
--- NOTE | 2017-09-06 09:45 | US ---
Right lower extremity deep venous ultrasound: Duplex and color flow imaging was obtained of the right common femoral, superficial femoral, popliteal, posterior tibial and peroneal veins. Left common femoral vein was also evaluated. Findings: Normal phasic flow, augmentation and compression is seen within the common femoral through popliteal veins. Lack of compression is seen within posterior tibial and peroneal veins with normal phasic flow and augmentation seen within the posterior tibial and peroneal veins. Left common femoral vein is patent. Impression: 1. No evidence of deep venous thrombosis within the right lower extremity or within the left common femoral vein. Diagnostic code #1 I agree with preliminary report from [facility], finalized at 09/03/17, 6:06 PM Central Time
--- NOTE | 2017-09-06 11:26 | CT ---
CT chest Technique: Multiple axial sections through the chest were obtained. Study has been performed as a pulmonary angiogram protocol. Intravenous contrast was therefore utilized. Findings: Pulmonary arteries are well-opacified. No filling defects are seen to indicate pulmonary embolism. Minimal pericardial effusion is seen. Mediastinum and hilar regions show no adenopathy or mass. No axillary adenopathy is seen. Small bilateral pleural effusions are seen. Perihilar markings are mildly fuzzy raising the possibility of mild pulmonary vascular congestion. Small areas of scattered atelectasis is noted. Impression: 1. Small bilateral pleural effusions and possible mild pulmonary vascular congestion. Please correlate if patient has symptoms of mild CHF. 2. Mild scattered areas of atelectasis. 3. No findings of pulmonary embolism. Diagnostic code #3 Agree with preliminary report issued by [facility] ([facility] preliminary report dictated on 09/05/17, 2:55 AM Central Time)
--- NOTE | 2017-09-06 11:27 | CR ---
Chest: Frontal view of the chest was obtained. Comparison: Prior chest x-ray of 09/02/17. Heart size and mediastinum are normal. Central lung markings slightly more prominent than on prior chest x-ray. Lungs otherwise are clear. Bony structures are unremarkable. Impression: 1. Central lung markings are slightly more prominent than on prior study raising the possibility of bronchitis or pulmonary vascular congestion. Diagnostic code #3 I agree with preliminary report issued by [facility], with additional finding as noted above ([facility] preliminary report dictated on 09/04/17, 7:43 PM Central Time)
[2017-09-06] MEDS ORDERED: Levofloxacin 500 MG Tab PO SCH (16:00)
[2017-09-06] MEDS: QUEtiapine 100 MG Tab PO SCH (21:05)
[2017-09-06] MEDS: ClonazePAM 0.5 MG Tab PO SCH (21:07)
[2017-09-06] MEDS: Aluminum Hydroxide/Magnesium Hydroxide/Simethicone Susp 30 ML Cup PO PRN (23:07)
[2017-09-07] MEDS: Heparin Sodium 5,000 Units/ML Vial SUBCUT SCH (06:44)
--- NOTE | 2017-09-07 06:57 | PCM.DCSUM1 ---
Discharge Summary - Hospital Course HPI Initial Comments: This is a 51-year-old morbidly obese white female with past medical history of Impaired Vision, HTN, HLD, Angioplasty, Asthma, GERD, Hiatal hernia, Urinary Incontinence, S/p TVH, DJD, Talipes Cavus, LBP with Sciatica S/p Surgery x2, Hx/ o CVA, Migraines, Seizures, BPD, OCD, PTSD, Insomnia, Essential Tremors, and Morbid Obesity with BMI of 40+ who comes in the evaluation of increased right lower extremity spasm/pain. She rates her pain at 8-9/10 on pain scale. Her chief complaint is associated with fever,chills, nausea, vomiting, and severe pyrosis/reflux disease. Patient reports having an ulcerated lesion localized to her right heel that has been going on for 6 weeks now. She states having bilateral lower extremity peripheral neuropathy R>>L and paresis after her second back surgery. Her initial workup in emergency department shows a CBC remarkable for WBC of 15.53, neutrophils of 91%, lymphocytes of 5%, and ESR of 1.3. Her chemistry is significant for potassium of 3.4, BUN of 25, creatinine of 1.8, glucose of 142, alkaline phosphatase of 238, CRP of 37.1, proBNP of 238, and albumin of 2.9. Chest and foot x-rays both show no acute abnormal findings. Since being admitted for sepsis secondary to right foot ulcer. She is full code. Diagnosis: Stroke: No - Discharge Data Discharge Date: 09/07/17 (Admit Date: 09/02/17) Discharge Disposition: Home, Self-Care 01 Condition: Good - Discharge Diagnosis/Problem(s) (1) Acute febrile illness SNOMED Code(s): 173031474 ICD Code: R50.9 - FEVER, UNSPECIFIED Status: Acute Priority: High Current Visit: Yes (2) Urinary tract infection SNOMED Code(s): 87642241 ICD Code: N39.0 - URINARY TRACT INFECTION, SITE NOT SPECIFIED Status: Acute Priority: High Current Visit: Yes Qualifiers: Urinary tract infection type: site unspecified Hematuria presence: without hematuria Qualified Code(s): N39.0 - Urinary tract infection, site not specified (3) GERD (gastroesophageal reflux disease) SNOMED Code(s): 570621868 ICD Code: K21.9 - GASTRO-ESOPHAGEAL REFLUX DISEASE WITHOUT ESOPHAGITIS Status: Chronic Priority: Medium Current Visit: No Qualifiers: Esophagitis presence: with esophagitis Qualified Code(s): K21.0 - Gastro- esophageal reflux disease with esophagitis (4) Hypertension SNOMED Code(s): 90370421 ICD Code: I10 - ESSENTIAL (PRIMARY) HYPERTENSION Status: Acute Priority: Medium Current Visit: No Qualifiers: Hypertension type: essential hypertension Qualified Code(s): I10 - Essential (primary) hypertension (5) Migraine SNOMED Code(s): 76394695 ICD Code: G43.909 - MIGRAINE, UNSP, NOT INTRACTABLE, WITHOUT STATUS MIGRAINOSUS Status: Acute Priority: High Current Visit: Yes (6) Bacteremia SNOMED Code(s): 6484408 ICD Code: R78.81 - BACTEREMIA Status: Acute Priority: High Current Visit: Yes (7) Ulcer of left heel SNOMED Code(s): 054257845 ICD Code: L97.429 - NON-PRS CHRONIC ULCER OF LEFT HEEL AND MIDFOOT W UNSP SEVERT Status: Acute Priority: High Current Visit: Yes Qualifiers: Non-pressure ulcer stage: unspecified non-pressure ulcer stage Qualified Code(s): L97.429 - Non-pressure chronic ulcer of left heel and midfoot with unspecified severity (8) Acute renal insufficiency SNOMED Code(s): 466744320 ICD Code: N28.9 - DISORDER OF KIDNEY AND URETER, UNSPECIFIED Status: Acute Priority: High Current Visit: Yes (9) Elevated d-dimer SNOMED Code(s): 052255881 ICD Code: R79.89 - OTHER SPECIFIED ABNORMAL FINDINGS OF BLOOD CHEMISTRY Status: Acute Priority: High Current Visit: Yes (10) Morbid obesity with BMI of 40.0-44.9, adult SNOMED Code(s): 067091085 ICD Code: E66.01 - MORBID (SEVERE) OBESITY DUE TO EXCESS CALORIES; Z68.41 - BODY MASS INDEX (BMI) 40.0-44.9, ADULT Status: Chronic Priority: Medium Current Visit: Yes - Patient Summary/Data Consults: Consultations 09/02/17 21:47 Consult to Case Management [CONS] Routine Consult to Web Production Assistant [CONS] Routine Consult to Police District Switchboard Operator [CONS] Routine OT Evaluation and Treatment [CONS] Routine PT Evaluation and Treatment [CONS] Routine 09/02/17 21:52 Consult to Physician [CONS] Routine 09/03/17 12:05 Consult to Physician [CONS] Routine Labs Pending at D/C: None Recommended Follow-up Testing/Procedures: Follow-up with PCP within 7-10 days of discharge. Follow-up with podiatry at next available appointment. Hospital Course: Assessment/Plan: Acute: E. coli Bacteremia - 2/2 UTI - She was Asymptomatic - Has Urinary Incontinence and UA is pos for UTI - Afebrile w/o leukocytosis - CRP of 37--> 30.9--> 29 --> now 22.6 - Received IV Vancomycin and IV Zosyn; Continue IV Levaquin Daily-> Switch to PO levaquin - UA E. Coli, Blood culture positive for E. coli - both sensitive to Levaquin - Pending Repeat blood culture - negative after two days Right Non-Diabetic Foot Ulcer, Stable - This has been going since her last back surgery; she stumps on it and it breaks her skin on - She has been trying to see a foot doctor scheduled outpatient - Consulted Podiatry but unable to get a hold of specialist; defer further eval outpatient - Consulted Dr. Kaur deferred to Podiatry outpatient - Received IV Cleocin in ED x1 - Received IV Vancomycin and IV Zosyn but will d/c it - Wound culture is pos for Staph Aureus--> has good coverage with Levaquin - Bone scan revealed no osteomyelitis Acute Renal Injury/Renal Insufficiency, Continues to Improve - Baseline GFR is 43 (Stage 3 08/26/2017); now 43 - BUN 25 and CR 1.8--> BUN 13/Cr 1.4--> BUN 12/Cr 1.3 --> BUN14/Cr 1.3 - Continue to hold ACEI - Had recent GI loss form nausea and vomiting HTN, Improved - Carries a hx/o HTN - Currently receiving aggressive fluid hydration at 250 cc/hr--> KVO 15-20 cc /hr - Continue Clonidin 0.1 mg po BID, Lasix 60 mg po Daily and PRN IV Hydralazine Elevated D-Dimer - CTA ruled out PE - Continue Heparin 5000 units SubQ TID for DVT prophylaxis CTA Additional Findings: abnormal findings discussed with patients at bedside - Subtle patchy areas of perihilar infiltrate: Pulmonary fibrosis vs CHF - Small Bilateral Pleural Effusions - Small Pericardial Effusion Resolved: S/p Leukocytosis - WBC 15K - 2/2 Above - Treatment as above S/p Mild Hypokalemia - K 3.4--> 3.5 - Likely from inadequate intake - Replete and monitor S/p Sinus Tachycardia - Likely 2/2 Bacteremia - EKG and Telemetry both show sinus tachycardia - Received rate control medications - Has PRN IV Metoprolol Right Thigh Pain/Spasm - Pain is now 04/07 - Continue Pain and Anti-spastic Meds - PT/OT for conservative management Chronic: Impaired Vision HTN HLD, Lipid Panel:within normal limits Angioplasty Asthma GERD, Stable at this time Hiatal hernia Urinary Incontinence S/p TVH DJD Talipes Cavus LBP with Sciatica S/p Surgery x2 Hx/o CVA Migraines Seizures BPD OCD PTSD Insomnia Essential Tremors Peripheral Neuropathy R>>L Morbid Obesity with BMI of 40+ Plan: She remains clinically stable Continue current treatment Routine AM Labs Continue PT/OT consult Will need outpatient podiatry follow-up GS following 2D echo 09/06/17 for baseline and to r/o undiagnosed HF: 1. LVEF, by visual estimation, is 60% 2. Mild proximal septal hypertorphy 3. Normal pattern of LV diastolic filling 4. No regional wall motion abnormalities 5. Mild mitral valve regurgitation 6. Mild tricuspid valve regurgitation 7.The right ventricular systolic pressure is normal at 31.5 8. Trivial pericardial effusion Podiatry eval outpatient SW/CM for d/c planning Additional orders as above Code status: 1; PCP: Taryn Tran Nurse practitioner LOS anticipate > 96 hrs pending results of repeat blood culture. Overall Tisha did very well. Her bacteremia was found to be caused by her UTI and not her heel wound as originally thought. Both her urine and blood cultures grew out E. Coli sensitive to levaquin and she was transitioned to PO levaquin prior to discharge. Her foot wound was cultured and grew out staph aureus with coverage from levaquin. This wound was not draining and was more of a deep fissure. Labs continued to look good and her CRP was trending downward. She did complain of occasional dyspnea and chest x-ray showed possible pulmonary congestion. CTA was obtained and showed mild pericardial effusion. Echo was obtained as above. She did have some hypertension while here and was instructed to take her clonidine BID. Her kidney function continued to improve. Dr. Kaur, general surgeon, was consulted to look at her foot wound and recommended follow-up with podiatry. Dr. Soto was consulted however we were unable to make contact with him. She will need outpatient follow-up for this. She was discharge home on 3 more days of 500mg Levaquin and a probiotic. She was instructed to check her BP TID and keep a journal of this, bringing it with to all medical appointments. Dr. Lockhart and her discussed lifestyle modifications including exercising and loosing weight. She also met with a load mixer. She will be discharged home today. - Patient Instructions Diet: Heart Healthy Diet Activity: As Tolerated Driving: Do Not Drive Notify Provider of: Fever, Increased Pain, Drainage (from foot ), Nausea and/or Vomiting - Discharge Plan Prescriptions/Med Rec: Levofloxacin [Levaquin] 500 mg PO Q24H #3 tablet Saccharomyces Boulardii [Florastor] 250 mg PO DAILY #3 cap Home Medications: Home Meds clonazePAM [Clonazepam] 0.5 mg PO BEDTIME 04/30/15 [History] Lurasidone HCl [Latuda] 60 mg PO DAILY 06/27/17 [History] QUEtiapine [SEROquel] 300 mg PO DAILY 06/27/17 [History] SUMAtriptan [Imitrex] 1 injection INJECT DAILY PRN 06/27/17 [History] Desvenlafaxine Succinate [Pristiq ER] 25 mg PO DAILY 08/26/17 [History] Lisinopril 20 mg PO DAILY 08/26/17 [History] Metoclopramide HCl [Reglan] 5 mg PO Q6HR #30 tablet 08/26/17 [Rx] Sucralfate [Carafate] 1 gm PO Q6H PRN #300 ml 08/26/17 [Rx] Levofloxacin [Levaquin] 500 mg PO Q24H #3 tablet 09/07/17 [Rx] Saccharomyces Boulardii [Florastor] 250 mg PO DAILY #3 cap 09/07/17 [Rx] cloNIDine HCl [Catapres] 0.1 mg PO BID #0 09/07/17 [Rx] Patient Handouts: Hypokalemia, Preventing Pressure Injuries, Urinary Tract Infection, Adult, [id number], Recurrent Migraine Headache, [id number], Exercising to Lose Weight, Bacteremia, Fever, Adult, Yraq-to-Chwi, Obesity, Adult, Qviy-vx-[id number] Referrals: Taryn Tran, EQUITY MANAGER [Primary Care Provider] - 09/15/17 8:00 am (Ask about having a podiatry consult.) - Discharge Summary/Plan Comment DC Time >30 min.: Yes (40 mins ) - General Info Date of Service: 09/07/17 Admission Dx/Problem (Free Text: Admission Diagnosis/Problem Admission Diagnosis/Problem Acute febrile illness Subjective Update: In to see Tisha. She is lying in bed. She has been up ambulating yesterday and today. She says she feels very good. No concerns or complaints. Nursing has no concerns. She will be discharged home today. Functional Status: Reports: Pain Controlled, Tolerating Diet, Ambulating, Urinating. Denies: New Symptoms - Review of Systems General: Reports: No Symptoms. Denies: Fever, Weakness, Fatigue, Malaise HEENT: Reports: No Symptoms. Denies: Ear Pain, Eye Pain, Headaches, Sore Throat Pulmonary: Reports: No Symptoms. Denies: Shortness of Breath, Cough, Wheezing Cardiovascular: Reports: No Symptoms. Denies: Chest Pain, Palpitations, Dyspnea on Exertion, Edema Gastrointestinal: Reports: No Symptoms. Denies: Abdominal Pain, Constipation, Diarrhea, Nausea, Vomiting Genitourinary: Reports: No Symptoms Musculoskeletal: Reports: No Symptoms Skin: Reports: No Symptoms Neurological: Reports: No Symptoms. Denies: Confusion, Dizziness, Headache, Numbness, Tingling, Difficulty Walking, Gait Disturbance Psychiatric: Reports: No Symptoms - Patient Data Vitals - Most Recent: Last Vital Signs Temp 98.1 F 09/06/17 15:20 Pulse 77 09/06/17 21:07 Resp 14 09/06/17 15:20 BP 143/92 H 09/06/17 21:07 Pulse Ox 97 09/06/17 15:20 Weight - Most Recent: 304 lb I&O - Last 24 hours: Intake & Output 09/06/17 09/06/17 09/07/17 14:59 22:59 06:59 Intake Total 240 1000 Balance 240 1000 Lab Results - Last 24 hrs: Laboratory Results - last 24 hr 09/02/17 09/06/17 09/07/17 Range/Units 19:00 05:49 05:47 WBC 8.83 (3.98-10.04) K/mm3 RBC 4.22 (3.98-5.22) M/mm3 Hgb 11.6 (11.2-15.7) gm/L Hct 35.7 (34.1-44.9) % MCV 84.6 (79.4-94.8) fl MCH 27.5 (25.6-32.2) pg MCHC 32.5 (32.2-35.5) g/dl RDW Std Deviation 45.0 (36.4-46.3) fL Plt Count 385 H (182-369) K/mm3 MPV 10.1 (9.4-12.3) fl Neut % (Auto) 58.9 (34.0-71.1) % Lymph % (Auto) 25.5 (19.3-51.7) % Beaver % (Auto) 6.8 (4.7-12.5) % Eos % (Auto) 4.1 (0.7-5.8) Baso % (Auto) 1.0 (0.1-1.2) % Neut # (Auto) 5.20 (1.56-6.13) K/mm3 Lymph # (Auto) 2.25 (1.18-3.74) K/mm3 Beaver # (Auto) 0.60 H (0.24-0.36) K/mm3 Eos # (Auto) 0.36 (0.04-0.36) K/mm3 Baso # (Auto) 0.09 H (0.01-0.08) K/mm3 C-Reactive Protein 41.6 H* 19.4 H* (<1.0) mg/dL ALIZE Results - Last 24 hrs: Microbiology 09/04/17 20:05 Aerobic Blood Culture - Preliminary Blood - Venous NO GROWTH AFTER 2 DAYS Anaerobic Blood Culture - Preliminary NO GROWTH AFTER 2 DAYS 09/04/17 20:20 Aerobic Blood Culture - Preliminary Blood - Venous - Lab Draw NO GROWTH AFTER 2 DAYS Anaerobic Blood Culture - Preliminary NO GROWTH AFTER 2 DAYS 09/02/17 19:10 Aerobic Blood Culture - Preliminary Blood - Venous - Lab Draw NO GROWTH AFTER 4 DAYS Anaerobic Blood Culture - Final Escherichia Coli 09/02/17 19:00 Aerobic Blood Culture - Preliminary Blood - Venous NO GROWTH AFTER 4 DAYS Anaerobic Blood Culture - Final Escherichia Coli Med Orders - Current: Current Medications Acetaminophen (Tylenol) 650 mg PO Q4H PRN PRN Reason: Pain (Mild 1-3)/fever Last Admin: 09/05/17 20:59 Dose: 650 mg Hydrocodone Bitart/Acetaminophen ([place] 325-5 Mg) 1 tab PO Q4H PRN PRN Reason: Pain (moderate 4-6) Last Admin: 09/06/17 04:00 Dose: 1 tab Al Hydroxide/Mg Hydroxide (Mag-Al Plus) 30 ml PO Q4H PRN PRN Reason: Heartburn Last Admin: 09/06/17 23:07 Dose: 30 ml Albuterol/Ipratropium (Duoneb 3.0-0.5 Mg/3 Ml) 3 ml NEB Q4H PRN PRN Reason: Shortness Of Breath/wheezing Bisacodyl (Dulcolax) 5 mg PO DAILY PRN PRN Reason: Constipation Clonazepam (Klonopin) 0.5 mg PO BEDTIME [facility] Last Admin: 09/06/17 21:07 Dose: 0.5 mg Clonidine HCl (Catapres) 0.1 mg PO BID [facility] Last Admin: 09/06/17 21:05 Dose: 0.1 mg Docusate Sodium (Colace) 100 mg PO BID PRN PRN Reason: Constipation Last Admin: 09/04/17 18:09 Dose: 100 mg Furosemide (Lasix) 40 mg PO DAILY [facility] Last Admin: 09/06/17 08:26 Dose: 40 mg Heparin Sodium (Porcine) (Heparin Sodium) 5,000 units SUBCUT Q8H [facility] Last Admin: 09/07/17 06:44 Dose: 5,000 units Hydralazine HCl (Apresoline) 20 mg IVPUSH Q4H PRN PRN Reason: Hypertension Last Admin: 09/05/17 16:24 Dose: 20 mg Hydromorphone HCl (Dilaudid) 0.5 mg IVPUSH Q2H PRN PRN Reason: Pain (severe 7-10) Last Admin: 09/03/17 20:00 Dose: 0.5 mg Promethazine HCl 12.5 mg/ (Sodium Chloride) 50.5 mls @ 100 mls/hr IV Q6H PRN PRN Reason: Nausea/Vomiting Levofloxacin (Levaquin) 500 mg PO Q24H [facility] Last Admin: 09/06/17 15:20 Dose: 500 mg Lisinopril (Prinivil) 20 mg PO DAILY [facility] Last Admin: 09/04/17 09:16 Dose: 20 mg Lorazepam (Ativan) 2 mg IVPUSH Q4H PRN PRN Reason: Seizures Lorazepam (Ativan) 1 mg IV Q6H PRN PRN Reason: Anxiety Magnesium Sulfate (Pharmacy To Dose - Magnesium Replacement) 1 dose .XX ASDIRECTED [facility] Metoprolol Tartrate (Lopressor) 5 mg IVPUSH Q4H PRN PRN Reason: Tachycardia Last Admin: 09/04/17 17:07 Dose: 5 mg Metoprolol Tartrate (Lopressor) 25 mg PO Q12HR [facility] Last Admin: 09/06/17 21:07 Dose: 25 mg Ondansetron HCl (Zofran) 4 mg IV Q6H PRN PRN Reason: Nausea/Vomiting Desvenlafaxine Succinate [Pristiq] 25 Mg 0 each PO DAILY [facility] Last Admin: 09/06/17 08:26 Dose: Not Given Lurasidone Hcl [ (Latuda] 60 Mg) 0 each PO DAILY [facility] Last Admin: 09/06/17 08:27 Dose: Not Given Polyethylene Glycol (Miralax) 17 gm PO DAILY PRN PRN Reason: Constipation Potassium Chloride (Pharmacy To Dose - Potassium Replacement) 1 dose .XX ASDIRECTED [facility] Quetiapine Fumarate (Seroquel) 300 mg PO BEDTIME [facility] Last Admin: 09/06/17 21:05 Dose: 300 mg Saccharomyces Boulardii (Florastor) 250 mg PO BID [facility] Last Admin: 09/06/17 21:04 Dose: 250 mg Senna/Docusate Sodium (Senna Plus) 1 tab PO BID PRN PRN Reason: Constipation Sodium Chloride (Saline Flush) 10 ml FLUSH ONETIME PRN PRN Reason: IV FLUSH Last Admin: 09/05/17 01:30 Dose: 10 ml Sucralfate (Carafate) 1 gm PO Q6H PRN PRN Reason: Abdominal Pain Last Admin: 09/03/17 04:55 Dose: 1 gm Sumatriptan Succinate (Imitrex) 6 mg SUBCUT DAILY PRN PRN Reason: Headache Last Admin: 09/06/17 06:00 Dose: 6 mg Temazepam (Restoril) 15 mg PO BEDTIME PRN PRN Reason: Sleep Last Admin: 09/05/17 21:36 Dose: 15 mg Tizanidine HCl (Zanaflex) 2 mg PO Q6H PRN PRN Reason: Spasms Last Admin: 09/05/17 21:35 Dose: 2 mg Discontinued Medications Acetaminophen (Tylenol) 975 mg PO NOW ONE Stop: 09/02/17 21:20 Last Admin: 09/02/17 21:26 Dose: 975 mg Bumetanide (Bumex) 1 mg IVPUSH ONETIME ONE Stop: 09/04/17 17:42 Last Admin: 09/04/17 18:09 Dose: 1 mg Clonidine HCl (Catapres) 0.1 mg PO DAILY [facility] Last Admin: 09/04/17 09:16 Dose: 0.1 mg Al Hydroxide/Mg Hydroxide 30 (ml/ Lidocaine HCl 15 ml) 0 ml PO ONETIME ONE Stop: 09/02/17 20:27 Last Admin: 09/02/17 20:29 Dose: 45 ml Hydromorphone HCl (Dilaudid) 0.5 mg IVPUSH ONETIME ONE Stop: 09/02/17 20:49 Last Admin: 09/02/17 21:11 Dose: 0.5 mg Hydromorphone HCl (Dilaudid) 2 mg IVPUSH ONETIME ONE Stop: 09/03/17 16:45 Last Admin: 09/03/17 17:20 Dose: Not Given Hydromorphone HCl (Dilaudid) 2 mg IVPUSH ONETIME ONE Stop: 09/03/17 17:16 Hydromorphone HCl (Dilaudid) 2 mg IVPUSH ONETIME ONE Stop: 09/03/17 17:16 Last Admin: 09/03/17 17:31 Dose: Not Given Hydromorphone HCl (Dilaudid) 2 mg IVPUSH ONETIME ONE Stop: 09/03/17 17:31 Last Admin: 09/03/17 17:31 Dose: Not Given Hydromorphone HCl (Dilaudid) 2 mg IV ONETIME ONE Stop: 09/03/17 17:31 Last Admin: 09/03/17 17:28 Dose: 2 mg Hydromorphone HCl (Dilaudid) 0.5 mg IVPUSH ONETIME ONE Stop: 09/03/17 17:31 Last Admin: 09/03/17 17:32 Dose: Not Given Sodium Chloride (Normal Saline) 1,000 mls @ 250 mls/hr IV ASDIRECTED [facility] Last Admin: 09/03/17 02:23 Dose: 250 mls/hr Clindamycin Phosphate 900 mg/ (Sodium Chloride) 106 mls @ 100 mls/hr IV ONETIME ONE Stop: 09/02/17 20:36 Last Admin: 09/02/17 20:02 Dose: 100 mls/hr Vancomycin HCl 2 gm/ Sodium (Chloride) 250 mls @ 250 mls/hr IV ONETIME ONE Stop: 09/02/17 20:33 Last Admin: 09/02/17 20:04 Dose: 250 mls/hr Piperacillin Sod/Tazobactam (Sod 4.5 gm/ Sodium Chloride) 100 mls @ 25 mls/hr IV Q8H [facility] Last Admin: 09/04/17 11:38 Dose: 25 mls/hr Vancomycin HCl 2 gm/ Sodium (Chloride) 500 mls @ 250 mls/hr IV Q12H [facility] Last Admin: 09/03/17 08:58 Dose: Not Given Piperacillin Sod/Tazobactam (Sod 4.5 gm/ Sodium Chloride) 100 mls @ 200 mls/hr IV ONETIME ONE Stop: 09/02/17 22:59 Last Admin: 09/02/17 22:57 Dose: 200 mls/hr Vancomycin HCl 1.5 gm/ Sodium (Chloride) 500 mls @ 250 mls/hr IV Q12H [facility] Last Admin: 09/03/17 09:47 Dose: Not Given Vancomycin HCl 1.5 gm/ Sodium (Chloride) 500 mls @ 250 mls/hr IV Q12H [facility] Last Admin: 09/03/17 10:12 Dose: 250 mls/hr Sodium Chloride (Normal Saline) 1,000 mls @ 150 mls/hr IV ASDIRECTED [facility] Last Admin: 09/04/17 11:38 Dose: 150 mls/hr Levofloxacin/Dextrose 500 mg/ (Premix) 100 mls @ 100 mls/hr IV ONETIME ONE Stop: 09/04/17 18:34 Last Admin: 09/04/17 18:09 Dose: 100 mls/hr Levofloxacin/Dextrose 500 mg/ (Premix) 100 mls @ 100 mls/hr IV Q24H [facility] Sodium Chloride (Normal Saline) 1,000 mls @ 20 mls/hr IV ASDIRECTED [facility] Stop: 09/08/17 17:54 Last Admin: 09/04/17 20:37 Dose: 20 mls/hr Levofloxacin/Dextrose 500 mg/ (Premix) 100 mls @ 100 mls/hr IV Q24H [facility] Last Admin: 09/05/17 16:23 Dose: 100 mls/hr Sodium Chloride (Normal Saline) 250 mls @ 999 mls/hr IV ASDIRECTED [facility] Stop: 09/05/17 06:00 Last Admin: 09/05/17 01:38 Dose: 999 mls/hr Sodium Chloride (Normal Saline) 100 mls @ 65 mls/hr IV ASDIRECTED [facility] Stop: 09/06/19 06:00 Last Admin: 09/05/17 01:30 Dose: 65 mls/hr Ibuprofen (Motrin) 800 mg PO ONETIME ONE Stop: 09/02/17 19:14 Last Admin: 09/02/17 19:20 Dose: 800 mg Iopamidol (Isovue-370 (76%)) 100 ml IVPUSH ONETIME ONE Stop: 09/05/17 00:57 Last Admin: 09/05/17 01:30 Dose: 100 ml Iopamidol (Isovue-370 (76%)) 50 ml IVPUSH ONETIME ONE Stop: 09/05/17 00:57 Last Admin: 09/05/17 01:30 Dose: 50 ml Metoclopramide HCl (Reglan) 10 mg IVPUSH ONETIME ONE Stop: 09/02/17 20:50 Last Admin: 09/02/17 21:09 Dose: 10 mg Metoclopramide HCl (Reglan) 5 mg PO Q6H [facility] Last Admin: 09/03/17 08:03 Dose: 5 mg Metoclopramide HCl (Reglan) 5 mg IVPUSH ONETIME ONE Stop: 09/06/17 07:35 Last Admin: 09/06/17 08:24 Dose: 5 mg Metoprolol Tartrate (Lopressor) 50 mg PO ONETIME ONE Stop: 09/04/17 23:27 Last Admin: 09/04/17 23:41 Dose: 50 mg Naproxen (Naprosyn) 500 mg PO ONETIME ONE Stop: 09/06/17 07:33 Last Admin: 09/06/17 08:26 Dose: 500 mg Potassium Chloride (Klor-Con M20) 40 meq PO Q4H [facility] Stop: 09/03/17 01:46 Last Admin: 09/03/17 02:22 Dose: 40 meq Quetiapine Fumarate (Seroquel) 300 mg PO DAILY [facility] Last Admin: 09/03/17 08:06 Dose: Not Given Vancomycin HCl (Vancomycin) 2,020.755 mg 15 mg/kg (2020.755 mg) IV Q12H [facility] Last Admin: 09/03/17 08:58 Dose: Not Given Vancomycin HCl (Pharmacy To Dose - Vancomycin) 1 dose .XX ASDIRECTED [facility] - Exam Quality Assessment: Reports: DVT Prophylaxis General: Reports: Alert, Oriented, No Acute Distress HEENT: Reports: Pupils Equal, Pupils Reactive, EOMI Neck: Reports: Supple, Trachea Midline, No JVD Lungs: Reports: Clear to Auscultation, Normal Respiratory Effort Cardiovascular: Reports: Regular Rate, Regular Rhythm GI/Abdominal Exam: Normal Bowel Sounds, Soft, Non-Tender, No Distention (Female) Exam: Deferred Rectal (Female) Exam: Deferred Back Exam: Reports: Normal Inspection, Full Range of Motion Extremities: Normal Inspection, Normal Range of Motion, Non-Tender, No Pedal Edema, Normal Capillary Refill, Other (large fissure on right foot ) Skin: Reports: Warm, Dry, Intact Wound/Incisions: Reports: No Drainage. Denies: Erythema Neurological: Reports: No New Focal Deficit Psy/Mental Status: Reports: Alert, Normal Affect, Normal Mood
[2017-09-07] MEDS: Saccharomyces Boulardii (Probiotic) 250 MG Cap PO SCH (09:00)
[2017-09-07] MEDS: cloNIDine 0.1 MG Tab PO SCH (09:00)
[2017-09-07] MEDS: Furosemide 40 MG Tab PO SCH (09:00)
[2017-09-07 09:01] VITALS: BP 145/87
[2017-09-07] MEDS: Metoprolol Tartrate 25 MG Tab PO SCH (09:01)
[2017-09-07] MEDS: Desvenlafaxine Succinate [Pristiq] 25 MG PO SCH (12:48)
[2017-09-07] MEDS: Lurasidone Hcl [Latuda] 60 MG PO SCH (12:49)
== END 2017-09-07 12:58 | disposition home or self-care (01) | DRG 872 ==
LOC: JD.ED 18:46 → JD.MS 21:27
PROVIDERS: ADMIT Internal Medicine; ATTEND Internal Medicine
DX: A41.9 Sepsis, unspecified organism (principal); A41.51 Sepsis due to Escherichia coli [E. coli]; L08.9 Local infection of the skin and subcutaneous tissue, unspecified; N39.0 Urinary tract infection, site not specified; L98.491 Non-pressure chronic ulcer of skin of other sites limited to breakdown of skin; Z68.41 Body mass index [BMI] 40.0-44.9, adult; I10 Essential (primary) hypertension; L97.429 Non-pressure chronic ulcer of left heel and midfoot with unspecified severity; N17.9 Acute kidney failure, unspecified; Z86.73 Personal history of transient ischemic attack (TIA), and cerebral infarction without residual deficits; I31.3 Pericardial effusion (noninflammatory); R65.20 Severe sepsis without septic shock; G62.9 Polyneuropathy, unspecified; E87.6 Hypokalemia; E78.5 Hyperlipidemia, unspecified; J45.909 Unspecified asthma, uncomplicated; K21.9 Gastro-esophageal reflux disease without esophagitis; K44.9 Diaphragmatic hernia without obstruction or gangrene; B96.20 Unspecified Escherichia coli [E. coli] as the cause of diseases classified elsewhere; Q66.7 Congenital pes cavus; I12.9 Hypertensive chronic kidney disease with stage 1 through stage 4 chronic kidney disease, or unspecified chronic kidney disease; M79.651 Pain in right thigh; N18.3 Chronic kidney disease, stage 3 (moderate); H54.7 Unspecified visual loss; M54.40 Lumbago with sciatica, unspecified side; E78.00 Pure hypercholesterolemia, unspecified; E66.01 Morbid (severe) obesity due to excess calories; F31.9 Bipolar disorder, unspecified; G25.0 Essential tremor; Z79.899 Other long term (current) drug therapy; R56.9 Unspecified convulsions; G43.909 Migraine, unspecified, not intractable, without status migrainosus; Z88.8 Allergy status to other drugs, medicaments and biological substances; B95.61 Methicillin susceptible Staphylococcus aureus infection as the cause of diseases classified elsewhere
CPT/HCPCS: 36415; 71045; 73630; 80053; 82550; 83036; 83605; 83735; 83880; 84439; 84443; 85007; 85027; 85652; 86140; 87040 ×2; 93005; 96361; 96365; 96368; 96375; 99285; A9270 ×4; J1170; J2765; J3370; J7030; J7040; J7050; 71275; 71275-26; 78315; 78315-26; 80048; 80061; 81001; 85025; 85379; 87070; 87077; 87086; 87088; 87186; 93010; 93306; 93971-26-RT; 93971-RT; 97110-GP; 97162-GP; 97165-GO; A9503; J0360; J1644; J1956; J2543; J3030; J3490; Q9967